=== PATIENT | female | born 1960 | race Caucasian/White ===

== ENCOUNTER 2023-04-14 12:19 | Outpatient (REF) | payer BC, SELFPAY ==
--- NOTE | ~2023-04-14 | XR_ITS ---
EXAMINATION: XR PELVIS CLINICAL INFORMATION: Hip pain. COMPARISON: Radiographs dated 03/10/2020. TECHNIQUE: 2 AP views of the pelvis are submitted. FINDINGS: There is bony demineralization. Prosthetic components of the bilateral total hip arthroplasties are appropriately aligned. No periprosthetic fracture. The sacroiliac joints are symmetric and well-maintained, and pubic symphysis is intact. There are pelvic phleboliths. There are incompletely characterized degenerative changes of the lower lumbar spine. XR/XR pelvis 1-2V IMPRESSION: There are intact bilateral hip total arthroplasties. No hardware failure or loosening is seen, and there is no periprosthetic fracture noted.
== END 2023-04-14 12:20 | disposition home or self-care (01) ==
LOC: HO.HOSX 12:19
PROVIDERS: Visit Provider Orthopaedic Surgery
DX: M25.552 Pain in left hip (principal)
CPT/HCPCS: 72170

== ENCOUNTER 2023-04-14 14:54 | Outpatient (AMB) | payer BC, SELFPAY ==
--- NOTE | 2023-04-14 14:55 | MHC.OFFVIS ---
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 HX of Left MONIKA in 2015. Allergies erythromycin base [ERYTHROMYCIN BASE] Allergy (Severe, Unverified 04/03/20 18:37) ANAPHYLAXIS peanut [PEANUT] Allergy (Severe, Unverified 04/03/20 18:37) ANAPHYLAXIS honey [HONEY] Allergy (Intermediate, Unverified 04/03/20 18:37) HIVES,NAUSEA,DYSPNEA latex [LATEX] Allergy (Intermediate, Unverified 04/03/20 18:37) BLISTERS-SEVERE oxycodone [OXYCODONE] Adverse Reaction (Unknown, Unverified 04/03/20 18:37) NAUSEA & VOMITING ENVIRONMENTAL Allergy (Intermediate, Uncoded 04/03/20 18:37) SINUS PROBLEMS,VERTIGO MAPLE SYRUP Allergy (Intermediate, Uncoded 04/03/20 18:37) HIVES,NAUSEA,DYSPNEA Erythromycin Allergy (Unknown, Uncoded 03/10/20 00:00) HPI BILINGUAL TEACHER AIDE-Left hip pain HPI Details Talita is a 63 year old woman who presents with complains of left hip pain, onset ~4 months. She says while standing from a seated position she felt a painful snapping sensation deep in her hip. She complains of pain with daily activity, which she describes more as an ache that radiates down into her knee. She says stairs are very painful, especially if she leads with her right leg. She has not gelt this dis comfort since then. She wanted to come in and make sure everything was ok. 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 She plans on retiring soon to spend time with her . 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 Review of Systems Const All systems reviewed & are unremarkable except as noted in HPI and below Physical Exam Const General: no acute distress, alert and awake Orientation/consciousness: patient oriented x3 HEENT Head: Yes normocephalic and Yes atraumatic Eyes EOM: EOMs intact bilaterally Resp Effort & Inspection: normal respiratory effort and able to speak in complete sentences Cardio Jugular venous distension: no JVD Skin General skin exam: turgor normal Rashes: no rashes Neuro General: patient oriented x3 Extrem Other: Left Hip: Full ROM Walking normally No pain with hip ROM Psych Appearance: grossly normal Affect: normal affect Attitude: cooperative Results Reviewed Results Reviewed: I personally reviewed relevant radiographs. Bilateral MONIKA in expected post operative position with no hardware complications or evidence of loosening Assessment & Plan Assessment & Plan (1) Left hip pain: Code(s): M25.552 - Pain in left hip Plan: This is a 63 year old woman with left hip pain. There is no evidence of prosthetic complication and by all accounts she seems to be doing well. She has occasional pain with daily activity, worse with using stairs. This is mostly posterolateral. Her pain occasionally radiates down into her knee. I discussed her radiogrpahs and my findings. No acute intervention warranted. She can follow up as needed. Plan Scribed for Ravi Bazan MD by Jm Vivar, medical donation professional, on 04/14/23 at 3:10 PM, EST. Orders: Orders XR pelvis 1-2V 04/14/23 M25.559 - Pain in unspecified hip Coding Level of Care Code New Pt Level 3 (06406) Diagnoses Left hip pain M25.552
== END 2023-04-14 15:13 | disposition home or self-care (01) ==
PROVIDERS: Visit Provider Orthopaedic Surgery
DX: M25.552 Pain in left hip (principal)
CPT/HCPCS: 99203

== ENCOUNTER 2024-12-03 14:02 | Outpatient (AMB) | payer BC, SELFPAY ==
--- OUTSIDE RECORDS SUMMARY | 2024-12-03 14:08 | XMS_ITS | Clinical Summary ---
Author Organization [facility] [address] [place] [address] Address [address], [place] Phone Care Team Providers Care Soaker Name Role Phone Ruben Guan MD Primary Care Provider [phone] Allergies Active Allergy Reactions Criticality Noted Date Comments Egg Nausea And Vomiting 11/17/2015 Erythromycin 10/13/2021 Latex Other 11/17/2015 Levofloxacin 10/13/2021 Medications acetaminophen (TYLENOL) 500 mg tablet Take 500 mg by mouth 3 times daily. Takes 2 tab TID Active desloratadine-pseu doephedrine (CLARINEX-D 12-hour) 2.5-120 mg per 12 hr tablet Active docusate sodium (COLACE) 100 mg capsule Take 100 mg by mouth 2 times daily. 200 docusate Active meclizine (ANTIVERT) 25 mg tablet 2 tablets (50 mg total) 4 (four) times a day. 11/17/19 16 Active senna (SENOKOT) 8.6 mg tablet Take 1 tablet by mouth daily. Active albuterol HFA (PROAIR HFA ; PROVENTIL HFA ; VENTOLIN HFA) 90 mcg/actuation inhaler 1 (one) time each day if needed. 06/07/20 24 Active calcium carbonate-cholecal ciferol (OYSTER SHELL) 250 mg-3.125 mcg (125 unit) per tablet Take 1 tablet by mouth 1 (one) time each day. Active prucalopride (Motegrity) 2 mg tabletIndications: Irritable bowel syndrome with constipation Take 2 mg by mouth 1 (one) time each day. 90 tablet 2 08/22/19 25 026 Active polyethylene glycol (Golytely) 236-22.74-6.74 -5.86 gram solution Take 4L by mouth once for one dose. May substitue any PEG. Starting at 6PM the night before your procedure drink 1 8oz glasses at your own pace until you complete half of the gallon. Finish 2nd half of the gallon 5 hours before your procedure. 4000 mL 10/13/19 25 Active cholecalciferol, vitamin D3, (VITAMIN D3 ORAL) Take by mouth 1 (one) time each day. Active magnesium citrate 100 mg tablet Take 200 mg by mouth. Active cefdinir (OMNICEF) 300 mg capsule Take 1 capsule (300 mg total) by mouth 2 (two) times a day if needed. 08/24/19 25 Active diclofenac (VOLTAREN) 1 % topical gel APPLY TO AFFECTED AREA S) FOUR TIMES A DAY NEEDED FOR PAIN 06/13/20 24 Active EPINEPHrine (EPIPEN) 0.3 mg/0.3 mL injection FOLLOW PACKAGE INSTRUCTIONS DIRECTED 01/11/20 24 Active fluconazole (DIFLUCAN) 100 mg tablet Take 1 tablet (100 mg total) by mouth 1 (one) time each day if needed. 09/10/19 25 Active fluticasone furoate-vilanteroL (BREO ELLIPTA) 100-25 mcg/dose inhaler Inhale 1 puff by mouth 1 (one) time each day. 10/06/19 25 Active gabapentin (NEURONTIN) 100 mg capsule Take 2 capsules (200 mg total) by mouth. 09/28/19 25 Active methylPREDNISolone (MEDROL DOSPAK) 4 mg tablet if needed. 03/29/20 24 Active montelukast (SINGULAIR) 10 mg tablet Take 1 tablet (10 mg total) by mouth. at bedtime 08/21/19 25 Active mupirocin (BACTROBAN) 2 % ointment APPLY TOPICALLY TO AFFECTED AREA TWO TIMES A DAY FOR 14 DAYS 10/06/19 25 Active nystatin (MYCOSTATIN) 500,000 unit tablet Take 3 tablets (1,500,000 Units total) by mouth 2 (two) times a day. 08/08/19 25 Active ondansetron ODT (ZOFRAN-ODT) 4 mg disintegrating tablet Take 1 tablet (4 mg total) by mouth. 10/21/19 21 Active SUMAtriptan (IMITREX) 50 mg tablet Take one tab by mouth at onset of migraine. May repeat dose once after 2 hours, if needed. Not to exceed 2 tabs in 24 hours. 10/21/19 21 Active hydroCHLOROthiazid e (HYDRODIURIL) 50 mg tablet Take 1 tablet (50 mg total) by mouth every other day. 08/10/19 25 Active QNASL 80 mcg/actuation HFA aerosol inhaler Administer 2 sprays into each nostril 1 (one) time each day. 09/22/19 25 Active UNABLE TO FIND 1 capsule 1 (one) time each day. Med Name: nature's bounty hair growth Active ibuprofen (ADVIL,MOTRIN) 800 mg tablet Take 1 tablet (800 mg total) by mouth 4 (four) times a day. Active UNABLE TO FIND 3 capsules 1 (one) time each day. Med Name: balance of jellyfish: 3 fruits and 3 vegetable capsules Active diphenhydrAMINE (BENADRYL) 50 mg tablet Take 1 tablet (50 mg total) by mouth if needed for itching or allergies. Active linaCLOtide (Linzess) 145 mcg capsuleIndications :Constipation, unspecified constipation type Take 1 capsule (145 mcg total) by mouth 1 (one) time each day. 30 each 2 10/30/19 25 025 Active linaCLOtide (Linzess) 290 mcg capsuleIndications :Chronic idiopathic constipation Take 1 capsule (290 mcg total) by mouth 1 (one) time each day. 90 each 3 12/01/19 25 026 Active Active Problems Problem Noted Date Diagnosed Date Smoking history 10/26/2024 Thoracic spondylosis 03/10/2016 Tubular adenoma of colon 03/10/2016 Chronic idiopathic constipation 11/17/2015 HTN (hypertension) 11/17/2015 Encounters Date Type Department Care Team Description 11/30/2024 Telephone Gastroenterology - [address] [phone] Cheryl Maldonado MD 10/29/2024 Telephone Gastroenterology - 299 [facility] [address] [phone] Ness Casanova [place] 10/26/2024 2:43 PM EDT Anesthesia Event [facility] Endoscopy [address] [place] [phone] Olive Underwood MD 10/26/2024 12:56 PM EDT - 10/26/2024 11:59 PM EDT Hospital Encounter [facility] Endoscopy [address] [place] [phone] Cheryl Maldonado MD Dusza, Sara, CRNA Kriz, Petra, MD Personal history of hyperplastic colon polyps Discharge Disposition: Home or Self Care from Last 3 Months Immunizations Name Administration Dates Next Due Influenza trivalent, with preservative (Fluzone; Afluria) 6mo and older 06/18/2021,04/22/2020,03/28/2019,2017 PPD Test 02/10/2016 Tdap Tetanus diptheria acell ular pertussis (Boostrix; Adacel) 7yo and older 04/30/2015 Surgical History Surgery Date Site/Laterality Comments OTHER SURGICAL HISTORY 2014 Left PROCEDURE: NH ARTHRP ACETBLR/PROX FEM PROSTC AGRFT/ALGRFT PARTIAL HYSTERECTOMY 2001 PROCEDURE: NH SUPRACERVICAL ABDL HYSTER W/WO RMVL TUBE OVARY; COMMENT: prolapse CARPAL TUNNEL RELEASE Bilateral PROCEDURE: HISTORICAL CARPAL TUNNEL REL OTHER SURGICAL HISTORY 2012 Right PROCEDURE: NH EXC CYST/ABERRANT BREAST TISSUE OPEN 1/> LESION; COMMENT: beningn mass and ductectomy NOSE SURGERY PROCEDURE: NH UNLISTED PROCEDURE NOSE; COMMENT: sinoplasty OTHER SURGICAL HISTORY 11/12/13 PROCEDURE: OUTSIDE PAP SMEAR OTHER SURGICAL HISTORY PROCEDURE: ---- OTHER ----; COMMENT: inclusion cyst R neck COLONOSCOPY 10/29/08 PROCEDURE: HISTORICAL COLONOSCOPY OTHER SURGICAL HISTORY 11/2015 Right PROCEDURE: NH ARTHRP ACETBLR/PROX FEM PROSTC AGRFT/ALGRFT LUMBAR SPINE SURGERY Medical History Medical History Date Comments HTN (hypertension) 11/17/2015 DX:HTN (hyper tension) Multiple environmental allergies 11/17/2015 DX:Multiple environmental allergies; COMMENT: Follows with Dr Castillo Status post total hip replac ement, left 11/17/2015 DX:Status post total hip rep lacement, bilat ; COMMENT: For OA Chronic idiopathic constipation 11/17/2015 DX:Chronic idiopathic constipation Tubular adenoma of colon 03/10/2016 DX:Tubu lar adenoma of colon Thoracic spondylosis 03/10/2016 DX:Thoracic spondylosis S/P lumbar laminectomy 10/09/2020 DX:S/P oliva mbar laminectomy; COMMENT: Bilateral L4-L5 laminotomy, partial facetectomy and foraminotomy to decompress the thecal sac and exiting nerve roots with microscope-Dr. Rizvi Migraine Asthma Irritable bowel syndrome Breast mass, right with ductecto my Family History Medical History Relation Name Comments Hypertension Father chol, hip repla cement Other: ovarian cancer Maternal Grandmother Diabetes Mother Other: back problems Mother brother , sister Multiple sclerosis Sister 1 Relation Name Status Comments Father Alive Maternal Grandmother Mother Alive Sister 1 Sister 2 Social History Tobacco Use Types Packs/Day Years Used Date Smoking Tobacco: Every Day Cigarettes Tobacco Cessation:Ready to Q uit: Not Asked; Counseling Given: Not Answered Alcohol Use Standard Drinks/Week Comments Yes 0 (1 standard drink = 0.6 oz pur e alcohol) rare Interpersonal Safety Answer Date Record ed Physical Abuse 10/26/2024 Verbal Abuse 10/26/2024 Comments No Sex and Gender Information Value Date Recorded Sex Assigned at Female 10/26/2024 12:55 PM EDT Legal Sex Female 7:26 AM EST Gender Identity Female 10/26/2024 12:55 PM EDT Sexual Orientation Straight 10/26/2024 12 :55 PM EDT Obstetrics History Last Filed Vital Signs Vital Sign Reading Time Taken Comments Blood Pressure 129/77 10/26/2024 3:37 PM EDT Pulse 97 10/26/2024 3:37 PM EDT Temperature 36.3 ??C (97.3 ??F) 10/26/2024 2:26 PM ED T Respiratory Rate 19 10/26/2024 3:37 PM EDT Oxygen Saturation 98% 10/26/2024 3:37 PM EDT Inhaled Oxygen Concentration - - Weight 81.6 kg (180 lb) 10/26/2024 2:26 PM EDT Height 165.1 cm (5' 5 ) 10/26/2024 2:26 PM EDT Body Mass Index 29.95 10/26/2024 2:26 PM EDT Plan of Treatment Health Maintenance Due Date Last Done Comments Breast Cancer Screening 1960 Zoster Vaccines (1 of 2) 01/07/2012 Cervical Cancer Screening: Pap Smear 11/12/2016 11/12/2013 Cholesterol Screening (Lipid Panel) 06/20/2022 11/17/2015 Depression Screening 06/20/2022 HIV Screening 06/20/2022 Hepatitis C Screening 06/20/2022 Social Influencers of Health Screening 06/20/2022 Hypertension/CHF/CAD Annual BMP Blood Test 06/24/2022 11/17/2015 Pneumococcal Vaccine: 50+ Years (2 of 2 - PCV) 03/11/2024 03/11/2023 Pneumococcal Vaccine: Pediatrics (0 to 5 Years) and At-Risk Patients (6 to 64 Years) (2 of 2 - PCV) 03/11/2024 03/11/2023 DTaP,Tdap,and Td Vaccines (3 - Td or Tdap) 10/31/2033 11/01/2023, 04/30/2015 Colorectal Cancer Screening: Colonoscopy 10/26/2034 10/26/2024, 12/20/2012 RSV Immunization Adult Patients (1 - 1-dose 75+ series) 2037 COVID-19 Vaccine Completed 05/14/2024, , 05/18/2021, Additional history exists Influenza Vaccine Completed 05/14/2024, , 05/21/2022, Additional history exists HIB Vaccines Aged Out No longer eligi ble based on patient's age to complete this topic HPV Vaccines Aged Out No longer eligi ble based on patient's age to complete this topic Hepatitis A Vaccines Aged Out No long er eligible based on patient's age to complete this topic Hepatitis B Vaccines Aged Out No long er eligible based on patient's age to complete this topic IPV Vaccines Aged Out No longer eligi ble based on patient's age to complete this topic MMR Vaccines Aged Out No longer eligi ble based on patient's age to complete this topic Meningococcal ACWY Vaccine Aged Out N o longer eligible based on patient's age to complete this topic Meningococcal B Vaccine Aged Out No l onger eligible based on patient's age to complete this topic RSV Immunization Patients Under 20 months Aged Out No longer eligible based on patient's age to complete this topic Varicella Vaccines Aged Out No longer eligible based on patient's age to complete this topic Procedures Procedure Name Priority Date/Time Associated Diagnosis Comments COLONOSCOPY Routine 10/26/2024 3:16 PM EDT Personal history of hyperplastic colon polyps TISSUE EXAM Routine 10/26/2024 2:54 PM EDT Personal history of hyperplastic colon polyps ANNUAL BMP BLOOD TEST Routine 11/17/2015 LIPID PANEL Routine 11/17/2015 HM PAP SMEAR Routine 11/12/2013 from Last 3 Months or Most Recently Relevant to Health Maintenance Results * COLONOSCOPY Anesthesia - MAC; [facility] ENDOSCOPY (10/26/2024 3:16 PM EDT) Anatomical Region Laterality Modality Endoscopy 10/26/2024 2:40 PM EDT Impressions 10/26/2024 3:17 PM EDT - The examined portion of the ileum was normal. ? - One 4 mm polyp in the ascending colon, removed with ? a cold snare. Resected and retrieved. ? - Two 3 to 4 mm polyps in the ascending colon, removed ? with a cold snare. Resected and retrieved. ? - Two 7 to 10 mm polyps in the transverse colon, ? removed with a hot snare. Resected and retrieved. ? - Two 3 to 4 mm polyps in the descending colon, ? removed with a cold snare. Resected and retrieved. ? - Melanosis in the colon. ? - Internal hemorrhoids. Recommendation: ?- Await pathology results. ? - Repeat colonoscopy for surveillance based on ? pathology results. Narrative 10/26/2024 3:17 PM EDT [facility] GI Patient Name: Talita Samson Procedure Date: 10/26/2024 2:40 PM Date of : 1960 Age: 64 Gender: Female Note Status: Finalized Attending MD: Cheryl Maldonado MD, Procedure Date No Time: 10/26/2024 Procedure: ? Colonoscopy Indications: ? High risk colon cancer surveillance: Personal history ? of colonic polyps Providers: ? Cheryl Maldonado MD Referring MD: ?Cheryl Maldonado MD, Ruben Guan MD Medicines: ? Propofol per Anesthesia Complications: ? No immediate complications. Estimated Blood Loss: ? Estimated blood loss: none. Procedure: ? Pre-Anesthesia Assessment: ? - ASA Grade Assessment: III - A patient with severe ? systemic disease. ? After I obtained informed consent, the scope was ? passed under direct vision. Throughout the procedure, ? the patient's blood pressure, pulse, and oxygen ? saturations were monitored continuously.The Olympus ? Pediatric Colonoscope was introduced through the anus ? and advanced to the terminal ileum. The colonoscopy ? was performed without difficulty. The patient ? tolerated the procedure well. The quality of the bowel ? preparation was adequate. Findings: ?The perianal and digital rectal examinations were ? normal. ? The terminal ileum appeared normal. ? A 4 mm polyp was found in the ascending colon. The ? polyp was sessile. The polyp was removed with a cold ? snare. Resection and retrieval were complete. ? Two sessile polyps were found in the ascending colon. ? The polyps were 3 to 4 mm in size. These polyps were ? removed with a cold snare. Resection and retrieval ? were complete. ? Two sessile polyps were found in the transverse colon. ? The polyps were 7 to 10 mm in size. These polyps were ? removed with a hot snare. Resection and retrieval were ? complete. ? Two sessile polyps were found in the descending colon. ? The polyps were 3 to 4 mm in size. These polyps were ? removed with a cold snare. Resection and retrieval ? were complete. ? A diffuse area of moderate melanosis was found in the ? entire colon. ? Internal hemorrhoids were found during retroflexion. ? The hemorrhoids were Grade I (internal hemorrhoids ? that do not prolapse). Procedure Code(s): ? --- Professional --- ? 56897, Colonoscopy, flexible; with removal of ? tumor(s), polyp(s), or other lesion(s) by snare ? technique Diagnosis Code(s): ? --- Professional --- ? Z86.010, Personal history of colonic polyps ? D12.2, Benign neoplasm of ascending colon ? D12.3, Benign neoplasm of transverse colon (hepatic ? flexure or splenic flexure) ? D12.4, Benign neoplasm of descending colon CPT copyright 2020 [employer]. All rights reserved. The codes documented in this report are preliminary and upon braille coder review may be revised to meet current compliance requirements. Cheryl Maldonado MD 10/26/2024 3:17:26 PM This report has been signed electronically.Cheryl Maldonado MD Number of Addenda: 0 Note Initiated On: 10/26/2024 2:40 PM Scope In: Scope Out: ? Endoscopy Department at [facility] - [address] [place] [address], ? [place] [address] Procedure Note Cheryl Maldonado MD - 10/26/2024 [facility] GI Patient Name: Talita Samson Procedure Date: 10/26/2024 2:40 PM Date of : 1960 Age: 64 Gender: Female Note Status: Finalized Attending MD: Cheryl Maldonado MD, Procedure Date No Time: 10/26/2024 Procedure: Colonoscopy Indications: High risk colon cancer surveillance: Personalhistory of colonic polyps Providers: Cheryl Maldonado MD Referring MD: Cheryl Maldonado MD, Ruben Guan MD Medicines: Propofol per Anesthesia Complications: No immediate complications. Estimated Blood Loss: Estimated blood loss: none. Procedure: Pre-Anesthesia Assessment: - ASA Grade Assessment: III - A patient with severe systemic disease. After I obtained informed consent, the scope was passed under direct vision. Throughout theprocedure, the patient's blood pressure, pulse, and oxygen saturations were monitored continuously.The Olympus Pediatric Colonoscope was introduced through theanus and advanced to the terminal ileum. The colonoscopy was performed without difficulty. The patient tolerated the procedure well. The quality of thebowel preparation was adequate. Findings: The perianal and digital rectal examinations were normal. The terminal ileum appeared normal. A 4 mm polyp was found in the ascending colon. The polyp was sessile. The polyp was removed with acold snare. Resection and retrieval were complete. Two sessile polyps were found in the ascendingcolon. The polyps were 3 to 4 mm in size. These polypswere removed with a cold snare. Resection and retrieval were complete. Two sessile polyps were found in the transversecolon. The polyps were 7 to 10 mm in size. These polypswere removed with a hot snare. Resection and retrievalwere complete. Two sessile polyps were found in the descendingcolon. The polyps were 3 to 4 mm in size. These polypswere removed with a cold snare. Resection and retrieval were complete. A diffuse area of moderate melanosis was found inthe entire colon. Internal hemorrhoids were found duringretroflexion. The hemorrhoids were Grade I (internal hemorrhoids that do not prolapse). Procedure Code(s): --- Professional --- 35475, Colonoscopy, flexible; with removal of tumor(s), polyp(s), or other lesion(s) by snare technique Diagnosis Code(s): --- Professional --- Z86.010, Personal history of colonic polyps D12.2, Benign neoplasm of ascending colon D12.3, Benign neoplasm of transverse colon (hepatic flexure or splenic flexure) D12.4, Benign neoplasm of descending colon CPT copyright 2020 [employer]. All rights reserved. The codes documented in this report are preliminary and upon braille coder reviewmay be revised to meet current compliance requirements. Cheryl Maldonado MD 10/26/2024 3:17:26 PM This report has been signed electronically.Cheryl Maldonado MD Number of Addenda: 0 Note Initiated On: 10/26/2024 2:40 PM Scope In: Scope Out: Endoscopy Department at [facility] - [address] [place] [phone] IMPRESSION: - The examined portion of the ileum was normal. - One 4 mm polyp in the ascending colon, removedwith a cold snare. Resected and retrieved. - Two 3 to 4 mm polyps in the ascending colon,removed with a cold snare. Resected and retrieved. - Two 7 to 10 mm polyps in the transverse colon, removed with a hot snare. Resected and retrieved. - Two 3 to 4 mm polyps in the descending colon, removed with a cold snare. Resected andretrieved. - Melanosis in the colon. - Internal hemorrhoids. Recommendation: - Await pathology results. - Repeat colonoscopy for surveillance based on pathology results. us Cheryl Maldonado MD GI~PROCEDURE ORDERABLES Final Result * Tissue exam (10/26/2024 2:54 PM EDT) Final Diagnosis A. Polyp, ascending colon, polypectomy: - Tubular adenoma. - Colonic mucosa with increased pigment-laden macrophages in the lamina propria, suggestive of melanosis coli. B. Polyps (x4 per specimen label), transverse colon, polypectomy: - Tubular adenoma(s) (multiple (greater than four) fragments). C. Polyps (x2 per specimen label), descending colon, polypectomy: - Tubular adenoma (one fragment). - Colonic mucosa with features suggestive of a hyperplastic polyp (one fragment). 10/29/2024 10:37 AM EDT [facility] Gross Description A. Large Intestine, Right/Ascending Colon, polyp: Labeled ascending colon polyp . Received in formalin are two irregular pink-brown possible mucosal tissue fragments, measuring 0.3 cm and 0.5 cm in greatest dimension, which are wrapped in paper and submitted in toto in one cassette, two pieces, multiple levels on one slide. B. Large Intestine, Transverse Colon, polyps x4: Labeled trans colon polyp x 4 . Received in formalin are seven irregular disrupted monroy-pink to brown mucosal tissue fragments, ranging from less than 0.1 cm to 0.6 cm in greatest dimension, which are wrapped in paper and submitted in toto in one cassette, six pieces, multiple levels on one slide. C. Large Intestine, Left/Descending Colon, polyps x2: Labeled descending colon polyps x 2 . Received in formalin are two irregular monroy-pink to brown mucosal tissue fragments, measuring 0.5 cm and 0.8 cm in greatest dimension, which are wrapped in paper and submitted in toto in one cassette, two pieces, multiple levels on one slide. DANIELLE 10/29/2024 10:37 AM EDT [facility] Disclaimer Unless otherwise specified, all tissue is 10% NB formalin fixed and paraffin embedded. 10/29/2024 10:37 AM EDT [facility] Tissue Ascending colon structure / Unknown 10/26/2024 2:54 PM EDT 10/26/2024 4:14 PM EDT Tissue specimen (specimen) Transverse colon structure / Unknown 10/26/2024 3:07 PM EDT 10/26/2024 4:14 PM EDT Tissue specimen (specimen) Descending colon structure / Unknown 10/26/2024 3:09 PM EDT 10/26/2024 4:14 PM EDT Cheryl Maldonado MD LAB PATHOLOGY ORDERABLES Final Result [facility] [address] [place] [address], * Annual BMP Blood Test (11/17/2015) Annual [facility] Blood Test Abstracted Historical Provider HEALTH MAINTENANCE Final Result * (ABNORMAL) Lipid panel (11/17/2015) LDL/HDL Ratio 3 0 - 4 Triglycerides 155(A) 0 - 150 mg/dL Cholesterol 145 0 - 200 mg/dL HDL 51 >=40 mg/dL LDL Cholesterol 63 0 - 100 mg/dL Blood Venous blood specimen / Unknown us Historical Provider LAB BLOOD ORDERABLES Apurva l Result * Pap Smear (11/12/2013) Pap smear No Interpretation , Abstracted us Historical Provider HEALTH MAINTENANCE Final Result from Last 3 Months or Most Recently Relevant to Health Maintenance Insurance [facility] ([facility], [facility]) Care Teams Soaker Relationship Specialty Start Date End Date Ruben Guan MD [address] [place] [address] PCP - General Internal Medicine 06/27/24
--- OUTSIDE RECORDS SUMMARY | 2024-12-03 14:08 | XMS_ITS | Clinical Summary ---
Author Organization [facility] Address [address] [place] [address] Care Team Providers Care Bill Distributor Name Role Phone Zainab Tobin Primary Care Provider vailable Social History Tobacco Use Types Packs/Day Years Used Date Smoking Tobacco: Never Assessed Sex and Gender Information Value Date Recorded Sex Assigned at Not on file Gender Identity Not on file Sexual Orientation Not on file Plan of Treatment Health Maintenance Due Date Last Done Comments Hepatitis C Screening 1960 COVID-19 Vaccine (#1) 1960 Depression Screening 1974 Preventative Health Evaluation 01/07/1980 Cervical Cancer Screening (Pap Smear) 1983 Colon Cancer Screening (Colonoscopy) 2007 Breast Cancer Screening (Mammogram) 01/07/2012 Shingrix-Zoster Vaccine (1 o f 2) 01/07/2012 Influenza Vaccine (#1) 2024 0, 03/28/2019, 05/23/2018 DTap / Tdap / Td (2 - Td or Tdap) 04/30/2025 04/30/2015 RSV Adult > 60+ Yrs or (1 - 1-dose 75+ series) 2037 Hepatitis B Vaccines Aged Out No long er eligible based on patient's age to complete this topic Pneumococcal Vaccine Aged Out No long er eligible based on patient's age to complete this topic RSV Ped < 20 months Aged Out No longe r eligible based on patient's age to complete this topic Care Teams Bill Distributor Relationship Specialty Start Date End Date Zainab Tobin PCP - General Internal Medicine 10/15/20
--- OUTSIDE RECORDS SUMMARY | 2024-12-03 14:08 | XMS_ITS | Encounter Summary ---
Author Organization [facility] Address [address] [place] [address] Care Team Providers Care Youth Director Name Role Phone Hugo Guan MD Primary Care Provider [phone] Encounter Details Date Type Department Care Team ([facility] st Contact Info) Description 11/30/2024 Telephone Gastroenterology - [address] [facility] [address] [place] [id number] Cheryl Maldonado MD [address] [facility] [address] [place] [address] Social History Tobacco Use Types Packs/Day Years Used Date Smoking Tobacco: Every Day Cigarettes Alcohol Use Standard Drinks/Week Comments Yes 0 [...] Orientation Straight 10/26/2024 12 :55 PM EDT documented as of this encounter Progress Notes * Ness Casanova MA - 12/03/2024 8:19 AM EDT LMOM TO CALL BACK * Aga Vaca - 11/30/2024 1:25 PM EDT Pt called to see if she could double her Linzess dosage because she doesn't feel like her current dosage is helping anymore? documented in this encounter Plan of Treatment Not on file documented as of this encounter Visit Diagnoses Not on filedocumented in this encounter Care Teams Youth Director Relationship Specialty Start Date End Date Hugo Guan MD [address] [place] [id number] PCP - General Internal Medicine 06/27/24 documented as of this encounter
--- NOTE | 2024-12-03 14:15 | HO.SPINEOV ---
Intake Visit Reasons: Neck pain Intake Note: Ms. Samson is here today c/o neck pain. Erosion Control Coordinator Required: No Allergies erythromycin base [ERYTHROMYCIN BASE] Allergy (Severe, Unverified 04/03/20 18:37) ANAPHYLAXIS peanut [PEANUT] Allergy (Severe, Unverified 04/03/20 18:37) ANAPHYLAXIS honey [HONEY] Allergy (Intermediate, Unverified 04/03/20 18:37) HIVES,NAUSEA,DYSPNEA latex [LATEX] Allergy (Intermediate, Unverified 04/03/20 18:37) BLISTERS-SEVERE oxycodone [OXYCODONE] Adverse Reaction (Unknown, Unverified 04/03/20 18:37) NAUSEA & VOMITING ENVIRONMENTAL Allergy (Intermediate, Uncoded 04/03/20 18:37) SINUS PROBLEMS,VERTIGO MAPLE SYRUP Allergy (Intermediate, Uncoded 04/03/20 18:37) HIVES,NAUSEA,DYSPNEA Erythromycin Allergy (Unknown, Uncoded 03/10/20 00:00) Assessment & Plan Assessment & Plan (1) Cervical myelopathy: Code(s): G95.9 - Disease of spinal cord, unspecified Category: Medical (2) Numbness and tingling of left side of face: Code(s): R20.0 - Anesthesia of skin; R20.2 - Paresthesia of skin Category: Medical Plan Mrs Samson is here in follow-up. She is a patient known to us from our previous practice at [facility]. We did a lumbar laminectomy on her for stenosis, and have been following her clinically for what is borderline symptomatic cervical myelopathy. She was a nurse, very active and in general was not demonstrating any myelopathic signs on her exam and she had been reluctant to undergo neck surgery so our choice of treatment was to just monitor her symptomatically. Through a number of follow-up visits through the years she remained stable and given her clinical expertise we told her just to call us if she starts to get worsening symptoms and educated her. Fast forward over the last couple years, she has noticed an increase in numbness of her arms going into her hands and dropping things. About a month or more ago, she had an episode where the whole left side of her body went numb. This interestingly also included her face in her tongue. Her balance has been getting worse as well. On my exam today, she is able to stand up to the examining table on her own and walk in the hallways independently but tandem gait testing revealed some instability. She has good strength in bilateral upper and lower extremities. Slightly brisk reflexes on the right but no Arana's sign are no clonus. Face is symmetric, tongue midline, pupils equal responsive reactive to light, extraocular movements are intact without nystagmus. At this point without any recent imaging I think we should pursue cervical MRI. I will include the brain MRI as well given that she has been having numbness of her face and her tongue. It should be noted the patient has a strong family history for demyelinating diseases including not only her mother but her sister. Therefore I think we should at least exclude that she is not having some variant of MS with the facial numbness. Total amount of time spent in this visit was 20 minutes in discussion of symptoms, previous cervical MRI imaging results and subsequent plan of care Dario Rizvi MD,PhD [facility] [place] Orders: Orders MR head/brain wo con Today R20.0 - Anesthesia of skin, R20.2 - Paresthesia of skin MR cervical spine wo con Today G95.9 - Disease of spinal cord, unspecified Coding Level of Care Code Est Pt Level 3 (65626) Diagnoses Cervical myelopathy G95.9 Numbness and tingling of left side of face R20.0; R20.2
== END 2024-12-03 15:50 | disposition home or self-care (01) ==
LOC: HO.HNS 14:03
PROVIDERS: Visit Provider Physician Assistant
DX: G95.9 Disease of spinal cord, unspecified (principal); R20.0 Anesthesia of skin; R20.2 Paresthesia of skin
CPT/HCPCS: 99213

== ENCOUNTER → 2024-12-03 14:02 | Outpatient (BNVA) | payer BC, SELFPAY | PROVIDERS: Visit Provider Physician Assistant ==

== ENCOUNTER 2024-12-22 14:24 | Outpatient (REF) | payer BC, SELFPAY ==
--- NOTE | ~2024-12-22 | MR_ITS ---
CLINICAL HISTORY: G95.9 - Disease of spinal cord, unspecified MR cervical spine without gadolinium Comparison: None Findings: Visualized intracranial contents are unremarkable. Soft tissues of the neck are normal. Cervical cord normal size. Moderate ill-defined STIR signal elevation within the central substance of the cord at the C2-C3 disc space level. Loss of normal cervical lordosis. 4 mm of anterolisthesis of C2 on C3. 2 mm of retrolisthesis of C6 on C7. No acute fractures or pathologic bone lesions. Moderate reactive signal within the endplates adjacent to the C5-C6 and C6-C7 intervertebral disc. Mild reactive signal within the remaining cervical and upper thoracic endplates. C2-C3:Moderate disc desiccation. Mild diffuse disc bulge. Congenital canal stenosis. Moderate facet and uncovertebral hypertrophy bilaterally. Severe canal stenosis. Moderate cord flattening. Severe hdjh-ctrmelz-kksx-right foraminal stenosis with aoxg-vwiigfj-hsqj-right C3 nerve root compression. C3-C4:Congenital canal stenosis. Moderate disc desiccation. Mild diffuse disc bulge with superimposed right paracentral protrusion. Moderate facet and uncovertebral hypertrophy bilaterally. Severe canal stenosis with mild cord flattening. Severe right and moderate to severe left foraminal stenosis. Cfbkx-aosftzh-cgfn-left C4 nerve root compression. C4-C5:Moderate disc desiccation. Mild diffuse disc bulge with superimposed right paracentral protrusion. Congenital canal stenosis. Mild facet and uncovertebral hypertrophy. Severe canal stenosis. Mild right cord flattening. Moderate bilateral foraminal stenosis. C5-C6:Congenital canal stenosis. Moderate disc desiccation. Moderate diffuse disc bulge/osteophyte. Superimposed central broad-based protrusion. Moderate facet and uncovertebral hypertrophy bilaterally. Severe canal stenosis. Mild cord flattening. Moderate to severe right and severe left foraminal stenosis with zgyt-hecvcgq-umxq-right C6 nerve root compression. C6-C7:Moderate disc desiccation. Moderate diffuse disc bulge. Congenital canal stenosis. Facet and uncovertebral hypertrophy bilaterally. Severe canal stenosis. Mild cord flattening. Moderate to severe left and severe right foraminal stenosis. Wnqyo-ahwjdpa-ghbm-left C7 nerve root compression. C7-T1:Moderate disc desiccation. Mild diffuse disc bulge. Mild facet and uncovertebral hypertrophy bilaterally. Mild canal stenosis. Moderate bilateral foraminal stenosis. IMPRESSION: 1. Increased T2 signal intensity within the upper cervical cord with the associated severe canal stenosis and cord flattening, consistent with cord injury/gliosis. 2. Multilevel degenerative disc and facet disease, as well as uncovertebral hypertrophy. 3. Multilevel canal stenoses, with multilevel cord flattening throughout the cervical spine as above. 4. Multilevel foraminal stenoses with associated intraforaminal nerve root compression throughout the cervical spine as described above. This document has been electronically signed by: Gladys Villa MD on 12/24/2024 17:21:24
--- NOTE | ~2024-12-22 | MR_ITS ---
CLINICAL HISTORY: R20.0 - Anesthesia of skin MR Brain without gadolinium Comparison: OT - MR HEAD/BRAIN WO CON - 12/22/24 15:21 EDT Findings: No restricted diffusion. No intra-axial mass or hemorrhage. Mild diffuse cerebral volume loss. No midline shift. No hydrocephalus. Vascular flow voids are intact. The orbits are normal. Small amount of bilateral mastoid fluid. Sinuses are clear. No focal bone lesion. IMPRESSION: No acute process. No explanation for skin anesthesia. This document has been electronically signed by: Gladys Villa MD on 12/24/2024 17:01:31
== END 2024-12-22 14:25 | disposition home or self-care (01) ==
LOC: HO.MRI 14:24
PROVIDERS: Visit Provider Physician Assistant
DX: G95.9 Disease of spinal cord, unspecified (principal); R20.0 Anesthesia of skin; R20.2 Paresthesia of skin
CPT/HCPCS: 70551; 72141

== ENCOUNTER → 2024-12-22 14:30 | Outpatient (BNV) | payer BC, SELFPAY | PROVIDERS: Visit Provider Radiology Diagnostic Radiology | DX: M50.30 Other cervical disc degeneration, unspecified cervical region (principal); M99.61 Osseous and subluxation stenosis of intervertebral foramina of cervical region; R20.0 Anesthesia of skin | CPT/HCPCS: 70551; 72141 ==

== ENCOUNTER 2025-02-13 13:35 | Outpatient (AMB) | payer BC, SELFPAY ==
--- NOTE | 2025-02-13 13:59 | A.SPINEOV_ITS ---
Intake Visit Reasons: MRI f/up Intake Note: Ms. Max is here today to F/u on the results to MRI. 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 Allergies erythromycin base (ERYTHROMYCIN BASE) Allergy (Severe, Unverified 04/03/20 18:37) ANAPHYLAXIS peanut (PEANUT) Allergy (Severe, Unverified 04/03/20 18:37) ANAPHYLAXIS honey (HONEY) Allergy (Intermediate, Unverified 04/03/20 18:37) HIVES,NAUSEA,DYSPNEA latex (LATEX) Allergy (Intermediate, Unverified 04/03/20 18:37) BLISTERS-SEVERE oxycodone (OXYCODONE) Adverse Reaction (Unknown, Unverified 04/03/20 18:37) NAUSEA & VOMITING ENVIRONMENTAL Allergy (Intermediate, Uncoded 04/03/20 18:37) SINUS PROBLEMS,VERTIGO MAPLE SYRUP Allergy (Intermediate, Uncoded 04/03/20 18:37) HIVES,NAUSEA,DYSPNEA Erythromycin Allergy (Unknown, Uncoded 03/10/20 00:00) Assessment & Plan Assessment & Plan (1) Cervical myelopathy: Code(s): G95.9 - Disease of spinal cord, unspecified Category: Medical Plan Mrs Max is here in follow-up. Her MRI done at [facility] shows she has severe spinal cord compression at C2-3 as well as moderate spinal cord compression at C5-6. We did x-rays here in the office today and this shows significant progression of the anterior osteophytes seen on her CT scan and x-ray done at [facility] in 2020. 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 She reports today now that she also has issues with swallowing and feeling of food getting stuck in her esophagus. Dr. Rizvi and I had a lengthy discussion with her about surgery. Given the significant change in the C2-3 area with now anterior subluxation and cord signal change, in addition to her diffuse symptoms of numbness and weakness in the arms and legs, we are recommending surgery anterior cervical diskectomy and fusion C2-3 with a plate. Because of the dysphagia and problems with swallowing we are also going to do anterior osteophyte resection at the same time. We have tentatively scheduled her for 03/13/2025. The patient was given risk and benefits of surgery including but not limited to infection, hematoma, nerve injury, durotomy, weakness, persistent pain. We discussed that if undergoing anterior cervical fusion there may be trachea or esophageal injury, hoarseness, or difficulty swallowing. There is a risk of pseudoarthrosis or instrumentation failure if undergoing cervical fusion. We also reviewed the option to continue with conservative treatment and patient wishes to proceed with surgery. They are aware they should stop NSAIDs 7 days prior to surgery. All questions were answered to the best of our ability. If there is anything about this patient's medical history that we have overlooked or concerns you have about us proceeding with surgery we would appreciate any input you can offer Total amount of time spent in this visit was 20 minutes in discussion of symptoms, cervical MRI imaging results and subsequent plan of care Dario Rizvi MD,PhD [facility] Orders: Orders XR cervical spine 4V Today G95.9 - Disease of spinal cord, unspecified Coding Level of Care Code Est Pt Level 3 (85058) Diagnoses Cervical myelopathy G95.9
--- OUTSIDE RECORDS SUMMARY | 2025-02-13 14:12 | XMS_ITS | Clinical Summary ---
Author Organization [facility] Address [address] [place] [address] Care Team Providers Care Territory Outside Sales Manager Name Role Phone Zainab Tobin Primary Care [...] o f 2) 01/07/2012 Influenza Vaccine (#1) 2025 0, 03/28/2019, 05/23/2018 DTap / Tdap / [...] age to complete this topic Care Teams Territory Outside Sales Manager Relationship Specialty Start Date End Date Zainab Tobin PCP - General Internal Medicine 10/15/20
--- OUTSIDE RECORDS SUMMARY | 2025-02-13 14:12 | XMS_ITS ---
Author Name [facility] Organization Unknown Care Team Organization Name Specialty Phone Email Start Date End Da julio cesar [employer] [facility] [employer] ([facility]) 06/01/2024
--- OUTSIDE RECORDS SUMMARY | 2025-02-13 14:12 | XMS_ITS | Clinical Summary ---
Author Organization [facility] [address] [place] [address] Address [address] [place], [place] Phone Care Team Providers Care Electromechanical Equipment Tester Name Role Phone Ruben Guan MD Primary Care Provider [phone] Allergies Active Allergy Reactions Criticality Noted Date [...] time each day. Med Name: balance of [place]: 3 fruits and 3 vegetable capsules Active diphenhydrAMINE (BENADRYL) 50 mg tablet Take 1 tablet (50 mg total) by mouth if needed for itching or allergies. Active linaCLOtide (Linzess) 290 mcg capsuleIndications :Chronic idiopathic constipation Take 1 capsule (290 mcg total) by mouth 1 (one) time each day. 90 each 3 12/01/19 25 026 Active linaCLOtide (Linzess) 145 mcg capsuleIndications :Constipation, unspecified constipation type Take 1 capsule (145 mcg total) by mouth 1 (one) time each day. 30 each 2 10/30/19 25 025 Active Problems Problem Noted Date Diagnosed Date Smoking history 10/26/2024 Thoracic spondylosis 03/10/2016 Tubular adenoma of colon 03/10/2016 Chronic idiopathic constipation 11/17/2015 HTN (hypertension) 11/17/2015 Encounters Date Type Department Care Team Description 11/30/2024 Telephone Gastroenterology - [address] [facility] [address] [place] [address] Cheryl Maldonado MD from Last 3 Months Immunizations Name Administration Dates Next Due Influenza trivalent, with preservative (Fluzone; Afluria) 6mo and older 06/18/2021,04/22/2020,03/28/2019,2017 PPD Test 02/10/2016 Tdap Tetanus diptheria acell ular pertussis (Boostrix; Adacel) 7yo and older 04/30/2015 Surgical History Surgery Date Site/Laterality Comments OTHER SURGICAL HISTORY 2014 Left PROCEDURE: [place] ARTHRP ACETBLR/PROX FEM PROSTC AGRFT/ALGRFT PARTIAL HYSTERECTOMY 2001 PROCEDURE: [place] SUPRACERVICAL ABDL HYSTER W/WO RMVL TUBE OVARY; COMMENT: prolapse CARPAL TUNNEL RELEASE Bilateral PROCEDURE: HISTORICAL CARPAL TUNNEL REL OTHER SURGICAL HISTORY 2012 Right PROCEDURE: [place] EXC CYST/ABERRANT BREAST TISSUE OPEN 1/> LESION; COMMENT: beningn mass and ductectomy NOSE SURGERY PROCEDURE: [place] UNLISTED PROCEDURE NOSE; COMMENT: sinoplasty OTHER SURGICAL HISTORY 11/12/13 PROCEDURE: OUTSIDE PAP SMEAR OTHER SURGICAL HISTORY PROCEDURE: ---- OTHER ----; COMMENT: inclusion cyst R neck COLONOSCOPY 10/29/08 PROCEDURE: HISTORICAL COLONOSCOPY OTHER SURGICAL HISTORY 11/2015 Right PROCEDURE: [place] ARTHRP ACETBLR/PROX FEM PROSTC AGRFT/ALGRFT LUMBAR SPINE [...] 97 10/26/2024 3:37 PM EDT Temperature 36.3 C (97.3 F) 10/26/2024 2:26 PM EDT Respiratory Rate 19 10/26/2024 3:37 PM EDT Oxygen Saturation 98% 10/26/2024 3:37 PM EDT Inhaled Oxygen Concentration - - Weight 81.6 kg (180 lb) 10/26/2024 2:26 PM EDT Height 165.1 cm (5' 5 ) 10/26/2024 2:26 PM EDT Body Mass Index 29.95 10/26/2024 2:26 PM EDT Plan of Treatment Upcoming Encounters Date Type Department Care Team (Late st Contact Info) Description 03/13/2025 3:30 PM EDT Office Visit Gastroenterology - [address] [facility] [address] [place] [phone] Leticia Steve PA [address] [facility] [address] [place] [address] Health Maintenance Due Date Last Done Comments Breast Cancer Screening 1960 Zoster Vaccines (1 of 2) 01/07/2012 Cervical Cancer Screening: Pap Smear 11/12/2016 11/12/2013 Cholesterol Screening (Lipid Panel) 06/20/2022 11/17/2015 HIV Screening 06/20/2022 Hepatitis C Screening 06/20/2022 Social Influencers of Health Screening 06/20/2022 Hypertension/CHF/CAD Annual BMP Blood Test 06/24/2022 11/17/2015 Pneumococcal Vaccine: 50+ Years (2 of 2 - PCV) 03/11/2024 03/11/2023 Depression Screening 07/18/2024 Influenza Vaccine (#1) 2025 , 05/20/2023, 05/21/2022, Additional history exists DTaP,Tdap,and Td Vaccines (3 - Td or Tdap) 10/31/2033 11/01/2023, 04/30/2015 Colorectal Cancer Screening: Colonoscopy 10/26/2034 10/26/2024, 12/20/2012 RSV Immunization Adult Patients (1 - 1-dose 75+ series) 2037 COVID-19 Vaccine Completed 05/14/2024, , 05/18/2021, Additional history exists HIB Vaccines Aged Out [...] TEST Routine 11/17/2015 LIPID PANEL Routine 11/17/2015 PAP SMEAR Routine 11/12/2013 from Last 3 Months or Most Recently Relevant to Health Maintenance Results * COLONOSCOPY Anesthesia - MAC; [facility] ENDOSCOPY (10/26/2024 3:16 PM EDT) Anatomical Region Laterality Modality Endoscopy 10/26/2024 2:40 PM EDT Impressions 10/26/2024 3:17 PM EDT - The examined portion of the ileum was normal. - One 4 mm polyp in the ascending colon, removed with a cold snare. Resected and retrieved. - Two 3 to 4 mm polyps in the ascending colon, removed with a cold snare. Resected and retrieved. - Two 7 to 10 mm polyps in the transverse colon, removed with a hot snare. Resected and retrieved. - Two 3 to 4 mm polyps in the descending colon, removed with a cold snare. Resected and retrieved. - Melanosis in the colon. - Internal hemorrhoids. Recommendation: - Await pathology results. - Repeat colonoscopy for surveillance based on pathology results. Narrative 10/26/2024 3:17 PM EDT [facility] GI Patient Name: Shira Samson Procedure Date: 10/26/2024 2:40 PM Date of : 1960 Age: 64 Gender: Female Note Status: Finalized Attending MD: Cheryl Maldonado MD, Procedure Date No Time: 10/26/2024 Procedure: Colonoscopy Indications: High risk colon cancer surveillance: Personal history of colonic polyps Providers: Cheryl Maldonado MD Referring MD: Cheryl Maldonado MD, Ruben Guan MD Medicines: Propofol per Anesthesia Complications: No immediate complications. Estimated Blood Loss: Estimated blood loss: none. Procedure: Pre-Anesthesia Assessment: - ASA Grade Assessment: III - A patient with severe systemic disease. After I obtained informed consent, the scope was passed under direct vision. Throughout the procedure, the patient's blood pressure, pulse, and oxygen saturations were monitored continuously.The Olympus Pediatric Colonoscope was introduced through the anus and advanced to the terminal ileum. The colonoscopy was performed without difficulty. The patient tolerated the procedure well. The quality of the bowel preparation was adequate. Findings: The perianal and digital rectal examinations were normal. The terminal ileum appeared normal. A 4 mm polyp was found in the ascending colon. The polyp was sessile. The polyp was removed with a cold snare. Resection and retrieval were complete. Two sessile polyps were found in the ascending colon. The polyps were 3 to 4 mm in size. These polyps were removed with a cold snare. Resection and retrieval were complete. Two sessile polyps were found in the transverse colon. The polyps were 7 to 10 mm in size. These polyps were removed with a hot snare. Resection and retrieval were complete. Two sessile polyps were found in the descending colon. The polyps were 3 to 4 mm in size. These polyps were removed with a cold snare. Resection and retrieval were complete. A diffuse area of moderate melanosis was found in the entire colon. Internal hemorrhoids were found during retroflexion. The hemorrhoids were Grade I (internal hemorrhoids that do not prolapse). Procedure Code(s): --- Professional --- 46290, Colonoscopy, flexible; with removal of tumor(s), polyp(s), or other lesion(s) by snare technique Diagnosis Code(s): --- Professional --- Z86.010, Personal history of colonic polyps D12.2, Benign neoplasm of ascending colon D12.3, Benign neoplasm of transverse colon (hepatic flexure or splenic flexure) D12.4, Benign neoplasm of descending colon CPT copyright 2020 [employer]. All rights reserved. The codes documented in this report are preliminary and upon logistics director review may be revised to meet current compliance requirements. Cheryl Maldonado MD 10/26/2024 3:17:26 PM This report has been signed electronically.Cheryl Maldonado MD Number of Addenda: 0 Note Initiated On: 10/26/2024 2:40 PM Scope In: Scope Out: Endoscopy Department at [facility] - [address] [place] [id number] Procedure Note Cheryl Maldonado MD - 10/26/2024 [facility] GI Patient Name: Shira Samson Procedure Date: 10/26/2024 2:40 PM Date [...] not prolapse). Procedure Code(s): --- Professional --- 63709, Colonoscopy, flexible; with removal of tumor(s), polyp(s), or other lesion(s) by snare technique Diagnosis Code(s): --- Professional --- Z86.010, Personal history of colonic polyps D12.2, Benign neoplasm of ascending colon D12.3, Benign neoplasm of transverse colon (hepatic flexure or splenic flexure) D12.4, Benign neoplasm of descending colon CPT copyright 2020 [employer]. All rights reserved. The codes documented in this report are preliminary and upon logistics director reviewmay be revised to meet current compliance requirements. Cheryl Maldonado MD 10/26/2024 3:17:26 PM This report has been signed electronically.Cheryl Maldonado MD Number of Addenda: 0 Note Initiated On: 10/26/2024 2:40 PM Scope In: Scope Out: Endoscopy Department at [facility] - [address] [place] [id number] IMPRESSION: - The examined portion of the [...] colonoscopy for surveillance based on pathology results. Cheryl Maldonado MD GI~PROCEDURE ORDERABLES Final Result * Annual BMP Blood Test (11/17/2015) [facility] Annual BMP Blood Test Abstracted Result [facility] [place] [facility] Final Result * (ABNORMAL) Lipid panel (11/17/2015) [facility] LDL/HDL Ratio 3 0 - 4 Triglycerides 155(A) 0 - 150 mg/dL Cholesterol 145 0 - 200 mg/dL HDL 51 >=40 mg/dL LDL Cholesterol 63 0 - 100 mg/dL Blood Venous blood specimen / Unknown Result [facility] [place] [facility] LAB BLOOD ORDERABLES Apurva l Result * Pap Smear (11/12/2013) [facility] Pap smear No Interpretation , Abstracted Result [facility] [place] [facility] Final Result from Last 3 Months or Most Recently Relevant to Health Maintenance Insurance [facility] Care Teams Electromechanical Equipment Tester Relationship Specialty Start Date End Date Ruben Guan MD [place], [place] PCP - General Internal Medicine 06/27/24
== END 2025-02-13 15:33 | disposition home or self-care (01) ==
LOC: HO.HNS 13:36
PROVIDERS: Visit Provider Physician Assistant
DX: G95.9 Disease of spinal cord, unspecified (principal)
CPT/HCPCS: 99213

== ENCOUNTER 2025-02-13 13:35 | Outpatient (REF) | payer BC, SELFPAY ==
--- NOTE | ~2025-02-13 | XR_ITS ---
EXAMINATION: XR CERVICAL SPINE CLINICAL INFORMATION: G95.9 - Disease of spinal cord, unspecified COMPARISON: None available. TECHNIQUE: 3 views of the cervical spine were obtained. FINDINGS: There is straightening of the cervical lordosis. There is no prevertebral soft tissue swelling. There are extensive anterior osteophytes most pronounced between C3-C6. C2-3: There is 8 millimeters anterolisthesis during flexion and 3 mm during extension there is concern for instability. There is narrowing of the facet joints with osteophytes and sclerosis. C5-6, C6-7, and C7-T1 demonstrate mild to moderate disc space narrowing and endplate osteophytes. XR/XR cervical spine 4V IMPRESSION: There is straightening of the expected cervical lordosis. This can be idiopathic, but can also be related to degenerative change, muscle spasm, or posterior soft tissue injury. Possible instability at C2-3. Increased mobility at this level is probably related to decreased mobility of other cervical levels. Electronically signed by: Js Phelps MD 02/13/2025 03:03 PM EDT
== END 2025-02-13 13:36 | disposition home or self-care (01) ==
LOC: HO.HOSX 13:35
PROVIDERS: Visit Provider Physician Assistant
DX: G95.9 Disease of spinal cord, unspecified (principal); R20.0 Anesthesia of skin; R53.1 Weakness; M79.604 Pain in right leg
CPT/HCPCS: 72050

== ENCOUNTER → 2025-02-13 14:43 | Outpatient (BNV) | payer BC, SELFPAY | PROVIDERS: Visit Provider Radiology Diagnostic Radiology | DX: M47.812 Spondylosis without myelopathy or radiculopathy, cervical region (principal) | CPT/HCPCS: 72050 ==

== ENCOUNTER 2025-03-03 18:30 | Outpatient (REF) | payer BC, SELFPAY ==
--- NOTE | ~2025-03-03 | MR_ITS ---
CLINICAL HISTORY: M54.16 - Radiculopathy, lumbar region Lumbar MRI Without intravenous Contrast : Comparison: None Findings: Alignment is good No Spondylolysis Bone marrow cellularity is normal. No fractures. Paravertebral soft tissues: Unremarkable T12-L1: The conus medullaris is located at T12-L1 L1-L2: No disc protrusion. No foraminal stenosis L2-L3: There is moderate canal stenosis due to disc space narrowing, posterior ligament invagination and facet hypertrophy. Mild foraminal stenosis. L3-L4: There is advanced canal stenosis secondary to posterior broad-based 4 mm disc protrusion, posterior ligament invagination and facet hypertrophy Moderate bilateral foraminal stenosis. L4-L5: There is moderate disc space narrowing, posterior subligamentous broad-based 7 mm disc protrusion and possible 14 x 9 mm extruded disc fragment to the right of the midline. There is advanced circumferential canal stenosis due to facet hypertrophy. There has been posterior decompression surgery. No hematoma. No pseudo meningocele There is bone marrow edema involving L4 and L5 vertebral bodies mostly bordering the intervertebral disc endplates and extending into the right pedicle of L5 L5-S1: Posterior central 4.4 mm focal disc protrusion with radial tear and left intraforaminal 4.7 mm focal disc protrusion. There is moderate bilateral foraminal stenosis. Impression: Nonspecific bone marrow edema involving the L4 and L5 vertebral bodies. Differential diagnosis would include osteitis, osteomyelitis, or insufficiency fractures. Consider adding T1 intravenous contrast sequence to more accurately differentiate infectious from non infectious etiology. No paravertebral soft tissue abnormal fluid collection or abscess at this time. This document has been electronically signed by: Darrion Mccormick MD on 03/03/2025 20:03:47
--- OUTSIDE RECORDS SUMMARY | 2025-03-03 18:39 | XMS_ITS | Clinical Summary ---
Author Organization [facility] Address [address] [place] [address] Care Team Providers Care Load Out Supervisor Name Role Phone Zainab Tobin Primary Care [...] age to complete this topic Care Teams Load Out Supervisor Relationship Specialty Start Date End Date Zainab Tobin PCP - General Internal Medicine 10/15/20
--- OUTSIDE RECORDS SUMMARY | 2025-03-03 18:39 | XMS_ITS | Clinical Summary ---
Author Organization [facility] [address] [place] [address] Address [address] [place], [place] Phone Care Team Providers Care Vacuum Cleaner Repair Person Name Role Phone Ruben Guan MD Primary Care Provider [phone] Allergies Active Allergy Reactions Criticality Noted Date [...] time each day. Med Name: balance of [employer] Cremation: 3 fruits and 3 vegetable capsules Active diphenhydrAMINE (BENADRYL) 50 mg tablet Take 1 tablet (50 mg total) by mouth if needed for itching or allergies. Active linaCLOtide (Linzess) 290 mcg capsuleIndications :Chronic idiopathic constipation Take 1 capsule (290 mcg total) by mouth 1 (one) time each day. 90 each 3 02/22/20 25 026 Active linaCLOtide (Linzess) 290 mcg capsuleIndications :Chronic idiopathic constipation Take 1 capsule (290 mcg total) by mouth 1 (one) time each day. 90 each 3 12/01/19 25 025 Discontin ued(Reord er) Active Problems Problem Noted Date Diagnosed Date Smoking history 10/26/2024 Thoracic spondylosis 03/10/2016 Tubular adenoma of colon 03/10/2016 Chronic idiopathic constipation 11/17/2015 HTN (hypertension) 11/17/2015 Immunizations Name Administration Dates Next Due Influenza trivalent, with preservative (Fluzone; Afluria) 6mo and older 06/18/2021,04/22/2020,03/28/2019,2017 PPD Test 02/10/2016 Tdap Tetanus diptheria acell ular pertussis (Boostrix; Adacel) 7yo and older 04/30/2015 Surgical History Surgery Date Site/Laterality Comments OTHER SURGICAL HISTORY 2014 Left PROCEDURE: TN ARTHRP ACETBLR/PROX FEM PROSTC AGRFT/ALGRFT PARTIAL HYSTERECTOMY 2001 PROCEDURE: TN SUPRACERVICAL ABDL HYSTER W/WO RMVL TUBE OVARY; COMMENT: prolapse CARPAL TUNNEL RELEASE Bilateral PROCEDURE: HISTORICAL CARPAL TUNNEL REL OTHER SURGICAL HISTORY 2012 Right PROCEDURE: TN EXC CYST/ABERRANT BREAST TISSUE OPEN 1/> LESION; COMMENT: beningn mass and ductectomy NOSE SURGERY PROCEDURE: TN UNLISTED PROCEDURE NOSE; COMMENT: sinoplasty OTHER SURGICAL HISTORY 11/12/13 PROCEDURE: OUTSIDE PAP SMEAR OTHER SURGICAL HISTORY PROCEDURE: ---- OTHER ----; COMMENT: inclusion cyst R neck COLONOSCOPY 10/29/08 PROCEDURE: HISTORICAL COLONOSCOPY OTHER SURGICAL HISTORY 11/2015 Right PROCEDURE: TN ARTHRP ACETBLR/PROX FEM PROSTC AGRFT/ALGRFT LUMBAR SPINE [...] Office Visit Gastroenterology - [address] [facility] [address] [place] [address] Leticia Steve PA [address] [place] [address] Health Maintenance Due Date Last Done Comments [...] Depression Screening 07/18/2024 Influenza Vaccine (#1) 2025 4, 05/20/2023, 05/21/2022, Additional history exists DTaP,Tdap,and Td [...] Maintenance Results * COLONOSCOPY Anesthesia - MAC; [facility] ENDOSCOPY (10/26/2024 3:16 PM EDT) Anatomical [...] pathology results. Narrative 10/26/2024 3:17 PM EDT [facility] GI Patient Name: Shira Samson Procedure [...] not prolapse). Procedure Code(s): --- Professional --- 15341, Colonoscopy, flexible; with removal of tumor(s), polyp(s), or other lesion(s) by snare technique Diagnosis Code(s): --- Professional --- Z86.010, Personal history of colonic polyps D12.2, Benign neoplasm of ascending colon D12.3, Benign neoplasm of transverse colon (hepatic flexure or splenic flexure) D12.4, Benign neoplasm of descending colon CPT copyright 2020 [employer]. All rights reserved. The codes documented in this report are preliminary and upon screen tender helper review may be revised to meet current compliance requirements. Cheryl Maldonado MD 10/26/2024 3:17:26 PM This report has been signed electronically.Cheryl Maldonado MD Number of Addenda: 0 Note Initiated On: 10/26/2024 2:40 PM Scope In: Scope Out: Endoscopy Department at [facility] - [address] [place] [id number] Procedure Note Cheryl Maldonado MD - 10/26/2024 [facility] GI Patient Name: Shira Sasmon Procedure Date: 10/26/2024 2:40 PM Date of [...] not prolapse). Procedure Code(s): --- Professional --- 96088, Colonoscopy, flexible; with removal of tumor(s), polyp(s), or other lesion(s) by snare technique Diagnosis Code(s): --- Professional --- Z86.010, Personal history of colonic polyps D12.2, Benign neoplasm of ascending colon D12.3, Benign neoplasm of transverse colon (hepatic flexure or splenic flexure) D12.4, Benign neoplasm of descending colon CPT copyright 2020 [employer]. All rights reserved. The codes documented in this report are preliminary and upon screen tender helper reviewmay be revised to meet current compliance requirements. Cheryl Maldonado MD 10/26/2024 3:17:26 PM This report has been signed electronically.Cheryl Maldonado MD Number of Addenda: 0 Note Initiated On: 10/26/2024 2:40 PM Scope In: Scope Out: Endoscopy Department at [facility] - [address] [place] [phone] IMPRESSION: - The examined portion of the [...] Result * Annual BMP Blood Test (11/17/2015) Annual BMP Blood Test Abstracted Result [facility] Historical Provider HEALTH MAINTENANCE Final Result * (ABNORMAL) Lipid panel (11/17/2015) Pathologist [facility] LDL/HDL Ratio 3 0 - 4 Triglycerides 155(A) 0 - 150 mg/dL Cholesterol 145 0 - 200 mg/dL HDL 51 >=40 mg/dL LDL Cholesterol 63 0 - 100 mg/dL Blood Venous blood specimen / Unknown Result [facility] Historical Provider LAB BLOOD ORDERABLES Apurva l Result * Pap Smear (11/12/2013) Pathologist [facility] Pap smear No Interpretation , Abstracted Historical Provider HEALTH MAINTENANCE Final Result from Last 3 Months or Most Recently Relevant to Health Maintenance Insurance [employer] [employer] - [place] ([place]) Care Teams Vacuum Cleaner Repair Person Relationship Specialty Start Date End Date Ruben Guan MD [address] [place] [id number] PCP - General Internal Medicine 06/27/24
== END 2025-03-03 18:31 | disposition home or self-care (01) ==
LOC: HO.MRI 18:30
PROVIDERS: Visit Provider Neurological Surgery
DX: M54.16 Radiculopathy, lumbar region (principal)
CPT/HCPCS: 72148

== ENCOUNTER → 2025-03-03 18:30 | Outpatient (BNV) | payer BC, SELFPAY | PROVIDERS: Visit Provider Radiology Diagnostic Radiology | DX: M48.061 Spinal stenosis, lumbar region without neurogenic claudication (principal) | CPT/HCPCS: 72148 ==

== ENCOUNTER → 2025-03-04 15:43 | Outpatient (BNV) | payer BC, SELFPAY | PROVIDERS: Visit Provider Internal Medicine Cardiovascular Disease | DX: I51.7 Cardiomegaly (principal) | CPT/HCPCS: 93010 ==

== ENCOUNTER 2025-03-05 12:48 | Outpatient (AMB) | payer BC, SELFPAY ==
--- NOTE | 2025-03-05 12:48 | A.SPINEOV_ITS ---
Intake Visit Reasons: MRI follow up Intake Note: Ms. Samson is on the phone to F/u on the results to her MRI. Protocol Officer Required: No Allergies erythromycin base (ERYTHROMYCIN BASE) Allergy (Severe, Verified 03/05/25 12:49) ANAPHYLAXIS latex (LATEX) Allergy (Severe, Verified 03/05/25 12:49) BLISTERS-SEVERE levofloxacin (From Levaquin) Allergy (Severe, Verified 03/05/25 12:49) Hives honey (HONEY) Allergy (Intermediate, Verified 03/05/25 12:49) HIVES,NAUSEA,DYSPNEA oxycodone (OXYCODONE) Adverse Reaction (Intermediate, Verified 03/05/25 12:49) NAUSEA & VOMITING, itching ENVIRONMENTAL Allergy (Intermediate, Uncoded 03/04/25 14:33) SINUS PROBLEMS,VERTIGO MAPLE SYRUP Allergy (Intermediate, Uncoded 03/04/25 14:33) Anaphylaxis Assessment & Plan Assessment & Plan (1) Lumbar disc herniation: Code(s): M51.26 - Other intervertebral disc displacement, lumbar region Category: Medical Plan This is a telephone visit done from my office at [facility]. The patient has been having a few months of progressive worsening pain down her right leg which goes into her anterior thigh and stops at about her knee. She also has pain in her buttock. She thought it might be her hip, but over the last few months it has been progressively getting worse. The pain has intensified so much she can barely stand and walk. She was unable to come in for physical office visit today because of the amount of pain she is in. I reviewed her lumbar MRI which does just recently done here at [facility] and it shows postsurgical changes at L4-[address] Rizvi did laminectomy a few years back. There is also a large herniated disc on the right at L4-5 which appears to be in the lateral recess but also into the foramen on the right L4. I think the patient would benefit from a neurological exam to exclude any potential weakness, but superimposed with her myelopathy this may be difficult. I am going to review her films with Dr. Rizvi but I think in the end he is going to recommend surgery for the herniated disc given the amount of pain she is in and the fact that it has not resolved now for over 2 months. Once I have a chance to review everything with him I will get back to the patient. She is due for surgery next week on her neck so we can review with her that time as well. Total amount of time spent in this visit was 20 minutes in discussion of symptoms, lumbar MRI imaging results and subsequent plan of care Dario Rizvi MD,PhD [facility] Coding Level of Care Code Tele New Pt Level 3 (85592) Diagnoses Lumbar disc herniation M51.26
--- OUTSIDE RECORDS SUMMARY | 2025-03-05 13:57 | XMS_ITS | Clinical Summary ---
Author Organization [facility] Address [address] [place] [address] Care Team Providers Care Jig Boring Machine Set Up Operator Name Role Phone Zainab Tobin Primary Care [...] age to complete this topic Care Teams Jig Boring Machine Set Up Operator Relationship Specialty Start Date End Date Zainab Tobin PCP - General Internal Medicine 10/15/20
--- OUTSIDE RECORDS SUMMARY | 2025-03-05 13:57 | XMS_ITS | Clinical Summary ---
Author Organization [facility] [address] [place] [address] Address [address] [place], [place] Phone Care Team Providers Care Technical Administrator Name Role Phone Ruben Guan MD Primary Care Provider Allergies Active Allergy Reactions Criticality Noted Date [...] time each day. Med Name: balance of [employer]: 3 fruits and 3 vegetable capsules Active [...] Comments OTHER SURGICAL HISTORY 2014 Left PROCEDURE: MT ARTHRP ACETBLR/PROX FEM PROSTC AGRFT/ALGRFT PARTIAL HYSTERECTOMY 2001 PROCEDURE: MT SUPRACERVICAL ABDL HYSTER W/WO RMVL TUBE OVARY; COMMENT: prolapse CARPAL TUNNEL RELEASE Bilateral PROCEDURE: HISTORICAL CARPAL TUNNEL REL OTHER SURGICAL HISTORY 2012 Right PROCEDURE: MT EXC CYST/ABERRANT BREAST TISSUE OPEN 1/> LESION; COMMENT: beningn mass and ductectomy NOSE SURGERY PROCEDURE: MT UNLISTED PROCEDURE NOSE; COMMENT: sinoplasty OTHER SURGICAL HISTORY 11/12/13 PROCEDURE: OUTSIDE PAP SMEAR OTHER SURGICAL HISTORY PROCEDURE: ---- OTHER ----; COMMENT: inclusion cyst R neck COLONOSCOPY 10/29/08 PROCEDURE: HISTORICAL COLONOSCOPY OTHER SURGICAL HISTORY 11/2015 Right PROCEDURE: MT ARTHRP ACETBLR/PROX FEM PROSTC AGRFT/ALGRFT LUMBAR SPINE [...] Office Visit Gastroenterology - [address] [place] [id number] Leticia Steve PA [address] [place] [address] Health Maintenance Due Date Last Done Comments [...] Results * COLONOSCOPY Anesthesia - MAC; [facility] ENDOSCOPY (10/26/2024 3:16 PM EDT) Anatomical Region [...] pathology results. Narrative 10/26/2024 3:17 PM EDT [facility] GI Patient Name: Shira Samson Procedure Date: 10/26/2024 2:40 PM Date of : 1960 Age: 64 Gender: Female Note Status: Finalized Attending MD: Cheryl Maldonado MD, Procedure Date No Time: 10/26/2024 Procedure: Colonoscopy Indications: High risk colon cancer surveillance: Personal history of colonic polyps Providers: Cheryl Maldonado MD Referring MD: Cehryl Maldonado MD, Ruben Guan MD Medicines: Propofol [...] not prolapse). Procedure Code(s): --- Professional --- 64026, Colonoscopy, flexible; with removal of tumor(s), polyp(s), or other lesion(s) by snare technique Diagnosis Code(s): --- Professional --- Z86.010, Personal history of colonic polyps D12.2, Benign neoplasm of ascending colon D12.3, Benign neoplasm of transverse colon (hepatic flexure or splenic flexure) D12.4, Benign neoplasm of descending colon CPT copyright 2020 [employer]. All rights reserved. The codes documented in this report are preliminary and upon dish machine operator review may be revised to meet current compliance requirements. Cheryl Maldonado MD 10/26/2024 3:17:26 PM This report has been signed electronically.Cheryl Maldonado MD Number of Addenda: 0 Note Initiated On: 10/26/2024 2:40 PM Scope In: Scope Out: Endoscopy Department at [facility] - [address] [place] [phone] Procedure Note Cheryl Maldonado MD - 10/26/2024 [facility] GI Patient Name: Shira Samson Procedure [...] not prolapse). Procedure Code(s): --- Professional --- 98816, Colonoscopy, flexible; with removal of tumor(s), polyp(s), or other lesion(s) by snare technique Diagnosis Code(s): --- Professional --- Z86.010, Personal history of colonic polyps D12.2, Benign neoplasm of ascending colon D12.3, Benign neoplasm of transverse colon (hepatic flexure or splenic flexure) D12.4, Benign neoplasm of descending colon CPT copyright 2020 [employer]. All rights reserved. The codes documented in this report are preliminary and upon dish machine operator reviewmay be revised to meet current compliance requirements. Cheryl Maldonado MD 10/26/2024 3:17:26 PM This report has been signed electronically.Cheryl Maldonado MD Number of Addenda: 0 Note Initiated On: 10/26/2024 2:40 PM Scope In: Scope Out: Endoscopy Department at [facility] - [address] [place] [phone] IMPRESSION: - The examined portion of the [...] (11/17/2015) Annual BMP Blood Test Abstracted Result [facility] Historical Provider HEALTH MAINTENANCE Final Result * (ABNORMAL) Lipid panel (11/17/2015) Pathologist [facility] LDL/HDL Ratio 3 0 - 4 Triglycerides 155(A) 0 - 150 mg/dL Cholesterol 145 0 - 200 mg/dL HDL 51 >=40 mg/dL LDL Cholesterol 63 0 - 100 mg/dL Blood Venous blood specimen / Unknown Result [facility] Historical Provider LAB BLOOD ORDERABLES Apurva l Result * Pap Smear (11/12/2013) Pathologist [facility] Pap smear No Interpretation , Abstracted Historical Provider HEALTH MAINTENANCE Final Result from Last 3 Months or Most Recently Relevant to Health Maintenance Insurance [place] - [place] (ANTH) Care Teams Technical Administrator Relationship Specialty Start Date End Date Ruben Guan MD [address] [place] [id number] PCP - General Internal Medicine 06/27/24
== END 2025-03-05 13:28 | disposition home or self-care (01) ==
LOC: HO.HNS 12:48
PROVIDERS: Visit Provider Physician Assistant
DX: M51.26 Other intervertebral disc displacement, lumbar region (principal)
CPT/HCPCS: 99213

== ENCOUNTER → 2025-03-13 06:51 | Outpatient (BNV) | payer BC, SELFPAY | PROVIDERS: PCP Internal Medicine Hematology & Oncology; Visit Provider Physician Assistant | DX: R13.10 Dysphagia, unspecified (principal); E87.6 Hypokalemia; E83.42 Hypomagnesemia | CPT/HCPCS: 99232; 99499 ==

== ENCOUNTER → 2025-03-13 06:51 | Outpatient (BNV) | payer BC, SELFPAY | PROVIDERS: Visit Provider Neurological Surgery | DX: M50.01 Cervical disc disorder with myelopathy, high cervical region (principal) | CPT/HCPCS: 20936; 22551; 22845; 22853; 99024; G0180 ==

== ENCOUNTER → 2025-03-15 09:30 | Outpatient (BNV) | payer BC, SELFPAY | PROVIDERS: Visit Provider Radiology Diagnostic Radiology | DX: R13.10 Dysphagia, unspecified (principal) | CPT/HCPCS: 74230 ==

== ENCOUNTER 2025-03-15 12:15 | Inpatient (IN) | payer BC, SELFPAY ==
--- OUTSIDE RECORDS SUMMARY | 2025-02-20 12:49 | XMS_ITS | Clinical Summary ---
Author Organization [facility] Address [address] [place] [address] Care Team Providers Care Nylon Hot Wire Cutter Name Role Phone Zainab Tobin Primary Care [...] age to complete this topic Care Teams Nylon Hot Wire Cutter Relationship Specialty Start Date End Date Zainab Tobin PCP - General Internal Medicine 10/15/20
--- OUTSIDE RECORDS SUMMARY | 2025-02-20 12:49 | XMS_ITS | Encounter Summary ---
Author Organization [facility] Address [address] [place] [address] Care Team Providers Care Software Security Consultant Name Role Phone Hugo Guan MD Primary Care Provider [phone] Reason for Visit * Reason Onset Date Comments Med Refill 10/29/2024 Encounter Details Date Type Department Care Team (Late st Contact Info) Description 10/29/2024 Telephone Gastroenterology - [address] [facility] [address] [place] [id number] Ness Casanova [place] Med Refill Social History Tobacco Use Types Packs/Day Years [...] PM EDT documented as of this encounter Ordered Prescriptions Prescription Sig Dispense Quantity Refills Last Filled Start Date End Date linaCLOtide (Linzess) 145 mcg capsuleIndications :Constipation, unspecified constipation type Take 1 capsule (145 mcg total) by mouth 1 (one) time each day. 30 each 2 10/29/2024 documented in this encounter Progress Notes * Sienna Williamson - 02/19/2025 11:58 AM EDT ALLYN : 08/22/2024 NOV : 03/13/2025 Medication : Linzess Dose : 290 mg day supply : 90 Prescriber : [facility] : On file Is patient out of medication? : Yes PLEASE NOTE MED REFILLS CAN TAKE UP TO 72 HOURS TO FILL Needs PA. documented in this encounter Plan of Treatment Upcoming Encounters Date Type Department Care Team (Late st Contact Info) Description 03/13/2025 3:30 PM EDT Office Visit Gastroenterology - [address] [facility] [address] [place] [phone] Leticia Steve PA [address] [facility] [address] [place] [phone] documented as of this encounter Visit Diagnoses Diagnosis Constipation, unspecified constipation type- Primary documented in this encounter Care Teams Software Security Consultant Relationship Specialty Start Date End Date Hugo Guan MD [address] [place] [address] PCP - General Internal Medicine 06/27/24 documented as of this encounter
--- NOTE | 2025-03-04 | ECG_ITS ---
Test Reason : PREOP Blood Pressure : */* mmHG Vent. Rate : 79 BPM Atrial Rate : 79 BPM P-R Int : 128 ms QRS Dur : 84 ms QT Int : 376 ms P-R-T Axes : 80 69 -28 degrees QTcB Int : 431 ms Normal sinus rhythm Biatrial enlargement Nonspecific ST abnormality Abnormal QRS-T angle, consider primary T wave abnormality Abnormal ECG When compared with ECG of 11-Jun-2016 11:39, Inverted T waves have replaced nonspecific T wave abnormality in Inferior leads Referred By: Odette Alfonso Electronically Signed By: CAMERON SOSA MD
[2025-03-04 14:34] VITALS: BP 170/74; PULSE 73; RESP 16; O2SAT 99; BMI 30.2
--- NOTE | 2025-03-04 15:09 | HO.ANESPROP2 ---
Documented by User: Odette Alfonso NP 03/11/25 10:07 HPI - Anesthesia Eval Consult details Narrative: 65 yr old female for C2-3 ACDF w/Plate and Osteophyte Resection, seen in [facility] Medically optimized by [facility] preop clinic 03/06/25 No recent illness No CP; SOB is rare since quitting smoking On medrol dosepak at 03/04/25 PAT visit. 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 Feb 2025 Asthma: on Singulair, recently started on Breo, has not used albuterol since December 2024, managed by Allergy/Immunology ?ataxic gait per pt: MRI lumbar spine done at [facility] 03/03/25 Chronic vertigo: on meclizine 4 times per day prescribed by ENT (Jonathan) [facility] Active Problems Active Problems: All Active Problems Acute lumbar radiculopathy (Acute) Numbness and tingling of left side of face (Acute) Cervical myelopathy (Acute) Left hip pain (Acute) Past Medical History Medical History (Updated 03/05/25 @ 13:18 by BRUNILDA Jackson) DISH (diffuse idiopathic skeletal hyperostosis) Arthritis Walker as ambulation aid Numbness Constipation Irritable bowel syndrome with constipation Immune disorder Vertigo Asthma Hx of smoking HTN (hypertension) Family History Family history of problems with anesthesia: No Surgical History Surgical History (Updated 03/04/25 @ 14:21 by Nidia Izaguirre, MIAN) History of carpal tunnel release of both wrists History of sinus surgery Hx of tonsillectomy (~1966) Hx of colonoscopy Hx of lumbosacral spine surgery (~2019) History of partial hysterectomy (~2001) History of breast surgery (~2002) History of total left hip replacement History of total right hip replacement (11/2015) History of Problems with Anesthesia: No Social History Social History (Updated 03/04/25 @ 14:52 by Nidia Izaguirre, MIAN) Household Members: Family Housing: House Are you a primary child day care provider to a significant other at home: No Do you presently have visiting nurse or other home services: No Patient Tobacco Use Status: Former Tobacco user Tobacco use type: Cigarette Smoked in Last 30 Days: Yes Use of substances other than those prescribed or required for medical reasons: No Have you been hit, kicked, punched, or otherwise hurt by someone within the past year? If so, by whom?: No Are you DNR?: No Advance Directives: No Advance Directives Information Provided: Yes Advance Directives on File: No Meds Allergies Allergy/AdvReac Type Severity Reaction Status Date / Time erythromycin base Allergy Severe ANAPHYLAXIS Verified 03/05/25 12:49 (ERYTHROMYCIN BASE) latex (LATEX) Allergy Severe BLISTERS-SE Verified 03/05/25 12:49 UMAIR levofloxacin (From Levaquin) Allergy Severe Hives Verified 03/05/25 12:49 honey (HONEY) Allergy Intermediate HIVES,NAUSE Verified 03/05/25 12:49 A,DYSPNEA oxycodone (OXYCODONE) AdvReac Intermediate NAUSEA & Verified 03/05/25 12:49 VOMITING, itching ENVIRONMENTAL Allergy Intermediate SINUS Uncoded 03/04/25 14:33 PROBLEMS,VERTIGO MAPLE SYRUP Allergy Intermediate Anaphylaxis Uncoded 03/04/25 14:33 Home Medications ?Medication ?Instructions ?Recorded ?Confirmed ?Last Taken ?Type Vitamin D3 03/04/25 03/04/25 03/12/25 History acetaminophen 650 mg 1,950 mg PO Q8H 03/04/25 03/13/25 03/12/25 History tablet,extended release beclomethasone dipropionate 80 2 spray intranasal DAILY 03/04/25 03/13/25 03/12/25 History mcg/actuation nasal HFA inhaler (QNASL) desloratadine-pseudoephedrine ER 1 tab PO Q12H PRN Allergy Symptoms 03/04/25 03/13/25 03/12/25 History 2.5 mg-120 mg tab,ext.release mp 12hr (Clarinex-D 12 HOUR) fluticasone furoate 100 1 ea inhalation DAILY 03/04/25 03/13/25 03/12/25 History mcg-vilanterol 25 mcg/dose inhalation powder (Breo Ellipta) gabapentin 400 mg capsule 400 mg PO TID 03/04/25 03/13/25 03/13/25 History hydrochlorothiazide 25 mg tablet 25 mg PO DAILY 03/04/25 03/13/25 03/12/25 History magnesium citrate 03/04/25 Unknown History meclizine 25 mg tablet 25 mg PO QID PRN Vertigo 03/04/25 03/13/25 03/13/25 History montelukast 10 mg tablet 10 mg PO BEDTIME 03/04/25 03/13/25 03/12/25 History (Singulair) nystatin 500,000 unit tablet 1,500,000 unit PO BID 03/04/25 03/13/25 03/12/25 History sennosides 8.6 mg-docusate sodium 15 tab-cap PO DAILY 03/04/25 03/13/25 03/12/25 History 50 mg capsule (Senna Plus) methylprednisolone 4 mg tablets in 4 mg PO DAILY PRN Shortness Of 03/13/25 03/13/25 Unknown History a dose pack Breath Exam Height,Weight and Vital Signs: Height 5 ft 4.57 in Weight 81.193 kg Last Vital Signs Pulse 73 03/04/25 14:34 Resp 16 03/04/25 14:34 BP 170/74 H 03/04/25 14:34 Pulse Ox 99 03/04/25 14:34 O2 Del Method Room Air 03/04/25 14:34 Narrative Narrative: EKG 03/04/25 Vent. Rate : 79 BPM Atrial Rate : 79 BPM P-R Int : 128 ms QRS Dur : 84 ms QT Int : 376 ms P-R-T Axes : 80 69 -28 degrees QTcB Int : 431 ms Normal sinus rhythm Biatrial enlargement Nonspecific ST abnormality Abnormal QRS-T angle, consider primary T wave abnormality Abnormal ECG When compared with ECG of 11-Jun-2016 11:39, Inverted T waves have replaced nonspecific T wave abnormality in Inferior leads *Per [facility] EKG, she had non-specific T changes present in 2021 Airway Mallampati Class: II TM Dist: >3cm Neck ROM: Full Partial: Upper and Lower Heart: RRR Lungs: CTAB with scant inspiratory wheezing Assessment and Plan Final Anesthetic Review Family History of Problems with Anesthesia: No History of Problems with Anesthesia: No Documented by User: Angela Lujan MD 03/13/25 08:11 [facility] Past Medical History Medical History (Updated 03/05/25 @ 13:18 by BRUNILDA Jackson) DISH (diffuse idiopathic skeletal hyperostosis) Arthritis Walker as ambulation aid Numbness Constipation Irritable bowel syndrome with constipation Immune disorder Vertigo Asthma Hx of smoking HTN (hypertension) Surgical History Surgical History (Updated 03/04/25 @ 14:21 by Nidia Izaguirre, RN) History of carpal tunnel release of both wrists History of sinus surgery Hx of tonsillectomy (~1966) Hx of colonoscopy Hx of lumbosacral spine surgery (~2019) History of partial hysterectomy (~2001) History of breast surgery (~2002) History of total left hip replacement History of total right hip replacement (11/2015) Social History Social History (Updated 03/04/25 @ 14:52 by Nidia Izaguirre, MIAN) Household Members: Family Housing: House Are you a primary child day care provider to a significant other at home: No Do you presently have visiting nurse or other home services: No Patient Tobacco Use Status: Former Tobacco user Tobacco use type: Cigarette Smoked in Last 30 Days: Yes Use of substances other than those prescribed or required for medical reasons: No Have you been hit, kicked, punched, or otherwise hurt by someone within the past year? If so, by whom?: No Are you DNR?: No Advance Directives: No Advance Directives Information Provided: Yes Advance Directives on File: No Meds Allergies Allergy/AdvReac Type Severity Reaction Status Date / Time erythromycin base Allergy Severe ANAPHYLAXIS Verified 03/05/25 12:49 (ERYTHROMYCIN BASE) latex (LATEX) Allergy Severe BLISTERS-SE Verified 03/05/25 12:49 UMAIR levofloxacin (From Levaquin) Allergy Severe Hives Verified 03/05/25 12:49 honey (HONEY) Allergy Intermediate HIVES,NAUSE Verified 03/05/25 12:49 A,DYSPNEA oxycodone (OXYCODONE) AdvReac Intermediate NAUSEA & Verified 03/05/25 12:49 VOMITING, itching ENVIRONMENTAL Allergy Intermediate SINUS Uncoded 03/04/25 14:33 PROBLEMS,VERTIGO MAPLE SYRUP Allergy Intermediate Anaphylaxis Uncoded 03/04/25 14:33 Home Medications ?Medication ?Instructions ?Recorded ?Confirmed ?Last Taken ?Type Vitamin D3 03/04/25 03/04/25 03/12/25 History acetaminophen 650 mg 1,950 mg PO Q8H 03/04/25 03/13/25 03/12/25 History tablet,extended release beclomethasone dipropionate 80 2 spray intranasal DAILY 03/04/25 03/13/25 03/12/25 History mcg/actuation nasal HFA inhaler (QNASL) desloratadine-pseudoephedrine ER 1 tab PO Q12H PRN Allergy Symptoms 03/04/25 03/13/25 03/12/25 History 2.5 mg-120 mg tab,ext.release mp 12hr (Clarinex-D 12 HOUR) fluticasone furoate 100 1 ea inhalation DAILY 03/04/25 03/13/25 03/12/25 History mcg-vilanterol 25 mcg/dose inhalation powder (Breo Ellipta) gabapentin 400 mg capsule 400 mg PO TID 03/04/25 03/13/25 03/13/25 History hydrochlorothiazide 25 mg tablet 25 mg PO DAILY 03/04/25 03/13/25 03/12/25 History magnesium citrate 03/04/25 Unknown History meclizine 25 mg tablet 25 mg PO QID PRN Vertigo 03/04/25 03/13/25 03/13/25 History montelukast 10 mg tablet 10 mg PO BEDTIME 03/04/25 03/13/25 03/12/25 History (Singulair) nystatin 500,000 unit tablet 1,500,000 unit PO BID 03/04/25 03/13/25 03/12/25 History sennosides 8.6 mg-docusate sodium 15 tab-cap PO DAILY 03/04/25 03/13/25 03/12/25 History 50 mg capsule (Senna Plus) methylprednisolone 4 mg tablets in 4 mg PO DAILY PRN Shortness Of 03/13/25 03/13/25 Unknown History a dose pack Breath Assessment and Plan Assessment Anesthesia Assessment: Anesthesia Plan Discussed and Chart Reviewed Final Anesthetic Review NPO: Yes ASA Class: III Final Preanesthetic Review: No Changes in Pt Med Stat, Meds/Allgs Chart Reviewed and Consent Obtained/Reviewed Patient Risk: Intermediate Procedure Risk: Intermediate Anesthetic Plan Anesthetic Plan: GA Disposition: Standard PACU
[2025-03-04 17:42] LABS: Hematocrit 41.4 % (37.0-47.0); Hemoglobin 14.5 g/dl (12.0-16.0); Mean Corpuscular HGB Conc 35.0 g/dl (31.0-35.0); Mean Corpuscular Hemoglobin 32.5 pg (27.0-33.0); Mean Corpuscular Volume 92.8 fL (80.0-98.0); NRBC Abs Auto 0.000 X10*3/uL (0.0-0.012); NRBC Pct Auto 0.0 /100WBC (0.0-0.2); Platelet Count 291 X10*3/uL (160-400); Red Blood Count 4.46 X10*6/uL (4.20-5.50); White Blood Count 9.9 X10*3/uL (4.8-10.8)
[2025-03-04 17:52] LABS: Anion Gap 14 (12-20); Blood Urea Nitrogen 13 mg/dL (9-16); Calcium 9.9 mg/dL (8.4-10.2); Carbon Dioxide 27 mmol/L (22-29); Chloride 99 mmol/L (96-108); Creatinine Clr Calc Pharmacy 92.7; Estimated Glomerular Filt Rate > 60; Potassium 4.7 mmol/L (3.3-5.1); Sodium 135 mmol/L (135-145)
[2025-03-13] VITALS (16 sets, daily range): BP systolic 112–172; BP diastolic 69–107; PULSE 79–99; RESP 10–21; TEMP 36.1; O2SAT 94–100; BMI 31.3
--- NOTE | 2025-03-13 06:59 | MHC.SHP ---
Pre-Procedural Eval Section A - 24 Hr Update-Section A only Date of Service: 03/13/25 Section B - Complete if H&P > 30 days Chief Complaint: Disease of spinal cord, unspecified Allergies: Allergies Allergy/AdvReac Type Severity Reaction Status Date / Time erythromycin base Allergy Severe ANAPHYLAXIS Verified 03/05/25 12:49 (ERYTHROMYCIN BASE) latex (LATEX) Allergy Severe BLISTERS-SE Verified 03/05/25 12:49 UMAIR levofloxacin (From Levaquin) Allergy Severe Hives Verified 03/05/25 12:49 honey (HONEY) Allergy Intermediate HIVES,NAUSE Verified 03/05/25 12:49 A,DYSPNEA oxycodone (OXYCODONE) AdvReac Intermediate NAUSEA & Verified 03/05/25 12:49 VOMITING, itching ENVIRONMENTAL Allergy Intermediate SINUS Uncoded 03/04/25 14:33 PROBLEMS,VERTIGO MAPLE SYRUP Allergy Intermediate Anaphylaxis Uncoded 03/04/25 14:33 Review of Systems Sugical H&P ROS: Negative: Constitution, Cardiovascular, Respiratory, Neurological, Psychiatric, Hem-Onc, Allergic/Immunologic, Gastrointestinal, Genitourinary, Musculoskeletal, Integumentary, Endocrine and Eyes/Ears/Nose/Throat Exam Surgical H&P Exam: Not Evaluated: HEENT, Not Evaluated: Heart, Not Evaluated: Lungs, Not Evaluated: Extremities, Not Evaluated: Abdomen, Not Evaluated: Skin and Not Evaluated: Neurological Exam Comment: The patient is awake, alert, no acute distress. Proposed surgical incision site is clean, dry, with no signs of recent trauma. Plan Diagnosis/Plan: Unchanged I have reviewed the history and physical and performed a pertinent physical examination on my patient. No changes have occurred unless specified. Plan remains the same, C2-3 ACDF with anterior plate Time Spent With Patient Time: Total time managing care of this patient today __7__ minutes.
[2025-03-13] MEDS: Lactated Ringers 1,000 ML 100 ML IVCONT (07:48)
[2025-03-13] MEDS: Albuterol Sulfate (0.083%) 2.5 MG/3 ML VIAL.NEB INHALE (07:57)
--- NOTE | 2025-03-13 12:57 | P.OP_ITS ---
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 I have explained the nature, purpose and benefits of the operation. I have discussed the risks and benefit of the operation including possible complications or adverse events with patient/family. Alternative(s) were discussed with the patient with their relative benefits and risks as well as the consequences of not accepting the operation were included in obtaining consent. Surgeon: DEION LYNN MD, PHD Procedure Assisted By: BRUNILDA Grove Description of Procedure: This patient is a 62-year-old female that presented with progressive difficulty using her hands, quadriparesis and difficulty ambulating due to severe spinal cord compression C2-C3. She was offered an anterior diskectomy and fusion of t he level. The procedure complications were explained. The patient was consented. The patient was brought to the operating room and endotracheally intubated. The patient was put in supine position with slight extension of the neck. Prep and drape was done followed by timeout. A mid cervical incision was made followed by opening of the platysma. The prevertebral fascia was reached following the natural planes while the physician criminal legal assistant provided manual retraction. The prevertebral fascia was opened to expose the disc space. A spinal needle was placed in the C2-C3 disk space to confirm the correct level with xray. A large anterior osteophyte was resected from the body of C3 in order to place the pain and in anticipation of the anterior plate. The longus colli muscles were released bilaterally and a self retaining retractor was inserted. Two [place] pins were placed in the C2 and C3 vertebral bodies and distraction was give over the interspace. The discectomy was completed toward the posterior annulus of the disc. The microscope was brought in. The remainder of the discectomy was completed. The posterior ligament was opened and resected to expose the underlying dura. It was hard to create a plane between the ligament and the dura but eventually a good removal of the ligament was done and the spinal cord was decompressed. Osteophytes were resected from the body of C2 and C3 and saved for autograft. The endplates were prepared after which a 7 mm cage with 7 degree lordosis filled with autograft was inserted into the disc space. This created a reduction of the anterolisthesis and a correction of the C2 kyphosis. An anterior plate was locked down with for x 14 mm screws as anterior instrumentation. Final x-rays in AP and lateral projection showed a satisfactory position of the implant and anterior instrumentation. The physician criminal legal assistant took over. The [place] pin was removed. Hemostasis was done. He closed the incision in 2 layers with a 3-0 Vicryl. Steri-Strips used to approximate incision. An OpSite with Tegaderm was used to cover the incision. All sponge and needle counts were correct. Patient was extubated and transported in stable is to recovery room. Anesthesia: General Estimated Blood Loss (ml): 25 Duration of Surgery: 2 hours 20 minutes Postoperative Plan: Discharge home Complications: None
--- NOTE | 2025-03-13 13:01 | P.DS_ITS ---
DS: Providers Provider Primary care physician: Unknown Physician Physical Exam Vital Signs: Vital Signs: Last Vital Signs Temp 97.0 F 03/13/25 07:24 Pulse 83 03/13/25 07:57 Resp 16 03/13/25 07:57 BP 132/89 03/13/25 07:24 Pulse Ox 99 03/13/25 07:24 O2 Del Method Room Air 03/13/25 07:24 BMI result Body Mass Index 30.2 Discharge Plan Discharge Patient Disposition: Home, Self-Care Referrals: Physician,Unknown J [Primary Care Provider, Medical] - 1 Week Discharge Medications: New hydrocodone-acetaminophen 10-325 mg tablet 1 tab PO Q4-6H PRN (Reason: pain (scale score 7-10)) Qty: 20 0RF Rx Instructions: Partial Fill upon patient request. Continued amoxicillin 500 mg tablet 500 mg PO ONCE 1 Days Qty: 4 3RF Rx Instructions: Take 4 tabs 1 hours prior to dental procedure omeprazole 20 mg capsule,delayed release(DR/EC) 20 mg PO DAILY Qty: 10 0RF gabapentin 400 mg Capsule 400 mg PO TID meclizine 25 mg Tablet 25 mg PO QID PRN (Reason: Vertigo) hydrochlorothiazide 25 mg Tablet 25 mg PO DAILY Clarinex-D 12 HOUR 2.5-120 mg Tablet, Er Multiphase 12 Hr 1 tab PO Q12H PRN (Reason: Allergy Symptoms) Senna Plus 8.6-50 mg Capsule 15 tab-cap PO DAILY Vitamin D3 magnesium citrate acetaminophen 650 mg Tablet Extended Release 1,950 mg PO Q8H montelukast [Singulair] 10 mg Tablet 10 mg PO BEDTIME nystatin 500,000 unit tablet 1,500,000 unit PO BID QNASL 80 mcg/actuation HFA aerosol inhaler 2 spray intranasal DAILY fluticasone furoate-vilanterol [Breo Ellipta] 100-25 mcg/dose blister with device 1 ea INHALATION DAILY Held methylprednisolone 4 mg tablets,dose pack 4 mg PO DAILY PRN (Reason: Shortness Of Breath) Hold Instructions: Resume on 03/13/25. Diet: Advance to usual diet Activity on Discharge: As tolerated Activity Restrictions/Additional Instructions: After your spinal surgery we ask you to observe the following restrictions/guidelines: Activity: It is normal to feel some discomfort as you increase your activity, but that will improve with time. We ask you avoid heavy lifting or acitivities that cause pain. As a general rule, 8lbs is a safe limit for lifting right after surgery. Walk as much as you feel comfortable but not to exhaustion. You will feel extra tired the first few days after surgery. Stay well hydrated. It is OK to walk up and down stairs You may return to driving when you are off narcotics (such as vicodin, oxycodone, dilaudid, etc), and you are back to normal functional capacity. If you have any concerns please check with office before driving. Return to work is specific to each patient and each surgery, so please speak with your doctor/PA at first follow up. Please bring paperwork such as FMLA at that time if you need it filled out. Medications: We recommend you take 1,000mg Tylenol every 8 hours for the first few weeks after surgery, if you do not have any liver issues and can tolerate this medication. Do not exceed 4,000mg daily. We will give you a short supply of narcotics after surgery (usually one weeks worth). If you need more please call the office but do not use more than prescribed. You will need to give our office 48 hours notice if you need narcotics refilled and we do not fill narcotics on weekends or evenings. If you are on a narcotic, it is a good idea to take a stool softener such as colace or senna to avoid constipation If you take blood thinner such as aspirin, Plavix, Coumadin, Effient, Eliquis etc for conditions such as Afib, DVT, Pulmonary embolus, coronary disease, stents etc please speak with your surgeon about specific details as to when you can resume these medications. You can resume NSAIDs on post op day 1 (eg: Motrin, Naproxen, etc). Follow up: Please call the office, , after surgery to arrange a 3 week follow up for wound check. Wound Care: You may remove your dressing on the first day after surgery. ?You may ?leave open to air. Please do not remove the steri strips underneath. they will fall off on their own in one week. IT IS NORMAL FOR THE WOUND TO OOZE OR BE BLOODY FOR A FEW DAYS AFTER SURGERY. ?IF THIS HAPPENS JUST PLACE NEW DRESSING OVER IT TO AVOID STAINING CLOTHES. You may shower on post op day # 1 We ask that you do not let the water soak the wound. If it does get wet, just towel dry lightly. Please do not scrub your incision or place any type of chemical/ointment on the wound. No tub baths, pools or jacuzzis for one month. If you have any leaking or redness from your wound, or fevers, please call the office. Print Language: Gabonese
--- NOTE | 2025-03-13 18:42 | PC.NURSE ---
Dr. Rizvi notified via tiger text at 1842 pt continues to have difficulties swallowing as previously reported from PACU nurse. Pt had one bite of ice cream with dinner and reports trouble swallowing and feeling as though it is stuck in her throat. This RN advised Pt to be NPO for now until MD instructs otherwise. Pt is able to clear her airway and has clear speech, no S&S of respiratory distress. No new orders from provider at this time.
[2025-03-14] VITALS (8 sets, daily range): BP systolic 130–167; BP diastolic 60–88; PULSE 90–106; RESP 16–18; TEMP 36–36.6; O2SAT 96–99
[2025-03-14] MEDS: Fluticasone/Vilanterol 100/25 BLST.W.DEV 1 PUFF INHALE (07:47)
--- NOTE | 2025-03-14 07:55 | HO.POSTANES ---
Post Anesthesia Evaluation Post Anesthesia Evaluation Date of Service: 03/14/25 Vital Signs: Vital Signs Temp Pulse Resp BP Pulse Ox O2 Del Method 03/14/25 07:47 98 16 03/14/25 07:34 97.0 F 100 18 131/74 96 Room Air 03/14/25 03:42 96.8 F 98 18 139/60 97 Room Air Anesthesia: General Mental Status: Awake Pain Control: Satisfactory Nausea/Vomiting: None Hydration: Adequate Anesthesia-Related Issues: No Anes. Related Issues
--- NOTE | 2025-03-14 09:22 | HO.NEUROPN_ITS ---
Neurosurgery Operative Note Date of Service: 03/14/25 Narrative: POD: 1 Procedure: C2-3 ACDF with anterior plate Annabella is a pleasant 65-year-old female who underwent C2-3 ACDF with anterior plating yesterday. She was kept in the hospital overnight for continued evaluation after outpatient surgery due to difficulties swallowing. She was started on 4 mg of Decadron yesterday, and transition to 2 mg t.i.d. today. She reports that her swallowing difficulties have persisted through the night into this morning. She has been unable to tolerate more than small sips of water. She is seen this morning sitting in the bedside chair, utilizing a suction device as needed to clear secretions. She has very minimal hoarseness, however does clear secretions multiple times while talking with this public relations writer, and coughs 1-2 times between sentences. She raised concerns regarding uvula swelling, which she reports nursing staff made note of yesterday / today. She has been OOB to use the bathroom. Afebrile, vital signs stable. The patient has about 3/5 strength with right sided triceps testing. The rest of her upper extremity strength is 5/5. She reports hypoesthesia of her bilateral hands and shoulders. Anterior neck dressing has some staining without signs of hematoma. No active sanguineous drainage. Area is dry. Uvula is notable edematous with what appears to be 2 small lacerations. Uvula remains midline and despite edema the airway remains patent. Plan: Flory 65-year-old female who underwent C2-3 ACDF with anterior plating yesterday. Kept in hospital for continued monitoring and evaluation given swallowing trouble. I will place a swallow evaluation consult to speech, and order PT eval for dispo recommendations / possible at home PT/OT. The patient reports living at home with a who has dementia. He is unable to care for her. She raised concerns re: self care at home. She would feel better about D/C home if her swallow evaluation shows reasonable function. We will keep her on Decadron for the time being & re-evaluate her this afternoon. I also reached out to anesthesia team to evaluate the patients uvula. This plan was discussed with the attending neurosurgeon Dr. Rizvi. We will be by later today to evaluate the patient again after our clinic / surgical cases are complete. Leobardo Rizvi MD,PhD [facility]
--- NOTE | 2025-03-14 13:34 | MHC.CM.PN ---
Addendum entered by Sumi Das RN 03/14/25 14:23: AWAITING BARIUM SWALLOW. Original Note: PATIENT LIVES IN A HOME W/ AND ADULT SON AMBULATES W/ A WALKER. AND DTR ASSIST W/ ADL'S PRN (PAIN/WEAKNESS). PCP DR BRAGA @ [facility] COMPLETED HCP NAMING [facility] 1) SPOUSE JEANNIE AND 2) SON BETINA DP: PT REC AR. PATIENT DECLINES AR AND STR. PREFERS HOME W/ [facility] - WILL NEED PT/OT/AIRFREIGHT OPERATIONS AGENT. FAMILY TRANSPORT. CM WILL CONTINUE TO FOLLOW.
--- NOTE | 2025-03-14 14:37 | MHC.SL.SWA ---
Speech Pathologist Impression: Risk of Aspiration Due to: Moderate to severe pharyngeal phase dysphagia Dysphasia Diet Status: Liquid Consistency and Strategies for Safe Swallow: Liquid Intake Recommendation: NPO Liquid Intake Strategies: Solid Food Consistency: Dietary Recommendations: NPO Additional Modifications to Solid Foods: Oral Medication Intake: NPO Please contact the pharmacy regarding appropriate crushable or liquid drug formulations that are available whenever modified delivery is recommended. Compensatory Strategies and Precautions to be Taken for Safe Swallow: Supervision While Eating and Drinking for Safe Swallow: Foods to Avoid: Swallowing Recommended Treatments: Recommendation for Speech: Inpatient Speech Therapy Modified Barium Swallow Study - Inpatient Comment: Patient presents with moderate to severe pharyngeal phase dysphagia. Patient having difficulty with secretions, indication of pharyngeal residual, coughing and need to suction post swallow of trace amounts of liquid/puree given. Recommend continue NPO. Recommend MBSS/swallow study to further visualize swallow mechanism/DX needs. Recommend NPO. Provide patient with frequent oral care, access to suctioning. TARP REPAIRER working with Radiology to provide study 03/15/25. Patient may need medical management of nutrition post study, and should not be discharged without access to a safe route for nutritional source. DIANDRA WORLEY notified of recommendation by secure text, RN in person. Frequency/Duration: Date Range for Service Req: Timeline to reassess: Lithographic Camera Operator Clinican/Clinical Fellow: No Supervisory Statement: I have reviewed and agree with the student/clinical fellow's documentation: N/A Speech Language Pathologist: Evon Adhikari M.A., [facility]-TARP REPAIRER
--- NOTE | 2025-03-14 18:57 | MHC.SLORD ---
Speech Language Pathology Order Status: MBSS evaluation with Speech scheduled with radiology for 03/15/25 at 9:30 a.m.
--- NOTE | ~2025-03-15 | FL_ITS ---
EXAMINATION: Modified Barium Swallow CLINICAL INFORMATION: Dysphagia. COMPARISON: 03/15/2025. TECHNIQUE: Modified barium swallow was performed under lateral fluoroscopy with patient in standing position. Barium mixed with solids and liquids of different consistencies was administered by the speech pathologist. Examination was recorded in the fluoroscopy suite. FINDINGS: Patient was given multiple consistencies. There was persistent early spillover and vallecular and piriform sinus pooling of residues. There was persistent laryngeal penetration without subglottic aspiration on multiple consistencies. This appeared significantly improved from the previous examination of 03/15/2025. FLUOROSCOPY TIME: 2 minutes, 19 seconds. Number of Spot Images: N/A DOSE AREA PRODUCT: 1094 uGy-m2 (microgray-meter squared) FL/FL Modified Barium Swallow IMPRESSION: Persistent laryngeal penetration without definite subglottic aspiration. Findings appear significantly improved when compared with 03/15/2025. Please refer to the full speech therapy report to follow for further detail. Electronically signed by: Josue Kowalski MD 03/19/2025 12:28 PM EDT
--- NOTE | ~2025-03-15 | FL_ITS ---
EXAMINATION: FL GUIDANCE ONLY HISTORY: C2-3 ACDF W/ PLATE COMPARISON: Correlation is made with plain films of the cervical spine dated 02/13/2025. TECHNIQUE: Fluoroscopy time: 26.2 seconds. Cumulative Dose: 2.5748 mGy. DAP: 0.7928 mGym2 Images: 2. FINDINGS: Fluoroscopic spot films of the cervical spine imaged in anterior cervical disc fusion at the C2-3 level. FL/FL guidance in OR IMPRESSION: Fluoroscopy during procedure. Please see procedure report for additional information. Electronically signed by: Alexx Barnes MD 03/13/2025 01:06 PM EDT
--- NOTE | ~2025-03-15 | IR_ITS ---
CLINICAL HISTORY: TPN PROCEDURES: 1. Real-time ultrasound-guided access into the left basilic vein after documentation of selected vessel patency, and permanent imaging storing in the patient record. 2. Placement of a 5 fr 44 cm, single lumen power PICC CLINICIANS: Bobby Trevino NP MEDICATIONS: -Lidocaine 1% 5 mL SQ. -Antibiotics: None. Complications: None. Estimated blood loss: <5 ml Specimens: None. Contrast: None. Fluoroscopy time: 1.1 min Procedure note: The procedure, risks, benefits, and alternatives were carefully explained to the patient and written informed consent was obtained. The patient was placed supine on the fluoroscopy table. A timeout was performed. The left arm was prepped and draped in usual sterile fashion. Using ultrasound and fluoroscopic guidance, venous access was achieved into the basilic vein with a micropuncture set. A peel-away sheath was advanced over the wire. The 0.018 inch wire was advanced into the right atrium. A 5 fr, 44 cm, single lumen power PICC was advanced over the wire, with its tip in the the caval atrial junction. The wire was removed. The catheter was tested and secured with a StatLock dressing. A permanent ultrasound image and chest fluoroscopic image was saved to PACS. The patient was stable after the procedure and was transferred to the floor. FINDINGS: 1. Patent left basilic vein 2. Placement of a 5 fr 44 cm, single lumen power PICC IR/IR cvc insert peripheral IMPRESSION: Placement of a 5 fr 44 cm, single lumen power PICC PLAN: -The catheter may be used immediately. This procedure was performed by Bobby Trevino NP, and directly supervised by Dario Rowley M.D. Electronically signed by: Dario Rowley MD 03/26/2025 04:52 PM EDT
--- NOTE | ~2025-03-15 | FL_ITS ---
EXAMINATION: XR BARIUM SWALLOW CLINICAL INFORMATION: Status post recent cervical spine fusion. Difficulty swallowing. COMPARISON: None available. TECHNIQUE: Modified barium swallow was performed under lateral fluoroscopy with patient sitting and in presence of speech therapist. FINDINGS: Following oral administration of thin barium there is normal passage of bolus from the oral cavity through the pharynx into cervical esophagus with mild laryngeal penetration and aspiration. Following oral administration of thick barium there is yomaira laryngeal aspiration with immediate reflux of barium into the pharynx. Exam was discontinued due to aspiration FLUOROSCOPY TIME: 55 seconds DOSE AREA PRODUCT: 32.87 uGy-m2 (microgray-meter squared) FL/FL Modified Barium Swallow IMPRESSION: Laryngeal penetration and trace aspiration with thin barium. Yomaira aspiration with thick barium. Electronically signed by: Kip Canales MD 03/15/2025 11:28 AM EDT
[2025-03-15 03:57] VITALS: BP 162/74; PULSE 100; RESP 19; TEMP 36.6; O2SAT 94
[2025-03-15 07:29] VITALS: BP 157/79; PULSE 102; RESP 16; TEMP 36.8; O2SAT 94
[2025-03-15] MEDS: Fluticasone/Vilanterol 100/25 BLST.W.DEV 1 PUFF INHALE (07:51)
[2025-03-15 07:53] VITALS: PULSE 92; RESP 16
--- NOTE | 2025-03-15 08:42 | HO.NEURO.PN ---
Neurosurgery Operative Note Date of Service: 03/15/25 Narrative: Postop day 2. ACDF C2-3 Patient clinically reports her uvula feels less swollen, she is able to handle her secretions better this morning. She is pending a speech and swallow study at 09:00. Her hand still feel numb. She has been up walking around with the nursing staff, did stairs yesterday and cleared PT. she remains on steroids, tapering. She is voiding without issues. Afebrile, vital signs stable with the exception of pulse 102 this morning, systolic blood pressure slightly elevated Physical exam: Patient is awake alert oriented, she has good phonation and no signs of hoarseness. Strength reveals mild hand weakness but otherwise strength is full in bilateral upper and lower extremities. Neck dressing is clean and dry with no signs of hematoma, there some mild swelling underneath. Uvula shows signs of some mild erythema but no significant swelling. It is midline. Impression: Postop day 2. ACDF C2-3, for cervical myelopathy. Remains in the hospital for issues with swallowing, was having trouble yesterday holding secretions and taking thin liquids. Appears to be better today, she has not had any issues feeling like she is aspirating on her postnasal drip or her saliva. Her uvula is mildly swollen and red. She is due to undergo swallow study but I anticipate she will pass. She may have to have some modifications to the thickness of her fluids until the some of the swelling comes down. This is well known in surgery at the C2-3 level that can be some problems with swallowing after surgery but generally they will recover on their own. She has been up walking around and doing stairs. She is voiding on her own. As long as we can modify her diet and reasonably safe way that she can take pills we anticipate she can go home today, we will taper her steroids. All the following discuss with Dr. Rizvi who agrees with the plan as outlined above.
--- NOTE | 2025-03-15 08:46 | PM.DS ---
DS: Providers Provider Date of Service: 03/13/25 Date of discharge: 03/21/25 Primary care physician: Unknown Physician Admitting clinician: Jose Rizvi DS: Diagnosis Discharge Diagnosis (1) Cervical myelopathy: Status: Acute (2) Dysphagia: Status: Acute DS: Summary Hospital Course Hospital Course: Patient was admitted for C2-3 anterior cervical diskectomy and fusion for severe cervical myelopathy. Patient underwent a procedure without complication. She was brought to the PACU where she was having trouble with secretions and swallowing instead of discharging the patient as anticipated, she was admitted to the hospital for monitoring. Her diet was advanced but she was having trouble with thin liquids and feeling swelling in her throat and uvula. She was seen by anesthesia postoperatively on day 1 and who also felt that there was swelling. She was started on steroids. This did seem to help a little bit and by postoperative day 2. She was able to handle secretions in her postnasal drip much better. She was allowed to get out of bed on postoperative day 1. She cleared PT was able to do stairs. She was voiding on her own as well without issues throughout her hospital stay. She ultimately underwent a speech and swallow evaluation and had a modified barium swallow which showed signs of aspiration. She was made NPO, PICC line was put in her on postoperative day 2. And she was started on TPN. She was kept NPO for 3 more days, repeated modified barium swallow and this showed the patient had tolerance for thin liquids but was still having trouble with thicker substances. She was allowed to have a clear liquid diet and had no signs of aspiration. Her uvula swelling came down. Her steroids were discontinued. She spent 2 days on a clear liquid diet and was able to drink sufficient quantities felt comfortable sending her home letting her get follow-up speech therapy at home to further advance her diet as tolerated. She will also get PT and OT services at home. The rest of her stay was otherwise unremarkable. She will be discharged home in stable condition. Condition on discharge, afebrile, vital signs stable, she is awake alert oriented no acute distress, she is an anterior neck incision which is clean and dry with Steri-Strips in place. She has mild hand strength loss and some dexterity issues with her hand but otherwise strength is full. She easily is able to get herself out of a bed and ambulate with her walker. Uvula swelling is significantly reduced compared to what it was right after surgery. The patient was given discharge instructions and activity guidelines and will follow up in the office in 2-3 weeks. Time Attestation Discharge Coordination Time (in mins): 6 Quality: Safe Use of Opioids Does Pt have an Active Cancer Diagnosis on the Problem List?: No Quality: Stroke Does the patient have a stroke diagnosis?: No Physical Exam Vital Signs: Vital Signs: Last Vital Signs Temp 98.3 F 03/15/25 07:29 Pulse 92 03/15/25 07:53 Resp 16 03/15/25 07:53 BP 157/79 H 03/15/25 07:29 Pulse Ox 94 03/15/25 07:29 O2 Del Method Room Air 03/15/25 07:29 O2 Flow Rate 2 03/13/25 14:20 BMI result Body Mass Index 31.3 Discharge Plan Discharge Anticipated Discharge Date/Time: 03/21/25 15:07 Patient Disposition: Home Health Service Discharge Diagnosis: Cervical myelopathy, dysphagia Referrals: Lita SIMONS [Outside] - 1 Day Referral Note: HOME SERVICES FOR PHYSICAL THERAPY, OCCUPATIONAL THERAPY, NURSING AND SPEECH THERAPY. A NURSE WILL REACH OUT TO YOU TO SET UP FIRST VISIT/ Physician,Unknown J [Physician, Medical] - 1 Week Discharge Medications: Continued meclizine 25 mg Tablet 50 mg PO QID PRN (Reason: Vertigo) hydrochlorothiazide 25 mg Tablet 25 mg PO DAILY Clarinex-D 12 HOUR 2.5-120 mg Tablet, Er Multiphase 12 Hr 1 tab PO Q12H PRN (Reason: Allergy Symptoms) Senna Plus 8.6-50 mg Capsule 6 tab-cap PO TID montelukast [Singulair] 10 mg Tablet 10 mg PO BEDTIME nystatin 500,000 unit tablet 1,500,000 unit PO BID QNASL 80 mcg/actuation HFA aerosol inhaler 2 spray intranasal DAILY fluticasone furoate-vilanterol [Breo Ellipta] 100-25 mcg/dose blister with device 1 ea INHALATION DAILY hydrocodone-acetaminophen 10-325 mg tablet 1 tab PO Q4-6H PRN (Reason: pain) acetaminophen 500 mg Tablet 1,500 mg PO TID PRN (Reason: Pain) gabapentin 100 mg capsule 200 mg PO TID albuterol sulfate 90 mcg/actuation HFA aerosol inhaler 2 puff inhalation DAILY levocetirizine [Xyzal] 5 mg Tablet 5 mg PO BEDTIME Magnesium Complex 300 mg magnesium Tablet 900 mg PO BEDTIME cholecalciferol (vitamin D3) [Vitamin D3] 125 mcg (5,000 unit) Tablet 250 mcg PO DAILY Discontinued methylprednisolone 4 mg tablets,dose pack 4 mg PO DAILY PRN (Reason: Nasal Congestion/Swelling) Discharge Orders: Discharge Order (Routine); Ordered 03/21/25 Ordered By: Dario Acosta Diet: Advance to usual diet Activity on Discharge: As tolerated Print Language: Lithuanian Activity Restrictions/Additional Instructions: After your spinal surgery we ask you to observe the following restrictions/guidelines: Because you had difficulty swallowing during her stay here. We modified her diet to a clear liquid diet. That means you can have thin liquids. You will have a speech therapist come to your house to help you advanced your diet back to regular eating schedule. Activity: It is normal to feel some discomfort as you increase your activity, but that will improve with time. We ask you avoid heavy lifting or acitivities that cause pain. As a general rule, 8lbs is a safe limit for lifting right after surgery. Walk as much as you feel comfortable but not to exhaustion. You will feel extra tired the first few days after surgery. Stay well hydrated. It is OK to walk up and down stairs You may return to driving when you are off narcotics (such as vicodin, oxycodone, dilaudid, etc), and you are back to normal functional capacity. If you have any concerns please check with office before driving. Return to work is specific to each patient and each surgery, so please speak with your doctor/PA at first follow up. Please bring paperwork such as FMLA at that time if you need it filled out. Medications: We recommend you take 1,000mg Tylenol every 8 hours for the first few weeks after surgery, if you do not have any liver issues and can tolerate this medication. Do not exceed 4,000mg daily. We will give you a short supply of narcotics after surgery (usually one weeks worth). If you need more please call the office but do not use more than prescribed. You will need to give our office 48 hours notice if you need narcotics refilled and we do not fill narcotics on weekends or evenings. If you are on a narcotic, it is a good idea to take a stool softener such as colace or senna to avoid constipation If you take blood thinner such as aspirin, Plavix, Coumadin, Effient, Eliquis etc for conditions such as Afib, DVT, Pulmonary embolus, coronary disease, stents etc please speak with your surgeon about specific details as to when you can resume these medications. You can resume NSAIDs on post op day 1 (eg: Motrin, Naproxen, etc). Follow up: Please call the office, , after surgery to arrange a 3 week follow up for wound check. Wound Care: You may remove your dressing on the first day after surgery. ?You may ?leave open to air. Please do not remove the steri strips underneath. they will fall off on their own in one week. IT IS NORMAL FOR THE WOUND TO OOZE OR BE BLOODY FOR A FEW DAYS AFTER SURGERY. ?IF THIS HAPPENS JUST PLACE NEW DRESSING OVER IT TO AVOID STAINING CLOTHES. You may shower on post op day # 1 We ask that you do not let the water soak the wound. If it does get wet, just towel dry lightly. Please do not scrub your incision or place any type of chemical/ointment on the wound. No tub baths, pools or jacuzzis for one month. If you have any leaking or redness from your wound, or fevers, please call the office. Care Plan Goals: Resume a regular diet with the help of your therapists. Health Concerns: Resume regular diet with the help of your therapist and improve the function of your hands with therapy. Plan of Treatment: As above, targeted physical, occupational and speech therapy Assessment: Stable
--- NOTE | 2025-03-15 09:12 | P.F2F_ITS ---
Service Date Service Date: 03/15/25 Encounter Date of encounter: 03/15/25 Reasons for Services Signs and symptoms assessed: Dysphagia, gait imbalance, myelopathy Reason for long-term: neurological assessment, wound care and postoperative assessment and/or care Reason for physical therapy: home safety and mobility, therapeutic exercises and gait/transfer training Reason for occupational therapy: home safety and mobility, therapeutic exercises and gait/transfer training Reason for speech therapy: swallowing impairment Homebound: Leaving the home is medically contraindicated at this time without the asist of a device and/or another person due th the listed conditions above and below. Reason homebound: unsteady gait / fall risk Certification: Based on the above findings, I certify that this patient is confined to the home and needs intermittent long-term care, physical therapy and/or speech therapy, or continues to need occupational therapy. The patient is under my care, and I have initiated the establishment of the plan of care. The patient will be followed by a physician who will periodically review the plan of care. Time Spent With Patient Time: Total time managing care of this patient today __5__ minutes.
[2025-03-15 12:17] VITALS: BMI 31.3
--- NOTE | 2025-03-15 12:35 | MHC.CLN ---
NUTRITION SEEN BY LEGAL SUPPORT MANAGER WITH RECOMMENDATION FOR NPO. STARTING PPN TODAY. RECOMMEND PPN AT 50 ML PER HOUR TO PROVIDE 51 G PROTEIN, 120 G DEXTROSE, 612 KCALS. CHECK LABS INCLUDING TRIGLYCERIDES. REPLETE LYTES NEEDED. PICC SCHEDULED THIS AFTERNOON. WILL TRANSITION TO TPN THIS WEEKEND. RD AVAILABLE VIA TIGER TEXT OVER THE WEEKEND. SEE CLINICAL NUTRITION ASSESSMENT 03/15/25.
--- NOTE | 2025-03-15 14:32 | MHC.CM.PN ---
EMR REVIEWED. PT IS HAVING POST-OP COMPLICATIONS AND IS NOW I/P STATUS. [facility] HAS ACCEPTED FOR HOME SERVICES HOWEVER ARE NOT IN NETWORK WITH PT'S BC PLAN, PT IS NOT ABLE TO PAY THE COST OF AN OON SERVICE. PT CONTINUES TO DECLINE AR HOWEVER HAS FAILED MBS AND WILL REQUIRE TPN FOR NOW. PT IS UNABLE TO DO OWN TPN IF RECOMMENDED AT [place] DUE TO NUMBNESS IN HANDS BUT /DAUGHTER ARE WILLING TO LEARN. REFERRAL TO [facility] SENT. CM WILL CONTINUE TO FOLLOW FOR PLAN.
[2025-03-15 15:28] VITALS: BP 146/88; PULSE 98; RESP 18; TEMP 36; O2SAT 97
--- NOTE | 2025-03-15 19:09 | MHC.SL.MBSTD ---
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 Patient has been having difficulty managing her secretions and needed suctioning after she was given trace PO when evaluated by SUPERINTENDENT RENTING MANAGING at bedside yesterday. Patient reports she has felt the need to swallow multiple times due to feeling food stick in her throat even prior to her surgery and suspects she was experiencing this sensation due to the prominence in her cervical spine. She is now s/p surgery, with increased difficulty swallowing and has been unable to tolerate PO since. Though patient reports today she is having an easier time swallowing her saliva as compared to yesterday and does not feel her uvula as much, which was previously swollen. Recent Hospitalizations: No Respiratory Needs: Room Air Patient Orientation: Alert & Oriented x 4 Assessment Oral Motor Exam: Oral Motor Exam Unremarkable Facial Symmetry: Symmetrical Facial Movement: Controlled Mouth Occlusion: Normal Oral-Facial Teeth Characteristics: Intact/Normal, Partially Missing Oral-Facial Lip Pucker Description: Normal Oral-Facial Smile (Lips) Description: Normal Oral-Facial Puff Cheeks Description: Normal Tongue Size: Normal ? Is patient able to manage secretions?: No ? Is patient able to produce volitional cough?: Yes Clinicial Observations: MBSS was performed by the radiologist and the speech pathologist. Patient was sitting in a wheelchair for lateral view only. She was able to feed independently and trialed trace amounts (cued by SUPER[employer]ING MANAGING to take very small sips) of thin liquid and honey thick liquid via cup. Oral phase was largely unremarkable. Good oral containment with no spilling from the lips. Some pooling of contrast in the floor of mouth and trace residue on the tongue, but no premature spilling from the oral cavity prior to productive lingual motion. Pharyngeal swallow trigger was delayed, initiated as the bolus head reached the posterior laryngeal surface of the epiglottis. No evidence of nasopharyngeal reflux. Complete laryngeal elevation but with no epiglottic inversion and no laryngeal vestibular closure. Airway was wide open at the height of the swallow. On thin liquid, there was trace aspiration of contrast which had collected in the pyriform and then entered the airway coating the posterior trachea. Patient was cued to produce a strong cough, but was unable to clear contrast from the airway. On trial of honey thick liquid, there was increased pooling in the pyriform with resultant yomaira aspiration below the vocal folds with patient eliciting no spontaneous response. Patient was cued to cough on command, which did not eject contrast from the trachea. There was minimal to no pharyngeal clearance, especially on honey thick consistency, and minimal distention through the pharyngoesophageal segment opening, contributing to aspiration on residuals. Exam was discontinued at this point for patient safety, as patient was likely to continue to aspirate on all consistencies and had poor ability to protect the airway. Modified Barium Swallow Study: Oral Phase: Intact Thin Liquid via Cup, Honey Thick Liquid via Cup ? Labial Seal: Intact ? A/P Transit: Intact ? Lingual Movement: Intact ? Rotary Mastication: Could Not Test ? Premature Spillage: Intact ? Oral Residue: Intact Pharyngeal Phase: Impaired Thin Liquid via Cup, Honey Thick Liquid via Cup ? Velopharyngeal Closure: Intact ? Tongue Base Retraction: Intact ? Laryngeal Excursion: Intact ? Epiglottal Deflection: Impaired ? Pharyngeal Peristalsis: Impaired ? Valleculae Clearing: Impaired ? Pyriform Clearing: Impaired ? UES Opening: Impaired ? Penetration: Impaired ? Aspiration: Impaired Impressions and Recommendations Recommendation for Speech Therapy: Modified Barium Swallow Study - Inpatient Modified Barium Swallow Study - Outpatient Text Comment: Patient with severe pharyngeal dysphagia worsened after C2-C3 ACDF w/ anterior plating surgery. MBSS showed significant pharyngeal retention with practically no clearing and subsequent aspiration on thin and honey thick consistencies. Patient was unable to completely clear from the trachea with cued coughing, though she did expectorate some contrast from the pharynx after the exam. Recommend continue NPO status at this time, as patient is at high risk for aspiration. Monitor closely as patient heals from neck surgery, patient will need repeat-MBSS when appropriate as patient progresses to determine if she can safely eat/drink orally. Patient will need alternate source for nutrition in the meantime. Frequency/Duration: M-F while inpatient, repeat MBSS when appropriate Date Range for Service Requested: Timeline to reassess: PRN Recommended Referrals: Alternate Feeding Method Dietary Consult Patient Education Completed: Yes Patient/Caregiver Education: Described Results of Evaluation Patient expressed understanding of evaluation Comment: Comments/Barriers to Learning: Licensed Insurance Agent Clinican/Clinical Fellow: No Supervisory Statement: N/A Speech Language Pathologist: Alison Osborne M.A., CCC-[employer]NA[employer]
[2025-03-15 19:34] VITALS: BP 141/81; PULSE 97; RESP 18; TEMP 36.7; O2SAT 95
[2025-03-15] MEDS: Parenteral Nutrition 1,200 ML 50 ML IV (23:21)
[2025-03-16 02:51] VITALS: BP 150/72; PULSE 91; RESP 18; TEMP 36.1; O2SAT 93
[2025-03-16 07:22] LABS: Anion Gap 15 (12-20); Blood Urea Nitrogen 20 mg/dL (9-16); Calcium 9.0 mg/dL (8.4-10.2); Carbon Dioxide 23 mmol/L (22-29); Chloride 107 mmol/L (96-108); Creatinine Clr Calc Pharmacy 109.8; Estimated Glomerular Filt Rate > 60; Magnesium 1.5 mg/dL (1.6-2.6); Potassium 3.6 mmol/L (3.3-5.1); Sodium 141 mmol/L (135-145); Triglycerides 76 mg/dL (<150)
[2025-03-16 07:42] VITALS: BP 151/72; PULSE 80; RESP 18; TEMP 36.1; O2SAT 95
[2025-03-16 07:56] LABS: Albumin Level 3.6 g/dL (3.5-5.0)
[2025-03-16] MEDS: Fluticasone/Vilanterol 100/25 BLST.W.DEV 1 PUFF INHALE (08:25)
[2025-03-16 08:26] VITALS: PULSE 81; RESP 14; O2SAT 98
[2025-03-16] MEDS: Magnesium Sulfate/H2O 2 GM/50 ML PIGGYBACK IV (08:41)
--- NOTE | 2025-03-16 10:02 | P.PNIM_ITS ---
Subjective Subjective Date of Service: 03/16/25 <BRUNILDA Wen - Last Filed: 03/16/25 10:21> 03/17/25 <Vincent Chávez MD - Last Filed: 03/17/25 15:52> Interval History: I was asked to evaluate this patient for TPN need due to dysphagia status post neuro surgical procedure (ACDF C2-3 Dr. Rizvi 03/14) I went to evaluate patient this morning initially she was very difficult to arouse and she was sleeping, I then returned. She reports she is doing well. It is becoming easier to control her secretions and swallowing as easier than before. Her speech seems to be improving. Pain is well controlled. She also reports her upper extremity numbness is improving and she is happy about this. Does not denies any new complaints or concerns. Denies fevers, chills, nausea, vomiting, abdominal pain, chest pain or shortness of breath I explained to her she would likely remain on TPN this weekend until she is re- evaluated by speech.I did put in a consult today however unsure if they will see her today. She is agreeable to this. <BRUNILDA Wen - Last Filed: 03/16/25 10:21> Review of Systems Review of Systems: Yes all other systems are reviewed and are negative <BRUNILDA Wen - Last Filed: 03/16/25 10:21> Physical Exam 2 Exam: Exam: Appearance: Alert.? Oriented X3.? No acute distress.? Head: Normocephalic, atraumatic, no step-offs or deformities Eyes: Pupils equal, round and reactive to light.? ENT: Pharynx normal.? Neck: Normal inspection.? Neck supple.? CVS: Normal heart rate and rhythm.? Pulses normal.? Respiratory: No respiratory distress.? Breath sounds normal.? Abdomen: Soft and nontender.? Skin: Skin warm and dry.? Normal skin color.? Normal skin turgor.? Extremities: No lower extremity edema.? No calf ttp. 5/5 strength to bilateral upper and lower extremities Back: No midline tenderness, no C-spine tenderness, full range of motion, no CVA tenderness bilaterally Neuro: Oriented X 3.? No motor deficit.? No sensory deficit. CN 2-12 intact <BRUNILDA Wen - Last Filed: 03/16/25 10:21> Vital Signs: Vital Signs: Last Vital Signs Temp 96.9 F 03/16/25 07:42 Pulse 81 03/16/25 08:26 Resp 14 03/16/25 08:26 BP 151/72 H 03/16/25 07:42 Pulse Ox 95 03/16/25 07:42 O2 Del Method Room Air 03/16/25 07:42 O2 Flow Rate 2 03/13/25 14:20 BMI result Body Mass Index 31.3 <BRUNILDA Wen - Last Filed: 03/16/25 10:21> Objective Data Active Medications Acetaminophen (Acetaminophen 325 Mg Tablet) 650 mg PO Q8H PRN PRN Reason: Pain, Mild (Pain Scale 1-3) Hydrocodone Bitart/Acetaminophen (Hydrocodone Bit/Acetam 5/325 Tablet) 1 tab PO Q4H PRN PRN Reason: Pain, Moderate(Pain Scale 4-6) Hydrocodone Bitart/Acetaminophen (Hydrocodone Bit/Acetam 5/325 Tablet) 2 tab PO Q4H PRN PRN Reason: Pain, Severe (Pain Scale 7-10) Dexamethasone Sodium Phosphate (Dexamethasone Sod Phosphate 4 Mg/Ml Vial) 1 mg IVPUSH BID [facility]; Taper Stop: 03/16/25 16:17 Last Admin: 03/16/25 08:03 Dose: 1 mg Documented By: GABRIEL Diphenhydramine HCl (Diphenhydramine Hcl 50 Mg/Ml Vial) 25 mg IVPUSH Q8H [facility] Last Admin: 03/16/25 07:55 Dose: 25 mg Documented By: GABRIEL Docusate Sodium (Docusate Sodium 100 Mg Capsule) 100 mg PO BID [facility] Last Admin: 03/16/25 07:24 Dose: Not Given Documented By: GABRIEL Non-Admin Reason: NPO Fluticasone Propionate (Fluticasone Propionate Nasal 16 Gm [place]) 1 spray NOSTRIL-B DAILY [facility] Last Admin: 03/16/25 09:31 Dose: Not Given Documented By: GABRIEL Non-Admin Reason: Med Not Available Fluticasone/Vilanterol (Fluticasone/Vilanterol 100/25 Blst.W.Dev) 1 puff INHALE RDAILY [facility] Last Admin: 03/16/25 08:25 Dose: 1 puff Documented By: MERON Gabapentin (Gabapentin 400 Mg Capsule) 400 mg PO TID [facility] Last Admin: 03/16/25 08:19 Dose: Not Given Documented By: GABRIEL Non-Admin Reason: NPO Hydrochlorothiazide (Hydrochlorothiazide 25 Mg Tablet) 25 mg PO DAILY [facility]; Protocol Last Admin: 03/16/25 07:25 Dose: Not Given Documented By: GABRIEL Non-Admin Reason: NPO Hydromorphone HCl (Hydromorphone Hcl 1 Mg/Ml Syringe) 1 mg IVPUSH Q3H PRN; Protocol PRN Reason: Pain, Severe (Pain Scale 7-10) Last Admin: 03/15/25 21:22 Dose: 1 mg Documented By: MARCO ANTONIO Nutrition (Parenteral) (Parenteral Nutrition) 1,200 mls @ 50 mls/hr IV .Q24H [facility]; Protocol Stop: 03/16/25 20:59 Last Admin: 03/15/25 23:21 Dose: 50 mls/hr Documented By: GREG Nutrition (Parenteral) (Parenteral Nutrition) 1,560 mls @ 65 mls/hr IV .Q24H [facility]; Protocol Stop: 03/17/25 20:59 Magnesium Sulfate (Magnesium Sulfate/H2o) 2 gm in 50 mls @ 25 mls/hr IV ONCE ONE Stop: 03/16/25 10:24 Last Admin: 03/16/25 08:41 Dose: 25 mls/hr Documented By: GABRIEL Meclizine HCl (Meclizine Hcl 25 Mg Tablet) 25 mg PO QID PRN PRN Reason: Vertigo Methocarbamol (Methocarbamol 750 Mg Tablet) 750 mg PO TID [facility] Last Admin: 03/16/25 08:19 Dose: Not Given Documented By: GABRIEL Non-Admin Reason: NPO Montelukast Sodium (Montelukast Sodium 10 Mg Tablet) 10 mg PO BEDTIME [facility] Last Admin: 03/15/25 22:14 Dose: Not Given Documented By: MANISH Non-Admin Reason: npo Non-Formulary Medication (Beclomethasone Dipropionate [Qnasl]) 2 spray NOSTRIL- B DAILY [facility] Nystatin (Nystatin Oral Susp 500,000 Unit/5 Ml Oral.Susp) 200,000 unit PO BID [facility]; Protocol Last Admin: 03/16/25 07:25 Dose: Not Given Documented By: GABRIEL Non-Admin Reason: NPO Omeprazole (Omeprazole 20 Mg Capsule.) 20 mg PO DAILY@0630 [facility] Last Admin: 03/16/25 05:34 Dose: Not Given Documented By: KWABENA Non-Admin Reason: NPO Ondansetron HCl (Ondansetron Hcl 4 Mg/2 Ml Vial) 4 mg IVPUSH Q6H PRN PRN Reason: Nausea and Vomiting Last Admin: 03/15/25 08:34 Dose: 4 mg Documented By: [facility] Consult (Consult Rx Parenteral Nutrition Ordering) 1 each MISCELLANE DAILY PRN PRN Reason: Consult order Senna/Docusate Sodium (Sennosides/Docusate Sodium Tablet) 1 tab PO DAILY [facility] Last Admin: 03/16/25 07:25 Dose: Not Given Documented By: GABRIEL Non-Admin Reason: NPO <BRUNILDA Wen - Last Filed: 03/16/25 10:21> Labs CBC & Chem 7: 03/04/25 16:20 03/17/25 06:10 <BRUNILDA Wen - Last Filed: 03/16/25 10:21> Labs: Laboratory Results - last 24 hr 03/16/25 03/16/25 05:48 05:49 Hold Purple Top SEE NOTE Anion Gap 15 Estim Creat Clear Calc 109.8 Estimated GFR > 60 Random Glucose 105 Calcium 9.0 D Phosphorus 3.0 Magnesium 1.5 L Albumin 3.6 Triglycerides 76 <BRUNILDA Wen - Last Filed: 03/16/25 10:21> Assessment and Plan (1) Dysphagia: Status: Acute <BRUNILDA Wen - Last Filed: 03/16/25 10:21> Assessment and Plan: I explained to her she would likely remain on TPN this weekend until she is re-evaluated by speech. She is agreeable to this. BRUNILDA Acosta aware of plan <BRUNILDA Wen - Last Filed: 03/16/25 10:21> Total time managing care of this patient today: 15 minutes. <BRUNILDA Wen - Last Filed: 03/16/25 10:21> Quality Stroke Does the patient have a stroke diagnosis?: No <BRUNILDA Wen - Last Filed: 03/16/25 10:21> VTE Prior VTE?: No <BRUNILDA Wen - Last Filed: 03/16/25 10:21> VTE Risk Level:: Surgical - low <BRUNILDA Wen - Last Filed: 03/16/25 10:21> VTE Device Contraindication: N/A - Device Ordered <BRUNILDA Wen - Last Filed: 03/16/25 10:21> VTE Drug Contraindication: Treatment Not Indicated <BRUNILDA Wen - Last Filed: 03/16/25 10:21>
[2025-03-16 14:35] VITALS: PULSE 100
[2025-03-16 15:12] VITALS: BP 160/90; PULSE 88; RESP 18; TEMP 36.2; O2SAT 98
[2025-03-16 19:58] VITALS: BP 140/60; PULSE 92; RESP 18; TEMP 36.4; O2SAT 93
[2025-03-16] MEDS: Parenteral Nutrition 1,560 ML 65 ML IV (23:35)
[2025-03-17 03:26] VITALS: BP 150/88; PULSE 82; RESP 18; TEMP 36.4; O2SAT 96
[2025-03-17 06:55] LABS: Anion Gap 14 (12-20); Blood Urea Nitrogen 19 mg/dL (9-16); Calcium 8.8 mg/dL (8.4-10.2); Carbon Dioxide 21 mmol/L (22-29); Chloride 107 mmol/L (96-108); Creatinine Clr Calc Pharmacy 107.9; Estimated Glomerular Filt Rate > 60; Magnesium 1.5 mg/dL (1.6-2.6); Potassium 3.1 mmol/L (3.3-5.1); Sodium 139 mmol/L (135-145)
[2025-03-17 07:47] VITALS: BP 162/83; PULSE 100; RESP 18; TEMP 36.2; O2SAT 95
[2025-03-17] MEDS: Fluticasone/Vilanterol 100/25 BLST.W.DEV 1 PUFF INHALE (08:08)
[2025-03-17 08:10] VITALS: PULSE 103; RESP 18; O2SAT 94
--- NOTE | 2025-03-17 15:10 | MHC.SLORD ---
Speech Language Pathology Order Status: SMALL PRODUCTS ASSEMBLER MBSS recc Patient with severe pharyngeal dysphagia worsened after C2-C3 ACDF w/ anterior plating surgery. MBSS showed significant pharyngeal retention with practically no clearing and subsequent aspiration on thin and honey thick consistencies. Patient was unable to completely clear from the trachea with cued coughing, though she did expectorate some contrast from the pharynx after the exam. Recommend continue NPO status at this time, as patient is at high risk for aspiration. Monitor closely as patient heals from neck surgery, patient will need repeat-MBSS when appropriate as patient progresses to determine if she can safely eat/drink orally. Patient will need alternate source for nutrition in the meantime, repeat MBSS when appropriate . MD consulted, pt provided with review of recc. D/t nature and severity of silent aspiration, re-assessment of swallow mechanism to be visualized vs assessed at bedside.
--- NOTE | 2025-03-17 15:54 | HO.PM.IMPN ---
Subjective Subjective Date of Service: 03/17/25 Interval History: seen in f/u for med management for dysphagian following cervical spine decompression procedure, she has been on TPN for dysphagia but has been making progress, she states her sppeech is better and tolerating ice chip, SUPERVISOR HARVESTING would like another MBS before another bedside swallow Physical Exam Exam: Exam: General: AO X 3, no acute distress Resp: CTA bilateral CVS: S1,S2,RRR GI: +BS, NT, no distention Skin: No rash Neuro: motor grossly intact, CN 2 to 12 intact Psych: appropriate affect Vital Signs: Vital Signs: Last Vital Signs Temp 97.1 F 03/17/25 07:47 Pulse 103 H 03/17/25 08:10 Resp 18 03/17/25 08:10 BP 162/83 H 03/17/25 07:47 Pulse Ox 95 03/17/25 07:47 O2 Del Method Room Air 03/17/25 07:47 O2 Flow Rate 2 03/13/25 14:20 BMI result Body Mass Index 31.3 Objective Data Active Medications Acetaminophen (Acetaminophen 325 Mg Tablet) 650 mg PO Q8H PRN PRN Reason: Pain, Mild (Pain Scale 1-3) Hydrocodone Bitart/Acetaminophen (Hydrocodone Bit/Acetam 5/325 Tablet) 1 tab PO Q4H PRN PRN Reason: Pain, Moderate(Pain Scale 4-6) Hydrocodone Bitart/Acetaminophen (Hydrocodone Bit/Acetam 5/325 Tablet) 2 tab PO Q4H PRN PRN Reason: Pain, Severe (Pain Scale 7-10) Diphenhydramine HCl (Diphenhydramine Hcl 50 Mg/Ml Vial) 25 mg IVPUSH Q8H [facility] Last Admin: 03/17/25 08:54 Dose: 25 mg Documented By: CONNIE Docusate Sodium (Docusate Sodium 100 Mg Capsule) 100 mg PO BID [facility] Last Admin: 03/17/25 07:27 Dose: Not Given Documented By: CONNIE Non-Admin Reason: NPO Fluticasone Propionate (Fluticasone Propionate Nasal 16 Gm [place]) 1 spray NOSTRIL-B DAILY [facility] Last Admin: 03/17/25 08:54 Dose: Not Given Documented By: CONNIE Non-Admin Reason: Patient Refused Fluticasone/Vilanterol (Fluticasone/Vilanterol 100/25 Blst.W.Dev) 1 puff INHALE RDAILY [facility] Last Admin: 03/17/25 08:08 Dose: 1 puff Documented By: JHONATAN Gabapentin (Gabapentin 400 Mg Capsule) 400 mg PO TID [facility] Last Admin: 03/17/25 14:25 Dose: Not Given Documented By: CONNIE Non-Admin Reason: NPO Hydrochlorothiazide (Hydrochlorothiazide 25 Mg Tablet) 25 mg PO DAILY [facility]; Protocol Last Admin: 03/17/25 07:28 Dose: Not Given Documented By: CONNIE Non-Admin Reason: NPO Hydromorphone HCl (Hydromorphone Hcl 1 Mg/Ml Syringe) 1 mg IVPUSH Q3H PRN; Protocol PRN Reason: Pain, Severe (Pain Scale 7-10) Last Admin: 03/17/25 13:30 Dose: 1 mg Documented By: CONNIE Nutrition (Parenteral) (Parenteral Nutrition) 1,560 mls @ 65 mls/hr IV .Q24H [facility]; Protocol Stop: 03/17/25 20:59 Last Admin: 03/16/25 23:35 Dose: 65 mls/hr Documented By: KWABENA Nutrition (Parenteral) (Parenteral Nutrition) 1,560 mls @ 65 mls/hr IV .Q24H [facility]; Protocol Stop: 03/18/25 20:59 Meclizine HCl (Meclizine Hcl 25 Mg Tablet) 25 mg PO QID PRN PRN Reason: Vertigo Methocarbamol (Methocarbamol 750 Mg Tablet) 750 mg PO TID [facility] Last Admin: 03/17/25 14:25 Dose: Not Given Documented By: CONNIE Non-Admin Reason: NPO Montelukast Sodium (Montelukast Sodium 10 Mg Tablet) 10 mg PO BEDTIME [facility] Last Admin: 03/16/25 20:06 Dose: Not Given Documented By: KWABENA Non-Admin Reason: NPO Nystatin (Nystatin Oral Susp 500,000 Unit/5 Ml Oral.Susp) 200,000 unit PO BID [facility]; Protocol Last Admin: 03/17/25 07:28 Dose: Not Given Documented By: CONNIE Non-Admin Reason: NPO Omeprazole (Omeprazole 20 Mg Capsule.Dr) 20 mg PO DAILY@0630 [facility] Last Admin: 03/17/25 05:32 Dose: Not Given Documented By: KWABENA Non-Admin Reason: NPO Ondansetron HCl (Ondansetron Hcl 4 Mg/2 Ml Vial) 4 mg IVPUSH Q6H PRN PRN Reason: Nausea and Vomiting Last Admin: 03/15/25 08:34 Dose: 4 mg Documented By: [facility] Consult (Consult Rx Parenteral Nutrition Ordering) 1 each MISCELLANE DAILY PRN PRN Reason: Consult order Senna/Docusate Sodium (Sennosides/Docusate Sodium Tablet) 1 tab PO DAILY [facility] Last Admin: 03/17/25 07:28 Dose: Not Given Documented By: CONNIE Non-Admin Reason: NPO Labs 03/04/25 16:20 03/17/25 06:10 Labs: Laboratory Results - last 24 hr 03/17/25 06:10 Hold Purple Top SEE NOTE Anion Gap 14 Estim Creat Clear Calc 107.9 Estimated GFR > 60 Random Glucose 138 H Calcium 8.8 Phosphorus 3.1 Magnesium 1.5 L Assessment and Plan (1) Dysphagia: Status: Acute (2) Hypokalemia: Status: Acute (3) Hypomagnesemia: Status: Acute Plan Dysphagia following cervical spinal surgery Present on tpn and should have continous SUPERVISOR HARVESTING follow up, an MBS is planned next continue TPN adjust electrolyes and divalents addtional management per neurosurgery Quality Stroke Does the patient have a stroke diagnosis?: No VTE Prior VTE?: No VTE Risk Level:: Surgical - low VTE Device Contraindication: N/A - Device Ordered VTE Drug Contraindication: Treatment Not Indicated
[2025-03-17 15:57] VITALS: BP 161/79; PULSE 92; RESP 18; TEMP 36.5; O2SAT 95
[2025-03-17] MEDS: Magnesium Sulfate/H2O 2 GM/50 ML PIGGYBACK IV (17:23)
[2025-03-17] MEDS: Potassium Chloride/H20 10 MEQ/100 ML PIGGYBACK 100 MEQ IV ×2 (19:35→21:08)
[2025-03-17 19:36] VITALS: BP 150/82; PULSE 84; RESP 18; TEMP 36.4; O2SAT 95
[2025-03-17] MEDS: Parenteral Nutrition 1,560 ML 65 ML IV (21:36)
[2025-03-18] VITALS (8 sets, daily range): BP systolic 142–168; BP diastolic 73–81; PULSE 88–103; RESP 16–18; TEMP 36.1–36.3; O2SAT 93–97
[2025-03-18] MEDS: diazePAM 10 MG/2 ML CARTRIDGE 2.5 MG IVPUSH (00:12)
[2025-03-18 07:31] LABS: Blood Urea Nitrogen 20 mg/dL (9-16); Calcium 9.2 mg/dL (8.4-10.2); Creatinine Clr Calc Pharmacy 105.9; Estimated Glomerular Filt Rate > 60; Magnesium 1.7 mg/dL (1.6-2.6)
[2025-03-18 07:53] LABS: Anion Gap 16 (12-20); Carbon Dioxide 21 mmol/L (22-29); Chloride 106 mmol/L (96-108); Potassium 4.1 mmol/L (3.3-5.1); Sodium 139 mmol/L (135-145)
--- NOTE | 2025-03-18 08:22 | PM.EVENT ---
Event Note Date of Service: 03/18/25 Event Note: elevated bp readings while NPO. IV hydralazine ordered prn Time Spent With Patient Time: Total time managing care of this patient today ____ minutes.
[2025-03-18] MEDS: Fluticasone/Vilanterol 100/25 BLST.W.DEV 1 PUFF INHALE (08:23)
[2025-03-18] MEDS: Nystatin Oral Susp 500,000 UNIT/5 ML ORAL.SUSP 200000 UNIT PO (09:15)
--- NOTE | 2025-03-18 10:09 | MHC.SLORD ---
Speech Language Pathology Order Status: LABORATORY CLERK consulted with pt this morning to review POC. Pt remains NPO except ice chips pending repeat MBSS. Clinical evaluation of swallow mechanism requires visualization through MBSS d/t silent aspiration revealed on prior MBSS. Anticipate repeat evaluation to be completed tomorrow. LABORATORY CLERK continues to follow; pt has been referred for skilled ST upon d/c from inpatient. Pt in agreement with POC, endorses hunger.
--- NOTE | 2025-03-18 10:31 | MHC.CLN ---
F/U CONTINUES NPO WITH TPN. LABOR ECONOMIST FOLLOWING. REVIEWED LABS. COMMUNICATED WITH PHARMACY. RECOMMEND CONTINUE TPN AT 65 ML PER HOUR, ADD 60 G LIPIDS. PROVIDES 78 G PROTEIN (1.2 G/KG CMW), 234 G DEXTROSE, 1708 TOTAL KCALS (27 KCALS/KG CMW). REPLETE LYTES NEEDED. FOLLOW FOR TPN TOLERANCE AND DIET ADVANCEMENT.
[2025-03-18] MEDS: Parenteral Nutrition 1,560 ML 65 ML IV (22:41)
--- NOTE | 2025-03-18 23:20 | PC.NURSE ---
At 2099, this RN tried to get TPN from refrigerator, but pyxis was in mechanical fail mode. Pharmacy notified at 2104. Access to refrigerator was obtained at 2239. Therefore TPN was administered late, started at 2241.
[2025-03-19] VITALS (7 sets, daily range): BP systolic 146–177; BP diastolic 69–86; PULSE 93–110; RESP 15–18; TEMP 36.4–36.8; O2SAT 93–96
[2025-03-19 06:59] LABS: Anion Gap 12 (12-20); Blood Urea Nitrogen 21 mg/dL (9-16); Calcium 9.2 mg/dL (8.4-10.2); Carbon Dioxide 25 mmol/L (22-29); Chloride 104 mmol/L (96-108); Creatinine Clr Calc Pharmacy 109.8; Estimated Glomerular Filt Rate > 60; Magnesium 1.7 mg/dL (1.6-2.6); Potassium 4.1 mmol/L (3.3-5.1); Sodium 137 mmol/L (135-145)
[2025-03-19] MEDS: Fluticasone/Vilanterol 100/25 BLST.W.DEV 1 PUFF INHALE (07:42)
--- NOTE | 2025-03-19 07:52 | HO.NEUROPN_ITS ---
Neurosurgery Operative Note Date of Service: 03/19/25 Narrative: Postoperative day 6. Anterior cervical fusion C2-3 Patient reports that she had no issues over the weekend other than just being frustrated enough being able the eat. She feels as though she is handling secretions better. She is having some difficulties with her allergies because she can not take her normal oral medications. She is on IV Benadryl for now and remains on steroids as well. Denies any fevers, chills, nausea vomiting, chest pain shortness of breath etc.. She has been up walking around the room with her walker and is anxious to go home today if she passes her barium swallow test. She feels as though her arms are stronger than they were before surgery. Afebrile, vital signs stable, mild tachycardia in the low 100s Physical exam: Patient seen at bedside with Dr. Rizvi, patient is sitting up , neck anterior dressing is clean and dry, it was removed, Steri-Strips underneath are clean and dry. Continues to have strength loss in the hands and some degree in her hip flexors which I would rate as 4-5, stable compared to preop. Impression: Postop day 6. Anterior cervical fusion C2-3 for cervical myelopathy, has postoperative dysphagia, failed barium swallow test 4 days ago, is now awaiting re-evaluation to see if we can advance diet and discharge home. She is supposed to have the test this morning and we can determine disposition after that. Otherwise she has met criteria for discharge.
--- NOTE | 2025-03-19 09:01 | MHC.CLN ---
F/U PT PENDING MBS WITH SALES SUPPORT SPECIALIST THIS AM POSSIBLE DISCHARGE TODAY PER MD S/P MBS REVIEWED LABS COMMUNICATED WITH PHARMACY IF TPN TO CONTINUE; RESUME AT 65 ML PER HOUR WITH 60 G LIPIDS TO PROVIDE 1708 TOTAL KCALS (27 KCALS/KG CMW), 78 G PROTEIN (1.2 G/KG), 234 G DEXTROSE REPLETE LYTES NEEDED FOLLOWING WITH TEAM
--- NOTE | 2025-03-19 16:41 | MHC.SL.MBSTD ---
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 Prior MBSS 03/15 showed significant pharyngeal retention with practically no clearing and subsequent aspiration on thin and honey thick consistencies. Patient was unable to completely clear from the trachea with cued coughing, though she did expectorate some contrast from the pharynx after the exam. Patient was recommended to continue NPO status over the weekend to be followed by DEPUTY BUILDING GUARD closely as she heals from neck surgery. Patient is receiving nutrition via TPN and reports she has been hydrating her mouth with moistened swabs. She says she does not produce much saliva d/t taking benadryl which is causing her to have dry mouth, however, reports no difficulty swallowing trace liquid from the moistened swabs. She says overall she is managing her secretions well. Patient was seen by DEPUTY BUILDING GUARD this morning and appears to have improved, as she was able to swallow water by the teaspoon with no overt s/s of aspiration. Patient was subsequently sent for MBSS to evaluate for any improvement and hopefully to identify a diet for oral intake. Clinicial Observations: MBSS was performed by the radiologist and the speech pathologist. Patient was sitting in a wheelchair for lateral view only. She was able to feed independently and trialed the following consistencies: -thin liquid via teaspoon & individual cup sips -pureed solid (mixture applesauce w/ barium pudding) Oral phase was unremarkable. Good oral containment with no anterior loss of bolus. Patient was instructed to hold the bolus in the oral cavity before swallowing and maintained a cohesive bolus with no premature spilling from the oral cavity. Posterior lingual movement for bolus transport was timely. Pharyngeal swallow trigger was also timely. Trace lingual residue cleared on subsequent swallows. No evidence of nasopharyngeal reflux. Complete laryngeal elevation and anterior hyoid excursion but with absent epiglottic inversion and incomplete laryngeal vestibular closure. Airway was partially open at the height of the swallow. -Thin liquid: On teaspoon trials, there was trace penetration above the vocal folds, which mostly cleared on cued throat clearing. When patient took sips of thin liquid by cup, there was an increase of contrast spilling over from the pyriforms and penetrating into the airway to the level of the vocal folds, which again mostly cleared with throat clearing followed with dry swallowing. Moderate pharyngeal retention, in the valleculae, pyriforms, and on the posterior pharyngeal wall, which was reduced, but not entirely cleared on multiple dry swallows (5+). -Puree: There was penetration above the vocal folds with partial clearing on throat clearing. There was minimal pharyngeal clearance on this texture with minimal distention through the pharyngoesophageal segment opening. Patient exhibited difficulty clearing retained material with dry swallows. Patient was unable to complete the chin tuck maneuver, reporting that her neck was too stiff to move that far. Modified Barium Swallow Study: Oral Phase: Intact ? Labial Seal: Intact ? A/P Transit: Intact ? Lingual Movement: Intact ? Rotary Mastication: Could Not Test ? Premature Spillage: Intact ? Oral Residue: Intact Pharyngeal Phase: Impaired ? Velopharyngeal Closure: Intact ? Tongue Base Retraction: Intact ? Laryngeal Excursion: Intact ? Epiglottal Deflection: Impaired ? Pharyngeal Peristalsis: Impaired ? Valleculae Clearing: Impaired ? Pyriform Clearing: Impaired ? UES Opening: Impaired ? Penetration: Impaired ? Aspiration: Intact Recommendation for Speech Therapy: Inpatient Speech Therapy Modified Barium Swallow Study - Inpatient Text Comment: Improvement from last MBSS 03/15/25, however, patient remains at heightened risk of aspiration and due to impairments of the pharyngeal phase will likely not be able to meet nutritional/hydrational needs on PO alone at this time. Oral phase is unremarkable, good oral containment and control, timely lingual transit, and good clearance. Patient presents with notable impairments of the pharyngeal phase, with absent epiglottic inversion and incomplete laryngeal vestibular closure compromising airway protection. On very small sips of thin liquid, there was a moderate amount of retention in the valleculae and pyriforms, reduced after multiple dry swallows (5 or more). There was penetration seen above and to the level of the vocal folds which partially cleared with cued throat clearing followed by dry swallowing to prevent subsequent aspiration. Patient trialed puree consistency, with minimal clearance, patient was unable to clear bolus from the pharynx despite persistent swallowing. Patient is recommended thin liquids only (liquid diet) for partial PO therapeutically to work the swallow, however, is unlikely to meet her nutritional/hydrational needs given these impairments and the effort required to swallow thin consistency. While patient did not aspirate during this study, her swallow is effortful with small liquid boluses, she remains at risk for aspirating on residuals, and she will not be able to sustain nutrition/hydration on this alone. This is the critical time for intervention after patient's procedure and she will need close monitoring daily. Patient is recommend repeat-MBSS before discharge (tentatively planned for Tuesday) to allow for more time for patient to further rehabilitate her swallow. In the meantime, DEPUTY BUILDING GUARD will see patient 2x daily at meal time 03/20 & 03/21 for dysphagia treatment. Thin liquids to be administered by teaspoon only, follow with throat clear and multiple dry swallows. Discontinue trials if patient evidences any overt s/s of aspiration or change to 02 sat/respirations. Frequency/Duration: 2x daily 03/20 & 03/21, repeat MBSS to follow Date Range for Service Requested: Timeline to reassess: PRN Recommended Referrals: Dietary Consult Patient Education Completed: Yes Patient/Caregiver Education: Described Results of Evaluation Patient expressed understanding of evaluation Patient requires further education on strategies Comment: Comments/Barriers to Learning: [place] Man Clinican/Clinical Fellow: No Supervisory Statement: N/A Speech Language Pathologist: Alison Osborne M.A., [facility]-DEPUTY BUILDING GUARD
--- NOTE | 2025-03-19 18:58 | MHC.SL.DTX ---
Dysphagia Diet modifications: Last documented Solid diet consistencies: NPO Last documented Liquid consistency: NPO Last documented Medication Administration:NPO Changes made to current diet?: No: Please see MBSS STUDY for diet recommendations/plan Liquid Consistency and Strategies: Liquid Intake Recommendation: Thin Compensatory Strategies for Safe Swallow: Small Sips No Straws Double Swallow Liquids by Teaspoon Only Compensatory Strategies for Safe Swallow(b): Sitting Upright (90 deg) Double Swallow No Straw Liquids from Spoon Solid Food Consistency: Dietary Recommendations: No Solids Additional Modifications to Solids: Continue frequent oral care for hygiene/comfort Oral Medication Intake: NPO Strategies and Precautions to be Taken for Safe Swallow: Sitting Upright (90 deg) Double Swallow No Straw Liquids from Spoon Supervision While Eating and/Drinking: PO with MOLDED RUBBER GOODS CUTTER Foods to Avoid: Swallowing Recommended Treatments: Pharyngeal Resistive Exer Compens. Strategy Educat. Level of Impact on: Daily activities: Interpersonal interactions: Education: Employment: Community: Prognosis for Improvement: Guarded Recommendation for Speech: Inpatient Speech Therapy Modified Barium Swallow Study - Inpatient Comment: Improvement from last MBSS 03/15/25, however, patient remains at heightened risk of aspiration and due to impairments of the pharyngeal phase will likely not be able to meet nutritional/hydrational needs on PO alone at this time. Oral phase is unremarkable, good oral containment and control, timely lingual transit, and good clearance. Patient presents with notable impairments of the pharyngeal phase, with absent epiglottic inversion and incomplete laryngeal vestibular closure compromising airway protection. On very small sips of thin liquid, there was a moderate amount of retention in the valleculae and pyriforms, reduced after multiple dry swallows (5 or more). There was penetration seen above and to the level of the vocal folds which partially cleared with cued throat clearing followed by dry swallowing to prevent subsequent aspiration. Patient trialed puree consistency, with minimal clearance, patient was unable to clear bolus from the pharynx despite persistent swallowing. Patient is recommended thin liquids only (liquid diet) for partial PO therapeutically to work the swallow, however, is unlikely to meet her nutritional/hydrational needs given these impairments and the effort required to swallow thin consistency. While patient did not aspirate during this study, her swallow is effortful with small liquid boluses, she remains at risk for aspirating on residuals, and she will not be able to sustain nutrition/hydration on this alone. This is the critical time for intervention after patient's procedure and she will need close monitoring daily. Patient is recommend repeat-MBSS before discharge (tentatively planned for Tuesday) to allow for more time for patient to further rehabilitate her swallow. In the meantime, MOLDED RUBBER GOODS CUTTER will see patient 2x daily at meal time 03/20 & 03/21 for dysphagia treatment. Thin liquids to be administered by teaspoon only, follow with throat clear and multiple dry swallows. Discontinue trials if patient evidences any overt s/s of aspiration or change to 02 sat/respirations. Frequency/Duration: 2x daily 03/20 & 03/21, repeat MBSS to follow Date Range for Service Req: Timeline to reassess: PRN Additional Comments: Treatment: Patient seen this morning for re-assessment of swallow/readiness for repeat MBSS study. Patient reporting some improvement over weekend, with improved management of secretions, with suctioning no longer needed. Patient still with c/o Post Nasal Drip issues, also presenting with mild hyponasal vocal quality. Patient was initially provided with mouthwash and swab which patient used for oral care. Patient initiated swallow on residual of mouthwash, with laryngeal elevation palpated, and reported clearance of trace liquids (no coughing, change in vocal quality, distress). Patient then completed oral motor exercises of effortful lingual protrusion and retraction X3; repetative glottal sounds /ka/ and /ga/, with noted mild slurring/difficulty producing these CV sounds. Patient then given 1/4 tsp amount of water, with patient cued to hold briefly orally then propel for swallow. Patient initiated swallow with mild delay, demonstrated good laryngeal transit on palpation, and on first trial cleared bolus with single swallow with no clinical signs of aspiration. On repeat trials patient noted to swallow X2 on each presentation, with patient noting tucking chin appeared to assist swallow. Patient presented as able to swallow water with improved management, leading to recommendation that MBSS study be repeated on this day, which was subsequently scheduled for 11 a.m. Please see comprehensive note from that study for recommendations/plan. Assessment: Farm Helper Clinican/Clinical Fellow: No Supervisory Statement: I have reviewed and agree with the student/clinical fellow's documentation: N/A Speech Language Pathologist: Evon Adhikari M.A., [facility]-MOLDED RUBBER GOODS CUTTER
[2025-03-19] MEDS: Parenteral Nutrition 1,560 ML 65 ML IV (22:10)
[2025-03-20 03:46] VITALS: BP 114/67; PULSE 111; RESP 18; TEMP 36.7; O2SAT 95
[2025-03-20 06:16] LABS: Anion Gap 12 (12-20); Blood Urea Nitrogen 20 mg/dL (9-16); Calcium 9.6 mg/dL (8.4-10.2); Carbon Dioxide 26 mmol/L (22-29); Chloride 102 mmol/L (96-108); Creatinine Clr Calc Pharmacy 105.9; Estimated Glomerular Filt Rate > 60; Magnesium 1.7 mg/dL (1.6-2.6); Potassium 4.3 mmol/L (3.3-5.1); Sodium 136 mmol/L (135-145)
[2025-03-20 07:04] VITALS: BP 139/85; PULSE 100; RESP 16; TEMP 36.6; O2SAT 94
[2025-03-20 07:39] VITALS: PULSE 98; RESP 17; O2SAT 94
[2025-03-20] MEDS: Fluticasone/Vilanterol 100/25 BLST.W.DEV 1 PUFF INHALE (07:39)
--- OUTSIDE RECORDS SUMMARY | 2025-03-20 08:03 | XMS_ITS | Clinical Summary ---
Author Organization [facility] Address [address] [place] [address] Care Team Providers Care Clinical Data Research Name Role Phone Zainab Tobin Primary Care [...] age to complete this topic Care Teams Clinical Data Research Relationship Specialty Start Date End Date Zainab Tobin PCP - General Internal Medicine 10/15/20
--- OUTSIDE RECORDS SUMMARY | 2025-03-20 08:03 | XMS_ITS | Clinical Summary ---
Author Organization [facility] [address] [place] [address] Address [address] [place], [place] Phone Care Team Providers Care Director Informatics Name Role Phone Ruben Guan MD Primary Care Provider [phone] Allergies Active Allergy Reactions Criticality Noted Date [...] time each day. Med Name: balance of AeroFS: 3 fruits and 3 vegetable capsules Active [...] Comments OTHER SURGICAL HISTORY 2014 Left PROCEDURE: ME ARTHRP ACETBLR/PROX FEM PROSTC AGRFT/ALGRFT PARTIAL HYSTERECTOMY 2001 PROCEDURE: ME SUPRACERVICAL ABDL HYSTER W/WO RMVL TUBE OVARY; COMMENT: prolapse CARPAL TUNNEL RELEASE Bilateral PROCEDURE: HISTORICAL CARPAL TUNNEL REL OTHER SURGICAL HISTORY 2012 Right PROCEDURE: ME EXC CYST/ABERRANT BREAST TISSUE OPEN 1/> LESION; COMMENT: beningn mass and ductectomy NOSE SURGERY PROCEDURE: ME UNLISTED PROCEDURE NOSE; COMMENT: sinoplasty OTHER SURGICAL HISTORY 11/12/13 PROCEDURE: OUTSIDE PAP SMEAR OTHER SURGICAL HISTORY PROCEDURE: ---- OTHER ----; COMMENT: inclusion cyst R neck COLONOSCOPY 10/29/08 PROCEDURE: HISTORICAL COLONOSCOPY OTHER SURGICAL HISTORY 11/2015 Right PROCEDURE: ME ARTHRP ACETBLR/PROX FEM PROSTC AGRFT/ALGRFT LUMBAR SPINE [...] Care Team (Late st Contact Info) Description 06/19/2025 3:20 PM EST Office Visit Gastroenterology - [place] [address] [place] [address] Anca Mendez PA [address] [place] [id number] Health Maintenance Due Date Last Done Comments [...] Results * COLONOSCOPY Anesthesia - MAC; [facility] ENDOSCOPY (10/26/2024 3:16 PM EDT) Anatomical [...] pathology results. Narrative 10/26/2024 3:17 PM EDT [facility] GI Patient Name: Shira Samson Procedure [...] not prolapse). Procedure Code(s): --- Professional --- 54725, Colonoscopy, flexible; with removal of tumor(s), polyp(s), or other lesion(s) by snare technique Diagnosis Code(s): --- Professional --- Z86.010, Personal history of colonic polyps D12.2, Benign neoplasm of ascending colon D12.3, Benign neoplasm of transverse colon (hepatic flexure or splenic flexure) D12.4, Benign neoplasm of descending colon CPT copyright 2020 [employer]. All rights reserved. The codes documented in this report are preliminary and upon performance specialist review may be revised to meet current compliance requirements. Cheryl Maldonado MD 10/26/2024 3:17:26 PM This report has been signed electronically.Cheryl Maldonado MD Number of Addenda: 0 Note Initiated On: 10/26/2024 2:40 PM Scope In: Scope Out: Endoscopy Department at [facility] - [address] [place] [id number] Procedure Note Cheryl Maldonado MD - 10/26/2024 [facility] GI Patient Name: Shira Samson Procedure [...] not prolapse). Procedure Code(s): --- Professional --- 35720, Colonoscopy, flexible; with removal of tumor(s), polyp(s), or other lesion(s) by snare technique Diagnosis Code(s): --- Professional --- Z86.010, Personal history of colonic polyps D12.2, Benign neoplasm of ascending colon D12.3, Benign neoplasm of transverse colon (hepatic flexure or splenic flexure) D12.4, Benign neoplasm of descending colon CPT copyright 2020 [employer]. All rights reserved. The codes documented in this report are preliminary and upon performance specialist reviewmay be revised to meet current compliance requirements. Cheryl Maldonado MD 10/26/2024 3:17:26 PM This report has been signed electronically.Cheryl Maldonado MD Number of Addenda: 0 Note Initiated On: 10/26/2024 2:40 PM Scope In: Scope Out: Endoscopy Department at [facility] - [address] [place] [id number] IMPRESSION: - The examined portion of the [...] colonoscopy for surveillance based on pathology results. Result [facility] Cheryl Maldonado MD GI~PROCEDURE ORDERABLES Final Result * Annual BMP Blood Test (11/17/2015) Pathologist [facility] Annual BMP Blood Test Abstracted Result [facility] Historical Provider HEALTH MAINTENANCE Final Result * (ABNORMAL) Lipid panel (11/17/2015) [facility] LDL/HDL Ratio 3 0 - 4 Triglycerides 155(A) 0 - 150 mg/dL Cholesterol 145 0 - 200 mg/dL HDL 51 >=40 mg/dL LDL Cholesterol 63 0 - 100 mg/dL Blood Venous blood specimen / Unknown Result [facility] Historical Provider LAB BLOOD ORDERABLES Apurva l Result * Pap Smear (11/12/2013) Pathologist [facility] Pap smear No Interpretation , Abstracted Historical Provider HEALTH MAINTENANCE Final Result from Last 3 Months or Most Recently Relevant to Health Maintenance Insurance [place]) Care Teams Director Informatics Relationship Specialty Start Date End Date Ruben Guan MD [address] [place] [address] PCP - General Internal Medicine 06/27/24
--- NOTE | 2025-03-20 08:35 | HO.NEURO.PN ---
Neurosurgery Operative Note Date of Service: 03/20/25 Narrative: Postop day 7, C2-3 anterior cervical fusion Patient reports that she has been drinking some liquids at bedside, has not been aspirating. She ended up getting her and BSS yesterday and although there was no signs of aspiration with thin liquids, she had some trouble with thicker type fluids. The speech therapist were concerned that she would still have some potential risk and could not sustain herself for hydration and nutrition purposes based on the liquid diet alone. She reports no significant issues taking thin liquids overnight. With regard to her neurological status, she is still has numbness of her hands but is otherwise at her baseline. She has been up walking around, voiding without any problems. No fevers, chills Physical exam: Afebrile, vital signs stable, mildly hypertensive at times Neurological examination reveals 4-5 hand strength, otherwise rest of strength in the upper and lower extremities is full. Anterior neck dressing is clean and dry with Steri-Strips in place, no signs of hematoma Impression: 65-year-old female postop day 7. C2-3 anterior cervical fusion for severe cervical myelopathy and spinal cord compression, postoperative course positive for significant dysphagia. Follow-up MBS as she is today showed no signs of aspiration but still having some issues with pocketing and risk of not being able to safely take thickened up liquids and substances. Speech therapy would like to continue to work with her for few days. She has been on thin liquids overnight and reports drinking yasmany stephanie with no significant coughing or signs of choking. We are optimistic that she may be able to advance her diet sooner rather than later. However, Dr. Rizvi and I had a discussion yesterday that it is possible that if there is no improvement, she may need a PEG to sustain nutrition if the process of the swallowing is going to take significantly more time. The patient understands, would like to avoid it if possible. She is going to work with the speech therapist twice a day and we will see how it goes. Otherwise she is stable neurologically, and his met criteria for discharge once the swallowing issues are settled. Dr. Rizvi updated on the patient's plan and agrees as outlined above. Appreciate hopsitalist assistance and comanagement with this patient.
--- NOTE | 2025-03-20 10:24 | MHC.CLN ---
Addendum entered by Quynh Jacobo, DIANDRA 03/20/25 15:37: PER CONVERSATION WITH MANAGER MARKETING COMMUNICATIONS, DIET CHANGED TO CLEAR LIQUID DIET. Original Note: F/U DIET ADVANCED 03/19 TO FULL LIQUIDS, THIN LIQUIDS ONLY CONTINUE TPN REVIEWED LABS COMMUNICATED WITH PHARMACY CONTINUE TPN AT 65 ML PER HOUR WITH 60 G LIPIDS TO PROVIDE 1708 TOTAL KCALS (27 KCALS/KG CMW), 78 G PROTEIN (1.2 G/KG), 234 G DEXTROSE REPLETE LYTES NEEDED FOLLOWING WITH TEAM
--- NOTE | 2025-03-20 10:45 | MHC.CM.PN ---
Patient not medically cleared for dc at this time. Continues on TPN, advancing diet w/ RESTAURANT HOST following. CM will continue to follow.
--- NOTE | 2025-03-20 10:46 | PHA.MEDREC ---
Pharmacy Consult ? Medication Reconciliation Pharmacy has completed the medication reconciliation. Spoke with pt and she had a list on hand she read down to me. PT takes Tylenol 500mg tabs (3 tabs TID), she was taking Gababpentin 100mg tabs 1 TID but was increased to Gabapentin 400mg tabs 1 tab TID for the surgery and states she is going to go back to the 100mg TID when she gets home from surgery, she takes her Methyprednisolone as needed for nasal congestion/swelling, pt has her Qnasal 80mcg 2 sprays daily and the pt states she has not taken any medications since last Tuesday 03/13.
--- NOTE | 2025-03-20 11:43 | PHA.MEDREC ---
Addendum entered by Rhonda Webster RP 03/20/25 12:12: Reviewed by [facility] Original Note: Pharmacy Consult ? Medication Reconciliation Pharmacy has completed the medication reconciliation. Spoke with pt and she had a list on hand she read down to me. PT takes Tylenol 500mg tabs (3 tabs TID), she was taking Gababpentin 100mg tabs 2 TID but was increased to Gabapentin 400mg tabs 1 tab TID for the surgery and states she is going to go back to the 200mg TID when she gets home from surgery, she takes her Methyprednisolone as needed for nasal congestion/swelling, pt has her Qnasal 80mcg 2 sprays daily, pt taking Hydrochlorothiazide 50mg 1/2 tab (25mg) daily instead of 1 q48h, stating it is easier for her to do daily and the pt states she has not taken any medications since last Tuesday 03/13.
--- NOTE | 2025-03-20 14:43 | MHC.SL.SWA ---
Speech Pathologist Impression: Risk of Aspiration Pharyngeal Dysphagia Risk of Aspiration Due to: Dysphasia Diet Status: Liquid Consistency and Strategies for Safe Swallow: Liquid Intake Recommendation: Thin Liquid Intake Strategies: Small Sips No Straws Double Swallow Liquids by Teaspoon Only Solid Food Consistency: Dietary Recommendations: No Solids Additional Modifications to Solid Foods: Continue frequent oral care for hygiene/comfort Oral Medication Intake: NPO Please contact the pharmacy regarding appropriate crushable or liquid drug formulations that are available whenever modified delivery is recommended. Compensatory Strategies and Precautions to be Taken for Safe Swallow: Sitting Upright (90 deg) Double Swallow No Straw Liquids from Spoon Supervision While Eating and Drinking for Safe Swallow: PO with MERCHANDISING SPECIALIST Foods to Avoid: Swallowing Recommended Treatments: Pharyngeal Resistive Exer Compens. Strategy Educat. Recommendation for Speech: Inpatient Speech Therapy Modified Barium Swallow Study - Inpatient Comment: Pt seen twice today for dysphagia treatment. Pt is on full liquid diet, per most recent MERCHANDISING SPECIALIST recommendations s/p second MBSS. Pt using strategies of taking small sips, swallowing twice, swallowing hard, and periodically clearing throat to improve safety in tolerating yasmany stephanie, soup broth and ice cream. Pt verbalizes understanding of [facility] diet restrictions and plan for repeat MBSS this Tuesday. Pt does not want PEG, is in agreement with PPN for temporary alternative nutrition. MERCHANDISING SPECIALIST communicated with attending MD to update pt status via secure text. Frequency/Duration: 2x daily 03/20 & 03/21, repeat MBSS to follow Date Range for Service Req: Timeline to reassess: PRN Labor And Delivery Nurse Clinican/Clinical Fellow: No Supervisory Statement: I have reviewed and agree with the student/clinical fellow's documentation: N/A Speech Language Pathologist: Sheila Hernandez M.S., CCC-MERCHANDISING SPECIALIST
[2025-03-20 15:22] VITALS: BP 159/85; PULSE 116; RESP 20; TEMP 36.7; O2SAT 95
--- NOTE | 2025-03-20 15:46 | MHC.SPEECHCO ---
Patient received pudding and yogurt on breakfast & lunch trays, but did not consume any, indicating that she knew she could not swallow it. Kitchen made aware patient cannot have purees. Discussed w/ RD. Full Liquid Diet in Clinical Nutrition Manual includes some foods such as pudding and yogurt. RD advised a Clear Liquid Diet is more in line with WAREHOUSE TECHNICIAN recommendation for no solids and thin liquids only. Diet adjusted per RD. Notified neurosurgeon via [place] Message.
[2025-03-20 19:31] VITALS: BP 137/73; PULSE 103; RESP 19; TEMP 36.8; O2SAT 96
[2025-03-20] MEDS: Parenteral Nutrition 1,560 ML 65 ML IV (20:41)
[2025-03-21 03:58] VITALS: BP 170/79; PULSE 88; RESP 18; TEMP 36; O2SAT 97
[2025-03-21 06:32] LABS: Anion Gap 13 (12-20); Blood Urea Nitrogen 20 mg/dL (9-16); Calcium 9.6 mg/dL (8.4-10.2); Carbon Dioxide 27 mmol/L (22-29); Chloride 100 mmol/L (96-108); Creatinine Clr Calc Pharmacy 97.4; Estimated Glomerular Filt Rate > 60; Magnesium 1.7 mg/dL (1.6-2.6); Potassium 4.5 mmol/L (3.3-5.1); Sodium 135 mmol/L (135-145)
[2025-03-21] MEDS: Fluticasone/Vilanterol 100/25 BLST.W.DEV 1 PUFF INHALE (07:50)
[2025-03-21 07:52] VITALS: PULSE 98; RESP 18; O2SAT 97
[2025-03-21 07:58] VITALS: BP 131/69; PULSE 92; RESP 18; TEMP 36.1; O2SAT 95
--- NOTE | 2025-03-21 10:34 | MHC.CLN ---
F/U DIET RX: C/L PO INTAKE 50% X 3 MEALS CONTINUE TPN REVIEWED LABS COMMUNICATED WITH PHARMACY CONTINUE TPN AT 65 ML PER HOUR WITH 60 G LIPIDS TO PROVIDE 1708 TOTAL KCALS (27 KCALS/KG CMW), 78 G PROTEIN (1.2 G/KG), 234 G DEXTROSE REPLETE LYTES NEEDED
--- NOTE | 2025-03-21 12:25 | MHC.CM.PN ---
Addendum entered by Sumi Das RN 03/21/25 15:01: Per Dario Acosta, spine PA, patient will dc today home w/ [facility] for SN/PT/OT/SAP BODS DEVELOPER. Requested face to face and signed dc summary. TPN stopped. [facility] updated. Patient's will provide transport home. RN aware. Addendum entered by Sumi Das RN 03/21/25 14:45: [facility] is reviewing w/ their MD. Other AR's have declined. Original Note: CM met with patient to discuss dc plan. Patient remains on TPN and clear liquids. PT continues to recommend acute rehab, where she would also receive daily SAP BODS DEVELOPER intervention. 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 Her son is assisting w/ care at this time. This CM offered referral to [facility], patient declined. [facility] has accepted. However reports patient has a deductible and would need to pay OOP until deductible is met. Patient understands and is agreeable. She will continue to consider AR and update this CM when she has made a decision. Updates sent to all AR's via [facility]. CM will continue to follow.
--- NOTE | 2025-03-21 15:13 | W.MHC.F2F ---
Service Date Service Date: 03/21/25 Encounter Date of encounter: 03/21/25 Reasons for Services Signs and symptoms assessed: Weakness of hands, gait instability and dysphagia Reason for detention: neurological assessment and postoperative assessment and/or care Reason for physical therapy: home safety and mobility, therapeutic exercises and gait/transfer training Reason for occupational therapy: home safety and mobility, therapeutic exercises and gait/transfer training Reason for speech therapy: swallowing impairment Homebound: Leaving the home is medically contraindicated at this time without the asist of a device and/or another person due th the listed conditions above and below. Reason homebound: unsteady gait / fall risk and poor balance / fall risk Certification: Based on the above findings, I certify that this patient is confined to the home and needs intermittent detention care, physical therapy and/or speech therapy, or continues to need occupational therapy. The patient is under my care, and I have initiated the establishment of the plan of care. The patient will be followed by a physician who will periodically review the plan of care. Time Spent With Patient Time: Total time managing care of this patient today _5___ minutes.
--- NOTE | 2025-03-21 15:16 | PC.NURSE ---
PICC line removed and dressing applied. No resistance on removal and catheter tip intact with a length of 44cm.
[2025-03-21 15:35] VITALS: BP 140/83; PULSE 115; RESP 20; TEMP 36.4; O2SAT 97
--- NOTE | 2025-03-22 08:55 | HO.NEURO.PN ---
Neurosurgery Operative Note Date of Service: 03/21/25 Narrative: Postoperative day 8, anterior cervical fusion C2-3 Patient seen at bedside with Dr. Rizvi. She reports her dysphagia is improving to preop baseline. Tells us that she has been taking copious amounts of fluid today, including chicken broth, two diet cokes as well as gingerales. She otherwise feels good in his anxious to get home. She is tired of being in the hospital. Her hands continued to be numb somewhat clumsy but stronger than they were before surgery. She has been up and about her room with her walker independently, voiding. Her pain is very well controlled. She seems to be making good progress. Afebrile, mildly hypertensive, heart rate in the 100s at times Physical exam: Patient is awake alert oriented, sitting up in bed, able to stand up with her walker and independently walk around the room. Uvula swelling is mostly gone. Still has some mild bilateral hand weakness which I would rate as 4-5 but otherwise strength in the rest of the upper and lower extremities is full. Anterior neck dressing clean and dry with no signs of hematoma. Vocal sounds and phonation are strong. Impression: Postop day 8. Anterior cervical fusion C2-3 with preoperative dysphagia aggravated temporarily by surgery, which is not unusual in this approach at this level of the cervical spine. She has continued to slowly advance her diet. Follow-up modified barium swallow done a few days ago showed improvement in patient's diet was advanced to clear liquids. No aspiration seen. She continues to do well, reports that she is taking good amounts of fluids including chicken broth, drinking diet cokes and yasmany rales. She is very anxious to go home. Dr. Rizvi and I met with the patient. We had a lengthy discussion with her, but reassured her we expect the swallowing will continue to improve. She is adamant she would like to go home and that she will be able to handle taking proper amounts of fluid and calories. She has no interest in going to a rehab, and with her ongoing improvements will likely not need a PEG. 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 Dr. Rizvi feels as though the patient is safe to go home so we will plan for discharge. Patient was given specific instructions to work with her therapist at home about advancing her diet and given education on the risks and signs of aspiration and to call us or return to the hospital should she have any issues.
--- NOTE | 2025-03-28 11:11 | MHC.SPEECHCO ---
Patient was d/c from the hospital on 03/21. Attempted to schedule repeat-MBSS as outpatient 03/22 with transportation provided, however, patient stated that she would not be able to make it. MBSS was subsequently scheduled for Mon 03/25 at 10:30am, per patient, she would have transportation from family, however patient called that morning to cancel the appointment.CUPROUS CHLORIDE OPERATOR called and spoke with patient on 03/27 offering a time to reschedule on 03/28. Patient communicated that she does not want to come on 03/28 and would prefer to wait to make the appointment. CUPROUS CHLORIDE OPERATOR reviewed findings from last MBSS and concern for patient's ability to protect her airway, sustain nutrition and hydration needs on liquid diet and the effort taken to swallow each trial on MBSS. Patient again expressed she feels too weak, she thinks she is doing well right now on liquids and she's been trying soft foods, she is not ready and adamant she prefers to wait. Patient is seen by CUPROUS CHLORIDE OPERATOR in the home through [facility], next visit scheduled for 03/28 at 1pm. Patient is aware next available appointment is not for a couple of weeks as CUPROUS CHLORIDE OPERATOR is away, possibly week of 04/15 if Radiologist is available. Patient asked CUPROUS CHLORIDE OPERATOR to wait until then to check in with her and possibly schedule.
== END 2025-03-21 16:00 | disposition home health service (06) | DRG 321 ==
LOC: HO.SSS 03-20 07:58 → HO.S3 03-20 07:59
PROVIDERS: Physician Assistant Medical; Admitting Provider Neurological Surgery; PCP Internal Medicine Hematology & Oncology; Visit Provider Neurological Surgery
DX: M43.12 Spondylolisthesis, cervical region (principal); G99.2 Myelopathy in diseases classified elsewhere; E83.42 Hypomagnesemia; E87.6 Hypokalemia; R13.10 Dysphagia, unspecified; Z87.891 Personal history of nicotine dependence; Z79.899 Other long term (current) drug therapy
CPT/HCPCS: 36415; 36573; 74230; 80048; 82040; 83735; 84100; 84478; 85027; 92610; 92611; 93005; 94640; 97110; 97116; 97162; 97530; C1713; C1751; J0131; J0360; J0690; J1100; J1171; J1200; J1885; J2003; J2250; J2371; J2405; J2704; J3010; J3360; J3475; J3480

== ENCOUNTER → 2025-03-19 10:01 | Outpatient (BNV) | payer BC, SELFPAY | PROVIDERS: PCP Internal Medicine Hematology & Oncology; Visit Provider Radiology Diagnostic Radiology | DX: R13.10 Dysphagia, unspecified (principal) | CPT/HCPCS: 74230 ==

== ENCOUNTER 2025-04-03 13:47 | Outpatient (AMB) | payer BC, SELFPAY ==
--- NOTE | 2025-04-03 13:48 | HO.SPINEOV ---
Intake Visit Reasons: 1st post op Telehealth Intake Note: Ms. Samson is going to be on the phone for her 1st post op. Cmm Inspector Required: No Allergies erythromycin base (ERYTHROMYCIN BASE) Allergy (Severe, Verified 04/03/25 13:49) ANAPHYLAXIS latex (LATEX) Allergy (Severe, Verified 04/03/25 13:49) BLISTERS-SEVERE levofloxacin (From Levaquin) Allergy (Severe, Verified 04/03/25 13:49) Hives honey (HONEY) Allergy (Intermediate, Verified 04/03/25 13:49) HIVES,NAUSEA,DYSPNEA oxycodone (OXYCODONE) Adverse Reaction (Intermediate, Verified 04/03/25 13:49) NAUSEA & VOMITING, itching ENVIRONMENTAL Allergy (Intermediate, Uncoded 03/04/25 14:33) SINUS PROBLEMS,VERTIGO MAPLE SYRUP Allergy (Intermediate, Uncoded 03/04/25 14:33) Anaphylaxis Assessment & Plan Assessment & Plan (1) S/P cervical spinal fusion: Code(s): Z98.1 - Arthrodesis status Category: Surgical Plan Procedure: C2-C3 ACDF with anterior plating Talita is a pleasant 65-year-old female who I was able to conduct a 1st post-op appointment with over the phone today. She had a somewhat complicated postoperative course and was dealing with dysphagia after surgery, which was worked up by our service in conjunction with our colleagues in speech therapy. Ultimately, she was discharged home and reports that she has been doing very well since returning home. She reports she has been able to tolerate solid foods; as an example of this she stated she ate a cheeseburger after discharge home. She reports her pain has very much so improved. She does still have some swallowing troubles at times, but it is overall improved drastically since her hospital admission. She is completing basic ADLs at home without much issue. She states her incision site is closed and healing well with no swelling / drainage. Location of provider rendering services:?[facility] Location of patient:?[place], [place], [place] Patient Identification confirmed using: Name, :?Yes Telehealth?method: (audio only) Patient verbally consented to treatment:?Yes Patient verbally consented to billing insurance company:?Yes Patient informed of any privacy concerns related to visit:?Yes time spent: 17 minutes Medications: New hydrocodone-acetaminophen 5-325 mg Partial Fill upon patient request. 1 tab PO Q6H PRN 20 tabs 0RF pain Coding Level of Care Code Global (58189) Diagnoses S/P cervical spinal fusion Z98.1
--- OUTSIDE RECORDS SUMMARY | 2025-04-03 17:28 | XMS_ITS | Clinical Summary ---
Author Organization [facility] Address [address] [place] [address] Care Team Providers Care Stock Chaser Name Role Phone Zainab Tobin Primary Care [...] age to complete this topic Care Teams Stock Chaser Relationship Specialty Start Date End Date Zainab Tobin PCP - General Internal Medicine 10/15/20
== END 2025-04-03 14:14 | disposition home or self-care (01) ==
LOC: HO.HNS 13:47
PROVIDERS: Visit Provider Physician Assistant
DX: Z98.1 Arthrodesis status (principal)
CPT/HCPCS: 99024

== ENCOUNTER 2025-04-16 10:41 | Outpatient (REF) | payer BC, SELFPAY ==
--- NOTE | ~2025-04-16 | FL_ITS ---
EXAMINATION: Modified Barium Swallow CLINICAL INFORMATION: Dysphagia. COMPARISON: Modified barium swallow 03/19/2025. Correlation made with esophagram 03/15/2025. TECHNIQUE: Modified barium swallow was performed under lateral fluoroscopy with patient in standing position. Barium mixed with solids and liquids of different consistencies was administered by the speech pathologist. Examination was recorded in the fluoroscopy suite. FINDINGS: There was transient laryngeal penetration on nectar thick consistencies, and puree consistencies to the level of the cords. There was penetration with subglottic aspiration on thin liquids from cup and from spoon. There was persistent pharyngeal retention of residues despite sequential swallows. FLUOROSCOPY TIME: 5 minutes, 13 seconds Number of Spot Images: N/A DOSE AREA PRODUCT: 3023 uGy-m2 (microgray-meter squared) FL/FL Modified Barium Swallow IMPRESSION: 1. Laryngeal penetration and subglottic aspiration with thin liquids. 2. Transient laryngeal penetration on nectar thick and puree consistencies. 3. Persistent pharyngeal retention of residues. Please refer to the full speech therapy report to follow for further details. Electronically signed by: Josue Kowalski MD 04/16/2025 11:41 AM EDT
--- OUTSIDE RECORDS SUMMARY | 2025-04-16 11:59 | XMS_ITS | Clinical Summary ---
Author Organization [facility] [address] [place] [address] Address [address] [place], [place] Phone Care Team Providers Care Skin Toggler Name Role Phone Ruben Guan MD Primary Care Provider [phone] Allergies Active Allergy Reactions Criticality Noted Date [...] time each day. Med Name: balance of Super Vitamin D: 3 fruits and 3 vegetable capsules Active diphenhydrAMINE (BENADRYL) 50 mg tablet Take 1 tablet (50 mg total) by mouth if needed for itching or allergies. Active linaCLOtide (Linzess) 290 mcg capsuleIndications :Chronic idiopathic constipation Take 1 capsule (290 mcg total) by mouth 1 (one) time each day. 90 each 3 02/22/20 25 026 Active Active Problems Problem Noted Date Diagnosed Date Smoking history 10/26/2024 Thoracic spondylosis 03/10/2016 Tubular adenoma of colon 03/10/2016 Chronic idiopathic constipation 11/17/2015 HTN (hypertension) 11/17/2015 Immunizations Immunization Administration Dates Next Due Influenza trivalent, with preservative (Fluzone; Afluria) 6mo and older 06/18/2021,04/22/2020,03/28/2019,2017 PPD Test 02/10/2016 Tdap Tetanus diptheria acell ular pertussis (Boostrix; Adacel) 7yo and older 04/30/2015 Surgical History Surgery Date Site/Laterality Comments OTHER SURGICAL HISTORY 2014 Left PROCEDURE: LA ARTHRP ACETBLR/PROX FEM PROSTC AGRFT/ALGRFT PARTIAL HYSTERECTOMY 2001 PROCEDURE: LA SUPRACERVICAL ABDL HYSTER W/WO RMVL TUBE OVARY; COMMENT: prolapse CARPAL TUNNEL RELEASE Bilateral PROCEDURE: HISTORICAL CARPAL TUNNEL REL OTHER SURGICAL HISTORY 2012 Right PROCEDURE: LA EXC CYST/ABERRANT BREAST TISSUE OPEN 1/> LESION; COMMENT: beningn mass and ductectomy NOSE SURGERY PROCEDURE: LA UNLISTED PROCEDURE NOSE; COMMENT: sinoplasty OTHER SURGICAL HISTORY 11/12/13 PROCEDURE: OUTSIDE PAP SMEAR OTHER SURGICAL HISTORY PROCEDURE: ---- OTHER ----; COMMENT: inclusion cyst R neck COLONOSCOPY 10/29/08 PROCEDURE: HISTORICAL COLONOSCOPY OTHER SURGICAL HISTORY 11/2015 Right PROCEDURE: LA ARTHRP ACETBLR/PROX FEM PROSTC AGRFT/ALGRFT LUMBAR SPINE [...] Safety Answer Date Record ed Physical Abuse Unrecognized value 10/26/2024 Verbal Abuse Unrecognized value 10/26/2024 Comments No Sex and Gender Information [...] 3:20 PM EST Office Visit Gastroenterology - [place] [address] [place] [address] Anca Mendez PA [address] [place] [address] Health Maintenance Due Date Last Done Comments [...] Maintenance Results * COLONOSCOPY Anesthesia - [facility]; [facility] [email or web address] ENDOSCOPY (10/26/2024 3:16 PM EDT) Anatomical Region [...] pathology results. Narrative 10/26/2024 3:17 PM EDT [facility] Patient Name: Shira Samson Procedure [...] not prolapse). Procedure Code(s): --- Professional --- 84142, Colonoscopy, flexible; with removal of tumor(s), polyp(s), or other lesion(s) by snare technique Diagnosis Code(s): --- Professional --- Z86.010, Personal history of colonic polyps D12.2, Benign neoplasm of ascending colon D12.3, Benign neoplasm of transverse colon (hepatic flexure or splenic flexure) D12.4, Benign neoplasm of descending colon CPT copyright 2020 [employer]. All rights reserved. The codes documented in this report are preliminary and upon invoice coder review may be revised to meet current compliance requirements. Cheryl Maldonado MD 10/26/2024 3:17:26 PM This report has been signed electronically.Cheryl Maldonado MD Number of Addenda: 0 Note Initiated On: 10/26/2024 2:40 PM Scope In: Scope Out: Endoscopy Department at [facility] - [address] [place] [id number] Procedure Note Cheryl Maldonado MD - 10/26/2024 [facility] Patient Name: Shira Samson Procedure [...] not prolapse). Procedure Code(s): --- Professional --- 70543, Colonoscopy, flexible; with removal of tumor(s), polyp(s), or other lesion(s) by snare technique Diagnosis Code(s): --- Professional --- Z86.010, Personal history of colonic polyps D12.2, Benign neoplasm of ascending colon D12.3, Benign neoplasm of transverse colon (hepatic flexure or splenic flexure) D12.4, Benign neoplasm of descending colon CPT copyright 2020 [employer]. All rights reserved. The codes documented in this report are preliminary and upon invoice coder reviewmay be revised to meet current compliance requirements. Cheryl Maldonado MD 10/26/2024 3:17:26 PM This report has been signed electronically.Cheryl Maldonado MD Number of Addenda: 0 Note Initiated On: 10/26/2024 2:40 PM Scope In: Scope Out: Endoscopy Department at [facility] - [address] [place] [id number] IMPRESSION: - The examined portion of the [...] Result * Annual BMP Blood Test (11/17/2015) [facility] Annual BMP Blood Test Abstracted Result [facility] Provider HEALTH MAINTENANCE Final Result * (ABNORMAL) Lipid panel (11/17/2015) [facility] LDL/HDL Ratio 3 0 - 4 Triglycerides 155(A) 0 - 150 mg/dL Cholesterol 145 0 - 200 mg/dL HDL 51 >=40 mg/dL LDL Cholesterol 63 0 - 100 mg/dL Blood Venous blood specimen / Unknown Result [facility] Provider LAB BLOOD ORDERABLES Apurva l Result * Pap Smear (11/12/2013) [facility] Pap smear No Interpretation , Abstracted Result [facility] Provider HEALTH MAINTENANCE Final Result from Last 3 Months or Most Recently Relevant to Health Maintenance Insurance [facility] ([facility]) Care Teams Skin Toggler Relationship Specialty Start Date End Date Ruben Guan MD [address] [place] [address] PCP - General Internal Medicine 06/27/24
--- OUTSIDE RECORDS SUMMARY | 2025-04-16 11:59 | XMS_ITS | Clinical Summary ---
Author Organization [facility] Address [address] [place] [address] Care Team Providers Care Bottom Sander Name Role Phone Zainab Tobin Primary Care [...] age to complete this topic Care Teams Bottom Sander Relationship Specialty Start Date End Date Zainab Tobin PCP - General Internal Medicine 10/15/20
--- NOTE | 2025-04-19 16:44 | MHC.SPEECHCO ---
MBSS completed 04/16- Subglottic aspiration seen on thin consistency and persistent pharyngeal retention on both solids and liquids, with most difficulty clearing ground texure. Discussed recommendations w/ patient after the exam. Recommend PUREED (NDD1) diet and NECTAR THICK liquids, with continued speech therapy through [facility].
--- NOTE | 2025-04-23 10:26 | MHC.SL.IMP ---
Date of Plan of Treatment: 04/16/25 Onset of Symptoms/Illness: 03/13/25 Date Treatment Started: 04/16/25 Admitting Diagnosis: Status-post C2-3 ACDF with anterior plating surgery 03/13/25 Primary Speech & Language Diagnosis: R13.13 Pharyngeal Phase Dysphagia Reason for Today's Visit: 50974 Modified Barium Swallow Study Medical History: Modified Barium Swallow Study Fluoroscopic Evaluation of Swallowing Function CPT Code 41325 Evaluation Year: 2024 Reason for Study: Difficulty swallowing s/p neck surgery Referring Physician: Dario WORLEY Evaluating Clinician: Alison Osborne MA, CCC-LEGAL MANAGER Study Number: 1 Patient Name: Talita Samson Status: Outpatient, Wheelchair Age: 65 Sex: Female Medical History Status-post C2-3 ACDF with anterior plating surgery 03/13/25 Year of Onset or Diagnosis: 2024 Pain: None reported at time of study SUBJECTIVE: Patient is a 65 year old woman with significant pharyngeal dysphagia s/p C2-C3 ACDF w/ anterior plating surgery on 03/13, for which she was hospitalized 03/13-03/21. Patient had multiple MBSS?s done during her hospitalization on 03/15 and 03/19. Her first exam showed significant pharyngeal retention with practically no clearing and subsequent aspiration on thin and honey thick consistencies. Her repeat-MBSS showed some improvement, though still with significant pharyngeal retention, especially on pureed consistency. Patient was recommended thin liquids only (liquid diet) for partial PO therapeutically with continuation of alternative nutrition via TPN, continued dysphagia treatment and then repeat-MBSS. Patient was discharged from the hospital on a liquid diet on 03/21. Patient continues to see a speech therapist in the home on a weekly basis for her swallow. This date, patient reports her swallow continues to improve. She says she complied with liquid diet for ?a few days? and then gradually began to try different foods. At this time, she says she is not limited in what she is able to eat, and has been eating solid foods such as sandwiches and pizza. She continues to complain of post nasal drip and a sensation of saliva sticking in her throat, which she says is sometimes exacerbated by oral intake. She says she attempts to ?bring it back up,? and does not seem to expectorate any food particles. Oral Motor Exam Facial Symmetry: Symmetrical Mouth Occlusion: Normal Oral-Facial Teeth Characteristics: Dental Appliance Oral-Facial Lip Pucker Description: Normal Oral-Facial Smile (Lips) Description: Normal Oral-Facial Puff Cheeks Description: Normal Tongue Size: Normal Tongue Excursion Description: Normal Tongue Range of Movement Description: Normal Tongue Speed of Movement Description: Normal Tongue Strength of Movement (against opposing pressure): Normal Tongue Movement Characteristics: Normal/Absent Is patient able to manage secretions?: Yes Is patient able to produce volitional cough?: Yes Food and Liquid Trials: Oral Impairment: Lip Closure: 0=No labial escape Oral Impairment: Tongue Control During Bolus Hold: 1=Escape to lateral buccal cavity/floor of mouth (FOM) Oral Impairment: Bolus Preparation/Mastication: 1=Slow prolonged chewing/mashing with complete re-collection Oral Impairment: Bolus Transport/Lingual Motion: 0=Brisk tongue motion Oral Impairment: Oral Residue: 2=Residue collection on oral structures Oral Impairment:Initiation of Pharyngeal Swallow: 0=Bolus head at posterior angle of ramus (first hyoid excursion) Pharyngeal Impairment: Soft Palate Elevation: 0=No bolus between soft palate (SP)/pharyngeal wall (PW) Pharyngeal Impairment: Laryngeal Elevation: 0=Complete superior movement of thyroid cartilage (see description) Pharyngeal Impairment: Anterior Hyoid Excursion: 0=Complete anterior movement Pharyngeal Impairment: Epiglottic Movement: 1=Partial inversion Pharyngeal Impairment: Laryngeal Vestibular Closure:: 1=Incomplete: narrow column air/contrast in laryngeal vestibule Pharyngeal Impairment: Pharyngeal Stripping Wave: 1=Present: diminished Pharyngeal Impairment: Pharyngeal Contraction: Did not test Pharyngeal Impairment: Pharyngoesophageal Segment Openin=Minimal distension/minimal duration: marked obstruction of flow Pharyngeal Impairment: Tongue Base (TB) Retraction: 1=Trace column of contrast/air between TB and posterior PW Pharyngeal Impairment: Pharyngeal Residue: 3=Majority of contrast within or on pharyngeal structures Pharyngeal Impairment: Esophageal Clearance Upright Position: Did not test Impressions and Recommendations OBJECTIVE: Time-out: performed at 11:00 Evaluation Start: 10:30; Stop: 10:40 Patient Positioning: Seated 70-90 degrees Viewing Planes: LATERAL ONLY Contrast: MBSImP? Standardized Protocol using commercially prepared, standardized Barium viscosities, including: Varibar? THIN LIQUID (40% w/v, <15 cps) , Varibar? NECTAR (40% w/v, <150-450 cps) , Varibar? PUDDING (40% w/v, <7695-3393 cps) MBSImP ID: [id number] MBSImP Results: Lip closure for intraoral bolus containment resulted in no labial escape. Tongue control during bolus hold allowed bolus escape to the lateral buccal cavity/floor of mouth. Bolus preparation and mastication resulted in slow, prolonged chewing/mashing but with complete re-collection. Bolus transport/lingual motion was with brisk tongue motion. Oral residue was a collection on oral structures. Initiation of the pharyngeal swallow occurred as the bolus head reached the posterior angle of the mandibular ramus. Soft palate elevation resulted in no bolus between the soft palate and the pharyngeal wall. Laryngeal elevation demonstrated complete superior movement of the thyroid cartilage with complete approximation of the arytenoids to the epiglottic petiole. Anterior hyoid excursion demonstrated complete anterior movement. Epiglottic movement resulted in partial inversion. Laryngeal vestibular closure was incomplete, with a narrow column of air/contrast noted within the laryngeal vestibule at the height of the swallow. Pharyngeal stripping wave was present, but diminished. Pharyngeal contraction could not be determined due to logistical reasons not related to physiologic impairment. Pharyngoesophageal segment opening demonstrated minimal distension/minimal duration, with marked obstruction of bolus flow. Tongue base retraction allowed a trace column of contrast or air between the retracted tongue base and the posterior pharyngeal wall. Pharyngeal residue was the majority of contrast within or on pharyngeal structures. Esophageal clearance in the upright position could not be assessed due to logistical reasons not related to physiologic impairment. Oral Impairment Score: 4 Pharyngeal Impairment Score: 8 (absence of score, component 13) Esophageal Impairment Score: --- (absence of score, component 17) Laryngeal Penetration and Aspiration: Both Penetration and Aspiration were observed in today's study. Pudding-thick, Hannaford-thick Contrast entered the airway, remained above the vocal folds, and were ejected from the airway. Pudding-thick, Hannaford-thick Contrast entered the airway, contacted the vocal folds, and were ejected from the airway. Thin Contrast entered the airway, passed below the vocal folds, and no effort was made to eject. ASSESSMENT: This exam was performed by the radiologist and the speech pathologist. Patient was seated upright at 90 degrees for lateral view only. She was able to feed herself when handed utensils and trialed the following consistencies: -Thin (via teaspoon, cup sip) -Hannaford thick (via teaspoon, cup sip) -Puree (mixture applesauce w/ barium pudding) -Ground (mixture chicken salad w/ barium pudding) Oral phase was overall functional. Good oral containment with adequate lip closure and no anterior loss of bolus. Trace pooling of liquid to the floor of mouth, but no posterior escape from the oral cavity. Mastication of soft solid was mildly prolonged. Posterior lingual motion was brisk and timely for bolus transport. Pharyngeal swallow trigger was also timely, initiated as the bolus reached the posterior angle of the ramus. Post-swallow, there was trace lingual residue on liquid and semi-solid consistencies. On trials of ground solid, there was an increase in oral residuals, but it was still minimal and cleared on secondary swallows. No evidence of nasopharyngeal reflux. Complete laryngeal elevation, but with partial epiglottic inversion and incomplete laryngeal vestibular closure, resulting in partially open airway: -Thin liquid: On teaspoon sips, there was trace penetration above the vocal folds, which partially cleared spontaneously. There was minimal pooling in the pyriforms, also partially cleared with multiple swallows. When patient took a sip from the cup, there was penetration to the level of the vocal folds during the swallow and minimal to moderate pooling of contrast in the valleculae and pyriforms. Patient continued swallowing in an attempt to clear residuals and subsequently, a trace amount of contrast spilled over from the pyriform into the airway, resulting in silent aspiration below the vocal folds. Patient did not elicit a spontaneous cough during the aspiration event. She was cued to clear her throat which did not prevent aspiration. -Hannaford thick liquid: There was penetration above the vocal folds on teaspoon sips and to the level of the vocal folds on cup sips. Approximately 40-50% of bolus collected in the valleculae and pyriforms after the initial swallow. Patient was cued for dry swallows, which reduced pharyngeal residuals and cleared contrast from the airway. -Pureed solid: There was trace penetration to the vocal folds during the swallow, cleared on throat clearing. Approximately 50% of the bolus collected in the valleculae and pyriforms, as well as the posterior pharyngeal wall. Patient reduced some residuals with multiple dry swallows. -Ground solid: No evidence of aspiration or penetration. A majority of the bolus retained in the valleculae and pyriforms and was difficult for the patient to clear. Patient was unable to tuck her chin for chin tuck maneuver. She turned her head to the right and then to the left for dry swallowing with no effect. Patient swallowing many times with her head posture in a neutral position with minimal effect in reducing residuals. Patient requested sips of liquid, indicating she ?always has to wash food down with a lot of liquid.? Patient took sips of nectar thick liquid by cup. She appeared to swallow the liquid with solid residuals remaining in the pharynx. There was minimal distention and marked obstruction of flow through the pharyngoesophageal segment opening, most apparent during solid trials. The patient's performance in today's study indicated impairment in swallowing as outlined in the table below: -Partial epiglottic inversion contributed to aspiration and penetration -Incomplete laryngeal vestibular closure contributed to aspiration and penetration -Impaired PES opening impeded bolus flow and contributed to pharyngeal residue Liquid Intake Recommendation: Hannaford Thick Liquid Intake Strategies: Small Sips, No Straws, Double Swallow Dietary Recommendations: Pureed (NDD1) Medication Administration: Crushed with Puree Please contact the pharmacy regarding appropriate crushable or liquid drug formulations that are available whenever modified delivery is recommended. Compensatory Strategies Recommended: Sitting Upright (90 deg), Double Swallow, No Straw, Small Bites and Sips, Alternate Liquids/Solids, Rate of Ingestion Change Recommended Treatments: Compens. Strategy Educat. Recommendation for Speech Therapy: Speech Therapy through [facility] Text Comment: Intake Recommendations: Route: PO Diet Grade: Puree Liquid Consistencies: Hannaford Post-Study Functional Oral Intake Scale (FOIS): 5- Total oral intake of multiple consistencies requiring special preparation Patient presents with significant pharyngeal dysphagia, s/p C2-C3 ACDF with anterior plating surgery. Today?s exam showed subglottic aspiration with thin liquids and transient laryngeal penetration on nectar thick and pureed consistencies. There was persistent pharyngeal retention of residuals, especially on more viscous or solid consistencies. Suggested Referrals: The patient might benefit from a referral to: -Gastroenterology Indication for Referral: Patient presents with marked obstruction of flow through the PES (? Indication for balloon dilation at [facility]) -Nutrition Services Indication for Referral: Nutrition risk d/t conservative diet and effortful swallowing Therapy Recommendations: Therapy will be continued Frequency per Week: 1 Number of Weeks: 8 Patient is recommended to continue speech therapy services through the [facility] for the treatment of dysphagia 1x weekly x 8 weeks. Goals to target continued education in regards to the findings of today?s exam and risks of aspiration, diet modification, and training of compensatory strategies. Patient is recommended a PUREED (NDD1) diet and NECTAR THICK liquids, with pills CRUSHED in PUREE. The following strategies are crucial for patient?s tolerance: -take one bite at a time -after each bite, follow with multiple dry swallows -alternate bites with sips of liquid -liquids by teaspoon or small, individual cup sips -AVOID CHAIN SIPPING -AVOID THE USE OF STRAWS -after each sip, clear throat, then re-swallow -maintain upright 90 degree position during PO intake and for at least 30 minutes afterwards -maintain stringent oral care routine (ideally before each meal) LEGAL MANAGER discussed with patient recommendations for diet consistencies and strategies after the exam. While patient acknowledged this exam showed aspiration with thin liquids, she also expressed hesitancy with complying with a thickened liquid diet. Consider Art Free Water Protocol between meals to promote hydration and hopefully to increase compliance to thickened liquids during meals: LEGAL MANAGER reiterated based on MBSS findings, patient is likely to aspirate when drinking thin liquids, which has other associated medical risks. Art Water Protocol permits water only between meals only and not with food intake, with thorough oral care to be completed beforehand. Water to be consumed by teaspoon only, with volitional throat clear/ dry swallow after each sip. While these measures would not prevent aspiration of thin liquid, they may decrease the risk of subsequent infection. Short Term Goals: ? Diet - The patient will tolerate a pureed diet with nectar thick liquids without signs or symptoms of penetration/aspiration 100% of the time. - The patient will participate in therapeutic PO trials with the LEGAL MANAGER. ? Guidelines - The patient will comply with/recall the following guidelines/strategies 100% of the time with no cuing: Hannaford-thick Liquid, Bolus Volume Change, Rate of Ingestion Change, Liquid Wash, Additional Swallow(s) per Bolus, Throat Clear, No Straws. ? Education - The patient, family will verbalize/demonstrate understanding of the results of this evaluation, the above recommendations, and the swallowing guidelines. Clinician - Supplemental, Miscellaneous Communication: It is important to note MBSS objective studies are snapshots in time and Patient function might vary with factors such as time of day or concomitant medical conditions. For this reason, the final treatment plan for this patient should rest with their medical care team. Additional recommendations should be considered with the totality of the Patient in mind. Thank for the opportunity to participate in the care of this patient. If you have any questions about the content of this report, please contact the [facility]. Education: Education regarding findings from today's study and plans for therapy were provided to Patient only through Verbal Instruction. Frequency/Duration: 1x weekly x 8 weeks Date Range for Service Requested: Timeline to reassess: 3 months (w/ MBSS if indicated) Trust Manager Assistant Clinician/Clinical Fellow: No Supervisory Statement: N/A Speech Language Pathologist: Alison Osborne M.A., CCC-LEGAL MANAGER
== END 2025-04-16 10:42 | disposition home or self-care (01) ==
LOC: HO.XRAY 10:41
PROVIDERS: Visit Provider Physician Assistant
DX: R13.10 Dysphagia, unspecified (principal)
CPT/HCPCS: 74230; 92611

== ENCOUNTER → 2025-04-16 11:00 | Outpatient (BNV) | payer BC, SELFPAY | PROVIDERS: Visit Provider Radiology Diagnostic Radiology | DX: R13.10 Dysphagia, unspecified (principal) | CPT/HCPCS: 74230 ==

== ENCOUNTER 2025-05-30 13:56 | Outpatient (REF) | payer BC, SELFPAY ==
--- NOTE | ~2025-05-30 | XR_ITS ---
EXAMINATION: XR CERVICAL SPINE CLINICAL INFORMATION: G95.9 - Disease of spinal cord, unspecified COMPARISON: Cervical spine 02/13/2025 TECHNIQUE: 4 views of the cervical spine were obtained. FINDINGS: There is anterior listhesis C2 over C3 with disc prostheses and ventral plate and screws for stabilization, new since 02/13/2025. There is a large ventral osteophyte with fusion extending from C3 through C6 vertebra. Loss of C5-6, C6-C7 and C7-T1 disc height is noted. No lytic or sclerotic process seen. The prevertebral soft tissues are normal. On flexion-extension views there is no movement seen at the fused C2-3 disc level. Rest of the discs are ventrally fusiformly large osteophyte or bony bar. XR/XR cervical spine 4V IMPRESSION: New C2-C3 disc prostheses and ventral plate and screws for fusion with no subluxation seen on flexion-extension. Large ventral osteophyte extending from C3 to C6 vertebra is stable. Electronically signed by: Kip Canales MD 05/30/2025 02:48 PM EST
== END 2025-05-30 13:57 | disposition home or self-care (01) ==
LOC: HO.HOSX 13:56
PROVIDERS: Visit Provider Physician Assistant
DX: Z47.89 Encounter for other orthopedic aftercare (principal); G95.9 Disease of spinal cord, unspecified
CPT/HCPCS: 72050

== ENCOUNTER 2025-05-30 13:56 | Outpatient (AMB) | payer BC, SELFPAY ==
--- NOTE | 2025-05-30 14:00 | A.SPINEOV_ITS ---
Intake Visit Reasons: 6 weeks f/up Intake Note: Ms. Max is here today for her 6 weeks F/u. Inventory Analyst Required: No Allergies erythromycin base (ERYTHROMYCIN BASE) Allergy (Severe, Verified 04/03/25 13:49) ANAPHYLAXIS latex (LATEX) Allergy (Severe, Verified 04/03/25 13:49) BLISTERS-SEVERE levofloxacin (From Levaquin) Allergy (Severe, Verified 04/03/25 13:49) Hives honey (HONEY) Allergy (Intermediate, Verified 04/03/25 13:49) HIVES,NAUSEA,DYSPNEA oxycodone (OXYCODONE) Adverse Reaction (Intermediate, Verified 04/03/25 13:49) NAUSEA & VOMITING, itching ENVIRONMENTAL Allergy (Intermediate, Uncoded 03/04/25 14:33) SINUS PROBLEMS,VERTIGO MAPLE SYRUP Allergy (Intermediate, Uncoded 03/04/25 14:33) Anaphylaxis Assessment & Plan Assessment & Plan (1) Cervical myelopathy: Code(s): G95.9 - Disease of spinal cord, unspecified Category: Medical Plan Mrs Max is 2-1/2 months out from her anterior cervical fusion C2-3 for cervical myelopathy. Her swallowing issues are resolving but not completely gone. She eats most things at this point. Her walking is still giving her some trouble. She is interested in doing outpatient PT once the speech pathologist's are done coming to her house. Her hands are still numb an itchy at times. She has hypersensitivities. A lot of these things may persist, or may just get better in time. It may take up to a year. Her x-rays look great today. It looks like there is already some bone starting to form inside the cage. We talked about activity guidelines, restrictions and expectations after treatment of cervical myelopathy with anterior cervical fusion. I told her to call me if she would like to do the outpatient PT at any time. I will see her back in 2 months for final postoperative visit. Dario Rizvi MD, PhD [facility] Orders: Orders XR cervical spine 4V Today G95.9 - Disease of spinal cord, unspecified Coding Level of Care Code Global (93812) Diagnoses Cervical myelopathy G95.9
--- OUTSIDE RECORDS SUMMARY | 2025-05-30 17:22 | XMS_ITS | Clinical Summary ---
Author Organization [facility] [address] [place] [address] [address] [place], [place] Phone Care Team Providers Care Loans Officer Name Role Phone Ruben Guan MD Primary Care Provider [phone] Allergies Active Allergy Reactions Criticality Noted Date [...] time each day. Med Name: balance of [employer]: 3 fruits and 3 vegetable capsules Active [...] Comments OTHER SURGICAL HISTORY 2014 Left PROCEDURE: AL ARTHRP ACETBLR/PROX FEM PROSTC AGRFT/ALGRFT PARTIAL HYSTERECTOMY 2001 PROCEDURE: AL SUPRACERVICAL ABDL HYSTER W/WO RMVL TUBE OVARY; COMMENT: prolapse CARPAL TUNNEL RELEASE Bilateral PROCEDURE: HISTORICAL CARPAL TUNNEL REL OTHER SURGICAL HISTORY 2012 Right PROCEDURE: AL EXC CYST/ABERRANT BREAST TISSUE OPEN 1/> LESION; COMMENT: beningn mass and ductectomy NOSE SURGERY PROCEDURE: AL UNLISTED PROCEDURE NOSE; COMMENT: sinoplasty OTHER SURGICAL HISTORY 11/12/13 PROCEDURE: OUTSIDE PAP SMEAR OTHER SURGICAL HISTORY PROCEDURE: ---- OTHER ----; COMMENT: inclusion cyst R neck COLONOSCOPY 10/29/08 PROCEDURE: HISTORICAL COLONOSCOPY OTHER SURGICAL HISTORY 11/2015 Right PROCEDURE: AL ARTHRP ACETBLR/PROX FEM PROSTC AGRFT/ALGRFT LUMBAR SPINE [...] 3:20 PM EST Office Visit Gastroenterology - [address] [place] [address] Anca Mendez PA [address] [place] [address] Health Maintenance Due Date Last Done Comments [...] - PCV) 03/11/2024 03/11/2023 Depression Screening 07/18/2024 COVID-19 Vaccine ( - season) 2025 05/14/2024, 04/16/2022, 05/18/2021, Additional history exists Influenza Vaccine (#1) 2025 , 05/20/2023, 05/21/2022, Additional history exists DTaP,Tdap,and Td Vaccines (3 - Td or Tdap) 10/31/2033 11/01/2023, 04/30/2015 Colorectal Cancer Screening: Colonoscopy 10/26/2034 10/26/2024, 12/20/2012 RSV Immunization Adult Patients (1 - 1-dose 75+ series) 2037 HIB Vaccines Aged Out No longer eligi [...] Maintenance Results * COLONOSCOPY Anesthesia - MAC; [facility] ENDOSCOPY (10/26/2024 3:16 PM EDT) [...] pathology results. Narrative 10/26/2024 3:[address] [facility] Patient Name: Shira Samson Procedure [...] not prolapse). Procedure Code(s): --- Professional --- 79452, Colonoscopy, flexible; with removal of tumor(s), polyp(s), or other lesion(s) by snare technique Diagnosis Code(s): --- Professional --- Z86.010, Personal history of colonic polyps D12.2, Benign neoplasm of ascending colon D12.3, Benign neoplasm of transverse colon (hepatic flexure or splenic flexure) D12.4, Benign neoplasm of descending colon CPT copyright 2020 [employer]. All rights reserved. The codes documented in this report are preliminary and upon area loss prevention manager review may be revised to meet current compliance requirements. Cheryl Maldonado MD 10/26/2024 3:17:26 PM This report has been signed electronically.Cheryl Maldonado MD Number of Addenda: 0 Note Initiated On: 10/26/2024 2:40 PM Scope In: Scope Out: Endoscopy Department at [facility] - [address] [place] [id number] Procedure Note Cheryl Maldonado MD - 10/26/2024 [facility] Patient Name: Shira Samson Procedure [...] not prolapse). Procedure Code(s): --- Professional --- 71485, Colonoscopy, flexible; with removal of tumor(s), polyp(s), or other lesion(s) by snare technique Diagnosis Code(s): --- Professional --- Z86.010, Personal history of colonic polyps D12.2, Benign neoplasm of ascending colon D12.3, Benign neoplasm of transverse colon (hepatic flexure or splenic flexure) D12.4, Benign neoplasm of descending colon CPT copyright 2020 [employer]. All rights reserved. The codes documented in this report are preliminary and upon area loss prevention manager reviewmay be revised to meet current compliance requirements. Cheryl Maldonado MD 10/26/2024 3:17:26 PM This report has been signed electronically.Cheryl Maldonado MD Number of Addenda: 0 Note Initiated On: 10/26/2024 2:40 PM Scope In: Scope Out: Endoscopy Department at [facility] - [address] [place] [id number] IMPRESSION: - The examined portion of the [...] Result * Annual BMP Blood Test (11/17/2015) [facility] Annual BMP Blood Test Abstracted Historical Provider HEALTH MAINTENANCE Final Result * (ABNORMAL) Lipid panel (11/17/2015) [facility] LDL/HDL Ratio 3 0 - 4 Triglycerides 155(A) 0 - 150 mg/dL Cholesterol 145 0 - 200 mg/dL HDL 51 >=40 mg/dL LDL Cholesterol 63 0 - 100 mg/dL Blood Venous blood specimen / Unknown Result [facility] Historical Provider LAB BLOOD ORDERABLES Apurva l Result * Pap Smear (11/12/2013) [facility] Pap smear No Interpretation , Abstracted Historical Provider HEALTH MAINTENANCE Final Result from Last 3 Months or Most Recently Relevant to Health Maintenance Insurance [facility] ([facility] Care Teams Loans Officer Relationship Specialty Start Date End Date Ruben Guan MD [address] [place] [address] PCP - General Internal Medicine 06/27/24
--- OUTSIDE RECORDS SUMMARY | 2025-05-30 17:22 | XMS_ITS | Clinical Summary ---
Author Organization [facility] Address [address] [place] [address] Care Team Providers Care Grazing Examiner Name Role Phone Zainab Tobin Primary Care [...] age to complete this topic Care Teams Grazing Examiner Relationship Specialty Start Date End Date Zainab Tobin PCP - General Internal Medicine 10/15/20
== END 2025-05-30 15:06 | disposition home or self-care (01) ==
PROVIDERS: Visit Provider Physician Assistant
DX: G95.9 Disease of spinal cord, unspecified (principal)
CPT/HCPCS: 99024

== ENCOUNTER → 2025-05-30 14:09 | Outpatient (BNV) | payer BC, SELFPAY | PROVIDERS: Visit Provider Radiology Diagnostic Radiology | DX: G95.9 Disease of spinal cord, unspecified (principal); M25.78 Osteophyte, vertebrae | CPT/HCPCS: 72050 ==